=== PATIENT | male | born 1955 | race Caucasian/White ===

== ENCOUNTER → 2021-06-21 10:18 | Outpatient (CLI) | payer MEDICARE, OTHER, SELFPAY | PROVIDERS: Visit Provider Nurse Practitioner | DX: U07.1 COVID-19 (principal) | CPT/HCPCS: C9803; U0003; U0005 ==

== ENCOUNTER 2021-07-05 05:51 | Emergency (ER) | payer MEDICARE, OTHER, SELFPAY ==
[2021-07-05] VITALS (17 sets, daily range): BP systolic 99–158; BP diastolic 60–121; PULSE 60–83; RESP 15–24; TEMP 36.9; O2SAT 95–99; BMI 24.4
--- NOTE | 2021-07-05 05:53 | ECG_ITS ---
APPROVED REPORT Exam: Resting ECG HR:69 bpm ECG Measurements Heart Rate 69 AXES SD 186 P -27 QRSd 94 QRS -15 QT 388 T -50 QTc 415 Conclusion Normal sinus rhythm Incomplete right bundle branch block Nonspecific ST abnormality Abnormal ECG Electronically signed by : Jacob Magana MD 07/05/2021 20:35:35
--- NOTE | 2021-07-05 06:08 | CT_ITS ---
PROCEDURE INFORMATION: Exam: CT Head Without Contrast Exam date and time: 07/05/2021 6:08 AM Age: 65 years old Clinical indication: Injury or trauma; Fall; Blunt trauma (contusions or hematomas); Additional info: Syncope/fall TECHNIQUE: Imaging protocol: Computed tomography of the head without contrast. Radiation optimization: All CT scans at this facility use at least one of these dose optimization techniques: automated exposure control; mA and/or kV adjustment per patient size (includes targeted exams where dose is matched to clinical indication); or iterative reconstruction. COMPARISON: No relevant prior studies available. FINDINGS: Brain: Prominent sulci. Patchy hypodensity of the cerebral white matter which are nonspecific but likely secondary to microangiopathic changes. Cerebral ventricles: The ventricles are prominent secondary to diffuse volume loss/atrophy. The ventricular system may be mildly dilated out of proportion to the sulcal prominence. Clinical correlation is advised for possible normal pressure hydrocephalus. Paranasal sinuses: Visualized sinuses are unremarkable. No fluid levels. Mastoid air cells: Visualized mastoid air cells are well aerated. Bones/joints: Unremarkable. No acute fracture. Soft tissues: Unremarkable. IMPRESSION: Chronic age related changes but no evidence of acute intracranial pathology. The ventricular system may be mildly dilated out of proportion to the sulcal prominence. Clinical correlation is advised for possible normal pressure hydrocephalus.
--- NOTE | 2021-07-05 06:08 | XR_ITS ---
PROCEDURE INFORMATION: Exam: XR Chest Exam date and time: 07/05/2021 6:08 AM Age: 65 years old Clinical indication: Pain; Chest pressure; Additional info: Fall TECHNIQUE: Imaging protocol: XR of the chest. Views: 2 views. COMPARISON: No relevant prior studies available. FINDINGS: Lungs: Patchy airspace disease in the lateral left lung concerning for pneumonia, possibly viral. Pleural spaces: Blunting of the left costophrenic angle which may represent tiny pleural effusion or pleural fibrosis. Heart/Mediastinum: Unremarkable. No cardiomegaly. Bones/joints: Mild degenerative changes of the shoulder joints. IMPRESSION: Patchy airspace disease in the lateral left lung concerning for pneumonia, possibly viral.
--- NOTE | 2021-07-05 06:08 | XR_ITS ---
PROCEDURE INFORMATION: Exam: XR Pelvis Exam date and time: 07/05/2021 6:08 AM Age: 65 years old Clinical indication: Pain; Other: Fall TECHNIQUE: Imaging protocol: XR pelvis. Views: 1 or 2 view. COMPARISON: No relevant prior studies available. FINDINGS: Bones/joints: Bilateral total hip replacements. Soft tissues: Unremarkable. IMPRESSION: Bilateral total hip replacements. No fractures identified.
[2021-07-05 06:25] LABS: Basophils % 0.5 % (0.1-2.0); Eosinophils % 0.6 % (0.1-12.0); Hematocrit 50.1 % (42.0-52.0); Hemoglobin 17.5 g/dL (14.1-18.0); Lymphocytes % 19.4 % (10-50); Mean Corpuscular Hemoglobin 31.4 pg (27.0-31.2); Mean Corpuscular Volume 89.8 fl (80-94); Mean Platelet Volume 7.3 fl (7.4-10.4); Monocytes # 0.2 K/mm3 (0.1-1.0); Monocytes % 4.2 % (1.7-9.3); Neutrophils # 3.9 K/mm3 (1.8-7.8); Neutrophils % 75.3 % (37.0-80.0); Platelet Count 203 K/mm3 (142-424); Red Blood Count 5.57 M/mm3 (4.60-6.20); Red Cell Distribution Width 13.7 % (11.5-17.5); White Blood Count 5.2 K/mm3 (4.8-10.8)
[2021-07-05 06:28] LABS: Chloride 93 mmol/L (98-107); Sodium 134 mmol/L (136-145)
[2021-07-05 06:29] LABS: Potassium 3.5 mmoL/L (3.5-5.1)
[2021-07-05 06:31] LABS: Alanine Aminotransferase 43 U/L (12-78); Alkaline Phosphatase 144 U/L (38-126); Anion Gap 10.5 mEq/L (5-15); Aspartate Amino Transferase 49 U/L (17-59); Bilirubin,Total 0.8 mg/dl (0.2-1.3); Blood Urea Nitrogen 26 mg/dl (9-20); Carbon Dioxide 34 mmol/L (22.0-30.0); Creatinine Clearance Estimated 59 mL/min (50-200); Estimated Glomerular Filt Rate 51 ml/min (>60); GFR (African American) 61 ML/MIN (>60)
[2021-07-05 06:32] LABS: Albumin/Globulin Ratio 1.4 (1.1-1.8); Calcium 8.2 mg/dl (8.4-10.2); Globulin 2.8 g/dL (1.3-3.2); Glucose 122 mg/dl (74-100); Total Protein,Serum 6.8 g/dl (6.3-8.2)
--- NOTE | 2021-07-05 06:37 | HMH.EDSYNC ---
ED Disposition Clinical Impression: Syncope Qualifiers: Syncope type: unspecified Qualified Code(s): R55 - Syncope and collapse Disposition: Home, Self-Care Condition on Discharge: Good Instructions: DI for Syncope in Adults (Fainting) Additional Instructions: monitor bp and call pcp for follow up Referrals: Provider,Referral, [Primary Care Provider] - - Critical Care Critical Care Time: No Attestation: On 07/05/21, the high probability of a clinically significant, sudden or life threatening deterioration of the following system(s) required my full and direct attention, intervention and personal management. The time I documented below is in addition to time spent performing reported procedures but includes the following listed in this critical care notation. Medical Decision Making - Medical Records Medical records reviewed: Yes: I reviewed the patient's medical records. - Gigi Inquiry Pt receiving controlled substance: No Vital Signs: 07/05/21 05:48 07/05/21 06:41 07/05/21 06:43 Temperature 98.4 F Temperature Source Oral Pulse Rate 74 81 Pulse Rate [Apical] 70 Respiratory Rate 20 15 17 Blood Pressure 158/86 H 153/121 H Blood Pressure [Orthostatic Lying Left Arm] Blood Pressure [Orthostatic Sitting Left Arm] Blood Pressure [Orthostatic Standing Left Arm] Blood Pressure [Right Arm] 155/92 H Blood Pressure Mean 104 131 Blood Pressure Mean [Right Arm] 113 Blood Pressure Source [Right Arm] Automatic Cuff Blood Pressure Position [Right Arm] Supine 02 Sat by Pulse Oximetry 96 95 97 Oxygen Delivery Method Room Air 07/05/21 06:45 07/05/21 06:46 07/05/21 07:00 Temperature Temperature Source Pulse Rate 74 83 Pulse Rate [Apical] Respiratory Rate 17 17 Blood Pressure 130/79 136/85 Blood Pressure [Orthostatic Lying Left Arm] 158/86 H Blood Pressure [Orthostatic Sitting Left Arm] 153/121 H Blood Pressure [Orthostatic Standing Left Arm] 99/60 L Blood Pressure [Right Arm] Blood Pressure Mean 96 102 Blood Pressure Mean [Right Arm] Blood Pressure Source [Right Arm] Blood Pressure Position [Right Arm] 02 Sat by Pulse Oximetry 96 95 Oxygen Delivery Method 07/05/21 07:30 07/05/21 08:00 07/05/21 08:30 Temperature Temperature Source Pulse Rate 63 74 73 Pulse Rate [Apical] Respiratory Rate 18 22 15 Blood Pressure 141/75 H 141/76 H 154/85 H Blood Pressure [Orthostatic Lying Left Arm] Blood Pressure [Orthostatic Sitting Left Arm] Blood Pressure [Orthostatic Standing Left Arm] Blood Pressure [Right Arm] Blood Pressure Mean 97 102 104 Blood Pressure Mean [Right Arm] Blood Pressure Source [Right Arm] Blood Pressure Position [Right Arm] 02 Sat by Pulse Oximetry 97 97 98 Oxygen Delivery Method 07/05/21 09:00 07/05/21 09:31 07/05/21 10:00 Temperature Temperature Source Pulse Rate 66 72 72 Pulse Rate [Apical] Respiratory Rate 22 20 20 Blood Pressure 138/79 129/67 128/71 Blood Pressure [Orthostatic Lying Left Arm] Blood Pressure [Orthostatic Sitting Left Arm] Blood Pressure [Orthostatic Standing Left Arm] Blood Pressure [Right Arm] Blood Pressure Mean 111 87 90 Blood Pressure Mean [Right Arm] Blood Pressure Source [Right Arm] Blood Pressure Position [Right Arm] 02 Sat by Pulse Oximetry 99 96 96 Oxygen Delivery Method 07/05/21 10:30 07/05/21 11:00 07/05/21 11:30 Temperature Temperature Source Pulse Rate 66 60 69 Pulse Rate [Apical] Respiratory Rate 18 24 21 Blood Pressure 123/73 134/72 126/72 Blood Pressure [Orthostatic Lying Left Arm] Blood Pressure [Orthostatic Sitting Left Arm] Blood Pressure [Orthostatic Standing Left Arm] Blood Pressure [Right Arm] Blood Pressure Mean 91 92 88 Blood Pressure Mean [Right Arm] Blood Pressure Source [Right Arm] Blood Pressure Position [Right Arm] 02 Sat by Pulse Oximetry 97 97 97 Oxygen Delivery Me
[2021-07-05 06:45] LABS: Troponin I < 0.01 ng/ml (0.00-0.034)
[2021-07-05 07:11] LABS: Coronavirus 19, PCR Not Detected (NotDetected); Influenza A, PCR Not Detected (NotDetected); Influenza B, PCR Not Detected (NotDetected)
[2021-07-05 08:25] LABS: Microscopic, Urine URINE MICROSCOPIC (MICROSCOPIC)
[2021-07-05 08:27] LABS: Appearance,Urine CLEAR (Clear); Bilirubin,Urine Negative (Negative); Blood, Urine Negative (Negative); Color,Urine YELLOW (Yellow); Glucose,Urine (UA) Negative (Negative); Ketones,Urine Negative (Negative); Leukocyte Esterase,Urine Negative (Negative); Nitrate,Urine Negative (Negative); Protein,Urine TRACE (Negative)
[2021-07-05 08:53] LABS: Squamous Epithelial Cell,Urine Occasional #/hpf (0-5)
[2021-07-05 09:54] LABS: Troponin I < 0.01 ng/ml (0.00-0.034)
--- NOTE | 2021-07-05 10:21 | PC.NURSE ---
Patient ambulated 50 feet in room. Patient was stable and no complaints while walking.
--- NOTE | 2021-07-05 11:20 | PC.NURSE ---
waiting division order technician back from Dr. Schreiber
--- NOTE | 2021-07-05 12:20 | PC.NURSE ---
on the phone with
== END 2021-07-05 12:54 | disposition home or self-care (01) ==
PROVIDERS: Emergency Provider Emergency Medicine
DX: R55 Syncope and collapse (principal)
CPT/HCPCS: 36415; 70450; 71046; 72170; 80053; 81001; 84484; 85025; 93005; 96365; 99284; C9803; U0003; U0005

== ENCOUNTER 2021-07-06 21:07 | Inpatient (IN) | payer MEDICARE, OTHER, SELFPAY ==
[2021-07-06 21:19] VITALS: BP 136/80; PULSE 77; RESP 22; TEMP 38.1; O2SAT 93; BMI 25.7
[2021-07-06 21:30] VITALS: BP 138/81; PULSE 80; O2SAT 94
--- NOTE | 2021-07-06 21:37 | CT_ITS ---
PROCEDURE INFORMATION: Exam: CT Head Without Contrast Exam date and time: 07/06/2021 9:37 PM Age: 65 years old Clinical indication: Altered mental status/memory loss; Confusion or disorientation TECHNIQUE: Imaging protocol: Computed tomography of the head without contrast. Radiation optimization: All CT scans at this facility use at least one of these dose optimization techniques: automated exposure control; mA and/or kV adjustment per patient size (includes targeted exams where dose is matched to clinical indication); or iterative reconstruction. COMPARISON: CT HEAD/BRAIN WO CON 07/05/2021 6:31 AM FINDINGS: Brain: Periventricular and subcortical small vessel ischemic changes. Advanced atrophy associated, more than expected for age. No acute hemorrhage, mass effect, midline shift, or extra-axial fluid collection. Cerebral ventricles: Prominent ventriculomegaly, consider normal pressure hydrocephalus. Paranasal sinuses: Visualized sinuses are unremarkable. No fluid levels. Mastoid air cells: Visualized mastoid air cells are well aerated. Bones/joints: Unremarkable. No acute fracture. Soft tissues: Unremarkable. IMPRESSION: 1. No acute intracranial abnormality. 2. Atrophy with ventricles more prominent than sulci, consider normal pressure hydrocephalus. 3. No significant change since yesterday. 4. Limited study due to patient inability or unwillingness to fully cooperate.
--- NOTE | 2021-07-06 21:38 | XR_ITS ---
PROCEDURE INFORMATION: Exam: XR Chest Exam date and time: 07/06/2021 9:38 PM Age: 65 years old Clinical indication: Fever TECHNIQUE: Imaging protocol: XR of the chest. Views: 1 view. COMPARISON: CR XR CHEST 2V 07/05/2021 6:07 AM FINDINGS: Lungs: Progressive left lung infiltrate since yesterday. Pleural spaces: Unremarkable. No pleural effusion. No pneumothorax. Heart/Mediastinum: Unremarkable. No cardiomegaly. Bones/joints: Unremarkable. IMPRESSION: Progressive left lung infiltrate since yesterday.
[2021-07-06 21:51] VITALS: BP 136/76; PULSE 78; O2SAT 94
--- NOTE | 2021-07-06 21:55 | ECG_ITS ---
APPROVED REPORT Exam: Resting ECG HR:77 bpm ECG Measurements Heart Rate 77 AXES W[place] 182 P -23 QRSd 90 QRS -17 QT 368 T -27 QTc 416 Conclusion Normal sinus rhythm Nonspecific ST abnormality Abnormal ECG Electronically signed by : Jacob Magana MD 07/07/2021 12:34:32
[2021-07-06 21:56] LABS: Microscopic, Urine URINE MICROSCOPIC (MICROSCOPIC)
[2021-07-06 21:56] LABS: Basophils % 0.7 % (0.1-2.0); Eosinophils % 0.8 % (0.1-12.0); Hematocrit 48.9 % (42.0-52.0); Lymphocytes # 0.6 K/mm3 (0.7-4.5); Mean Corpuscular HGB Conc 32.6 g/dL (31.8-35.4); Mean Corpuscular Volume 95.1 fl (80-94); Mean Platelet Volume 7.6 fl (7.4-10.4); Monocytes # 0.2 K/mm3 (0.1-1.0); Neutrophils # 4.5 K/mm3 (1.8-7.8); Neutrophils % 83.5 % (37.0-80.0); Platelet Count 183 K/mm3 (142-424); Red Blood Count 5.14 M/mm3 (4.60-6.20); Red Cell Distribution Width 14.2 % (11.5-17.5); White Blood Count 5.4 K/mm3 (4.8-10.8)
--- NOTE | 2021-07-06 22:01 | HMH.EDAMS ---
ED Disposition Clinical Impression: Acute delirium, SIRS (systemic inflammatory response syndrome), COVID-19 CAP (community acquired pneumonia) Qualifiers: Laterality: left Lung location: unspecified part of lung Qualified Code(s): J18.9 - Pneumonia, unspecified organism Disposition: Admitted As Inpatient Condition on Discharge: Good - Critical Care Critical Care Time: No Attestation: On 07/06/21, the high probability of a clinically significant, sudden or life threatening deterioration of the following system(s) required my full and direct attention, intervention and personal management. The time I documented below is in addition to time spent performing reported procedures but includes the following listed in this critical care notation. Medical Decision Making - Medical Records Medical records reviewed: Yes: I reviewed the patient's medical records. - Gigi Inquiry Pt receiving controlled substance: No Vital Signs: 07/06/21 21:19 07/06/21 21:30 07/06/21 21:51 Temperature 100.6 F H Temperature Source Oral Pulse Rate 80 78 Pulse Rate [Right Brachial] 77 Respiratory Rate 22 Blood Pressure 138/81 136/76 Blood Pressure [Right Arm] 136/80 Blood Pressure Mean [Right Arm] 98 Blood Pressure Source [Right Arm] Automatic Cuff Blood Pressure Position [Right Arm] Sitting 02 Sat by Pulse Oximetry 93 L 94 L 94 L Oxygen Delivery Method Room Air Room Air Room Air 07/06/21 22:15 07/06/21 22:30 07/06/21 22:45 Temperature Temperature Source Pulse Rate 76 72 70 Pulse Rate [Right Brachial] Respiratory Rate Blood Pressure 136/80 130/70 127/68 Blood Pressure [Right Arm] Blood Pressure Mean [Right Arm] Blood Pressure Source [Right Arm] Blood Pressure Position [Right Arm] 02 Sat by Pulse Oximetry 95 94 L 94 L Oxygen Delivery Method Room Air Room Air Room Air - Lab Data Lab results reviewed: Yes: I reviewed the patient's lab results. Lab Results 07/06/21 21:17: SARS-CoV-2 (PCR) Detected A, Influenza A Untype (PCR) Not detected, Influenza Type B (PCR) Not detected 07/06/21 21:39: WBC 5.4, RBC 5.14, Hgb 16.0, Hct 48.9, MCV 95.1 H, MCH 31.0, MCHC 32.6, RDW 14.2, Plt Count 183, MPV 7.6, Neut % (Auto) 83.5 H, Lymph % (Auto) 11.0, [place] % (Auto) 4.0, Eos % (Auto) 0.8, Baso % (Auto) 0.7, Neut # (Auto) 4.5, Lymph # (Auto) 0.6 L, [place] # (Auto) 0.2, Eos # (Auto) 0.0, Baso # (Auto) 0.0, ESR 27 H 07/06/21 21:39: Sodium 129 L, Potassium 3.5, Chloride 90 L, Carbon Dioxide 34 H, Anion Gap 8.5, BUN 21 H, Creatinine 1.20, Estimated Creat Clear 73, Estimated GFR 60, Est GFR ( Amer) 73, Glucose 107 H, Calcium 8.2 L, Total Bilirubin 0.8, AST 43, ALT 31 D, Alkaline Phosphatase 117, Troponin I < 0.01, C-Reactive Protein 61.4 H, Total Protein 6.4, Albumin 3.7, Globulin 2.7, Albumin/Globulin Ratio 1.4, Procalcitonin 0.136, Salicylates < 1.0 L, Acetaminophen < 10 L 07/06/21 21:39: Lactate 1.0 07/06/21 21:39: Lactate Dehydrogenase 304 L 07/06/21 21:40: ABG pH 7.49 H, ABG pCO2 31.5 L, ABG pO2 69.3 L, ABG HCO3 23.7, ABG Total CO2 24.7, ABG O2 Saturation 95, ABG Base Excess 0.4 07/06/21 21:51: Urine Color Yellow, Urine Appearance Clear, Urine pH 6.0, Ur Specific [place] 1.020, Urine Protein Trace, Urine Glucose (UA) Negative, Urine Ketones Negative, Urine Blood Trace-i, Urine Nitrate Negative, Urine Bilirubin Negative, Urine Urobilinogen 1.0, Ur Leukocyte Esterase Negative, Ur Squamous Epith Cells Occasional 07/06/21 21:51: Urine Opiates Screen Negative, Urine Methadone Screen Negative, Ur Barbituates Screen Negative, Ur Phencyclidine Scrn Negative, Ur Amphetamines Screen Negative, U Benzodiazepines Scrn Negative, Urine Cocaine Screen Negative, U Marijuana (THC) Screen Negative Result diagrams: 07/06/21 21:39 07/06/21 21:39 Orders (Tests/Meds): ED MEDICATIONS Generic Name Dose Route Start Last Admin Trade Name Freq PRN Reason Stop Dose Admin Sodium Chloride 1,000 mls @ 999 mls/hr 07/06/21 22:00
[2021-07-06 22:02] LABS: Alanine Aminotransferase 31 U/L (12-78); Albumin Level 3.7 g/dl (3.5-5.0); Albumin/Globulin Ratio 1.4 (1.1-1.8); Alkaline Phosphatase 117 U/L (38-126); Anion Gap 8.5 mEq/L (5-15); Aspartate Amino Transferase 43 U/L (17-59); Bilirubin,Total 0.8 mg/dl (0.2-1.3); Blood Urea Nitrogen 21 mg/dl (9-20); Calcium 8.2 mg/dl (8.4-10.2); Carbon Dioxide 34 mmol/L (22.0-30.0); Chloride 90 mmol/L (98-107); Creatinine Clearance Estimated 73 mL/min (50-200); Estimated Glomerular Filt Rate 60 ml/min (>60); GFR (African American) 73 ML/MIN (>60); Globulin 2.7 g/dL (1.3-3.2); Glucose 107 mg/dl (74-100); Potassium 3.5 mmoL/L (3.5-5.1); Sodium 129 mmol/L (136-145); Total Protein,Serum 6.4 g/dl (6.3-8.2)
[2021-07-06 22:04] LABS: Acetaminophen < 10 ug/ml (10-30); Salicylate < 1.0 mg/dL (2.0-20.0)
[2021-07-06 22:08] LABS: C-Reactive Protein 61.4 mg/L (0-4)
[2021-07-06 22:15] VITALS: BP 136/80; PULSE 76; O2SAT 95
[2021-07-06 22:18] LABS: Procalcitonin 0.136 ng/mL (0.0-2.0)
[2021-07-06 22:23] LABS: Amphetamine/Metha Screen,Urine Negative ng/ml (<1000); Benzodiazepines Screen,Urine Negative ng/ml (<200)
[2021-07-06 22:24] LABS: Barbiturates Screen,Urine Negative ng/ml (<200)
[2021-07-06 22:25] LABS: Cannabinoid Screen,Urine Negative ng/ml (<50); Methadone Screen,Urine Negative ng/ml (<300)
[2021-07-06 22:26] LABS: Cocaine Screen,Urine Negative ng/ml (<300)
[2021-07-06 22:27] LABS: Appearance,Urine CLEAR (Clear); Bilirubin,Urine Negative (Negative); Blood, Urine TRACE-I (Negative); Color,Urine YELLOW (Yellow); Glucose,Urine (UA) Negative (Negative); Ketones,Urine Negative (Negative); Leukocyte Esterase,Urine Negative (Negative); Nitrate,Urine Negative (Negative); Opiate Screen,Urine Negative ng/ml (<300); Phencyclidine Screen,Urine Negative ng/ml (<25); Protein,Urine TRACE (Negative)
[2021-07-06 22:27] LABS: Erythrocyte Sedimentation Rate 27 mm/hr (0-20)
[2021-07-06 22:30] VITALS: BP 130/70; PULSE 72; O2SAT 94
[2021-07-06 22:30] LABS: Squamous Epithelial Cell,Urine Occasional #/hpf (0-5)
[2021-07-06 22:31] LABS: Troponin I < 0.01 ng/ml (0.00-0.034)
--- NOTE | 2021-07-06 22:44 | CT_ITS ---
PROCEDURE INFORMATION: Exam: CTA Chest With Contrast Exam date and time: 07/06/2021 10:44 PM Age: 65 years old Clinical indication: Shortness of breath; Additional info: SOA TECHNIQUE: Imaging protocol: Computed tomographic angiography of the chest with contrast. 3D rendering (Not supervised by radiologist): MIP and/or 3D reconstructed images were created by the technologist. Radiation optimization: All CT scans at this facility use at least one of these dose optimization techniques: automated exposure control; mA and/or kV adjustment per patient size (includes targeted exams where dose is matched to clinical indication); or iterative reconstruction. Contrast material: ISOVUE; Contrast volume: 70 ml; Contrast route: INTRAVENOUS (IV); COMPARISON: CR XR CHEST PORTABLE 07/06/2021 10:03 PM FINDINGS: Pulmonary arteries: No CT evidence of pulmonary embolus. Aorta: Unremarkable. No aortic aneurysm. No aortic dissection. Lungs: Peripheral ground-glass infiltrates characteristic of COVID-19. Pleural spaces: Unremarkable. No pneumothorax. No pleural effusion. Heart: Unremarkable. No cardiomegaly. No pericardial effusion. Lymph nodes: Unremarkable. No enlarged lymph nodes. Bones/joints: Unremarkable. No acute fracture. Soft tissues: Unremarkable. IMPRESSION: 1. Peripheral ground-glass infiltrates characteristic of COVID-19. 2. No CT evidence of pulmonary embolus.
[2021-07-06 22:45] VITALS: BP 127/68; PULSE 70; O2SAT 94
[2021-07-06 22:50] VITALS: BMI 25.1
[2021-07-06 22:51] LABS: Lactate Dehydrogenase 304 U/L (313-618)
[2021-07-06 22:53] LABS: ABG Base Excess 0.4 mmol/L (-2.4-2.3); ABG HCO3 23.7 mmhg (22.0-26.0); ABG Oxygen Saturation 95 % (90-100); ABG PCO2 31.5 mmhg (35.0-45.0); ABG PH 7.49 mmol/L (7.35-7.45); ABG PO2 69.3 mmhg (80-100); ABG TCO2 24.7 mmhg (23-27)
[2021-07-06 23:10] LABS: Influenza A, PCR Not Detected (NotDetected); Influenza B, PCR Not Detected (NotDetected)
[2021-07-06 23:30] LABS: Coronavirus 19, PCR Detected (NotDetected)
[2021-07-07] VITALS (10 sets, daily range): BP systolic 125–150; BP diastolic 59–71; PULSE 40–102; RESP 16–20; TEMP 36.3–37.4; O2SAT 94–99; BMI 25.4; BMI 25.3
--- NOTE | 2021-07-07 00:33 | PC.NURSE ---
Patient arrived to the floor via stretcher at this time with staff.
[2021-07-07 01:30] LABS: Troponin I < 0.01 ng/ml (0.00-0.034)
[2021-07-07 03:55] LABS: POC Glucose,Bedside 120 (70-110)
[2021-07-07 04:14] LABS: Basophils % 0.3 % (0.1-2.0); Eosinophils % 0.1 % (0.1-12.0); Hematocrit 45.6 % (42.0-52.0); Lymphocytes # 0.7 K/mm3 (0.7-4.5); Lymphocytes % 13.6 % (10-50); Mean Corpuscular HGB Conc 32.8 g/dL (31.8-35.4); Mean Corpuscular Hemoglobin 30.9 pg (27.0-31.2); Mean Corpuscular Volume 94.2 fl (80-94); Mean Platelet Volume 7.9 fl (7.4-10.4); Monocytes # 0.2 K/mm3 (0.1-1.0); Monocytes % 2.9 % (1.7-9.3); Neutrophils # 4.3 K/mm3 (1.8-7.8); Neutrophils % 83.1 % (37.0-80.0); Platelet Count 164 K/mm3 (142-424); Red Blood Count 4.84 M/mm3 (4.60-6.20); White Blood Count 5.1 K/mm3 (4.8-10.8)
[2021-07-07 04:15] LABS: Chloride 97 mmol/L (98-107)
[2021-07-07 04:16] LABS: Potassium 4.1 mmoL/L (3.5-5.1); Sodium 132 mmol/L (136-145)
[2021-07-07 04:19] LABS: Anion Gap 9.1 mEq/L (5-15); Blood Urea Nitrogen 20 mg/dl (9-20); Calcium 7.5 mg/dl (8.4-10.2); Carbon Dioxide 30 mmol/L (22.0-30.0); Creatinine Clearance Estimated 66 mL/min (50-200); Estimated Glomerular Filt Rate 55 ml/min (>60); GFR (African American) 67 ML/MIN (>60); Glucose 128 mg/dl (74-100)
[2021-07-07 04:33] LABS: Troponin I < 0.01 ng/ml (0.00-0.034)
--- NOTE | 2021-07-07 07:29 | PC.NURSE ---
pt has been sleeping all night and arouses when name called only, pt seems as if he has been sedated,confused at times, VSS, pt has been afebrile cool and sweaty, tele reveals bradycardia hr in 40's and 50's, f/c to bsd, pt able to follow commands when asked, fsbs checked related to sweating as was 120.
--- NOTE | 2021-07-07 08:23 | HMH.PHAVTE ---
[facility] VTE Monitoring - Patient Demographics Admission date: 07/07/21 Report Date: 07/07/21 Time: 08:23 Allergies/Adverse Reactions: Patient Allergies codeine Adverse Reaction (Unknown, Verified 07/07/21 07:35) NAUSEA/VOMITING Height: 1.83 m Weight: 85.275 kg Patient Problems: Current Active Problems Acute delirium (Acute) CAP (community acquired pneumonia) (Acute) SIRS (systemic inflammatory response syndrome) (Acute) COVID-19 (Acute) - VTE Risk Labs: VTE Related Lab Results Hgb 15.0 g/dL (14.1-18.0) 07/07/21 03:55 Hct 45.6 % (42.0-52.0) 07/07/21 03:55 Plt Count 164 K/mm3 (142-424) 07/07/21 03:55 BUN 20 mg/dl (9-20) 07/07/21 03:55 Creatinine 1.30 mg/dl (0.66-1.25) H 07/07/21 03:55 Estimated Creat Clear 66 mL/min (50-200) 07/07/21 03:55 Was VTE Risk Assessment Performed: Yes VTE Score: 4 VTE Risk Level: Low Risk Clinical Trial Participant: No - Prophylaxis VTE Prophylaxis Ordered?: Yes Types of VTE Prophylaxis: TEDS Knee High
--- NOTE | 2021-07-07 10:30 | HMH.HP ---
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 His recent history is somewhat complex, he was diagnosed with COVID-19 pneumonia on June 17, had fairly mild disease-has had Moderna vaccinations, and he and his both had fairly mild cases and he improved but approximately 4 days ago began to become very confused, have the recurrent onset of fever. They went to his family practice group in [place], and were given instructions to take vitamin D and zinc. He did not feel much better and presented to the emergency department here a couple of days ago, and apparently was diagnosed with syncope although there is no ER documentation that I can find in the computer, there is a discharge packet that indicated he was diagnosed with syncope and instructed to drink more fluids. Did not feel much better after this and came back to the emergency department late yesterday. Found to be febrile, chest x-ray showed infiltrate and possible bacterial pneumonia, admitted to hospital for further diagnostic testing. CT of head was done which was nondiagnostic. Labs showed minimal acute kidney injury and inflammatory markers positive but otherwise nondiagnostic. His notes that he has been very confused at night, has been falling at home, and has simply not been himself and has been very lethargic and dazed at home. [facility] History I have reviewed the patient's past medical history: Yes Medical History: Reports:: Hyperlipidemia, Hypertension *Have you ever received a pneumonia vaccine?: No *Have you received a flu vaccine this season?: No Other Medical History: Reports: Arthritis Comment:: On chronic immunosuppressive medications Laterality Cases: Left: Arthroscopy Knee, Bilateral: Total Hip Replacement Other Surgeries: Yes: Cholecystectomy - *Social History Smoking Status: Former smoker Alcohol Intake: never *Occupational Status:: employed *Travel in the last 8 weeks: None Family Hx:: Unable to obtain Review of Systems - Review of Systems Review of systems:: unable to obtain - *Neurologic Reports confusion, Denies abnormal speech, Denies localized weakness, Denies headache(s), Denies seizure-like activity Meds Home Medications Medication Instructions Recorded Confirmed Type Tramadol HCl [Tramadol 50mg 50 mg PO DAILYP PRN 07/05/21 07/07/21 History Tab] Triamterene/Hydrochlorothiazid 1 each PO DAILY 07/05/21 07/06/21 History [Triamterene-Hctz 37.5-25 mg Tb] Zinc 50 mg PO DAILY 07/05/21 07/06/21 History predniSONE [Prednisone 5mg 5 mg PO DAILY 07/05/21 07/06/21 History Tab] Cholecalciferol (Vitamin D3) 1,000 unit PO DAILY 07/06/21 07/06/21 History [Vitamin D3 1,000 Unit Cap] Allergies Allergy/AdvReac Type Severity Reaction Status Date / Time codeine AdvReac Unknown NAUSEA/VOMI Verified 07/07/21 07:35 TING Exam Vital signs and Labs for Last 24 Hours: Temp Pulse Resp BP Pulse Ox 97.4 F L 48 L 16 128/71 98 07/07/21 08:00 07/07/21 08:00 07/07/21 08:00 07/07/21 08:00 07/07/21 08:00 Laboratory Results - last 24 hr 07/06/21 21:17: SARS-CoV-2 (PCR) Detected A, Influenza A Untype (PCR) Not detected, Influenza Type B (PCR) Not detected 07/06/21 21:39: WBC 5.4, RBC 5.14, Hgb 16.0, Hct 48.9, MCV 95.1 H, MCH 31.0, MCHC 32.6, RDW 14.2, Plt Count 183, MPV 7.6, Neut % (Auto) 83.5 H, Lymph % (Auto) 11.0, [place] % (Auto) 4.0, Eos % (Auto) 0.8, Baso % (Auto) 0.7, Neut # (Auto) 4.5, Lymph # (Auto) 0.6 L, [place] # (Auto) 0.2, Eos # (Auto) 0.0, Baso # (Auto) 0.0, ESR 27 H 07/06/21 21:39: Sodium 129 L, Potassium 3.5, Chloride 90 L, Carb
--- NOTE | 2021-07-07 10:34 | FL_ITS ---
PROCEDURE: FL GUIDED LUMBAR PUNCTURE LP CLINICAL INDICATION: MS CHANGES COMPARISON: No exams were available for comparison TECHNIQUE: Informed consent was obtained prior to procedure. Under local anesthesia with 1% lidocaine and under fluoroscopic guidance a 20-gauge spinal needle was inserted into the L3-L4 interspace. Approximately 10 cc of clear CSF was obtained and sent to laboratory for analysis. Opening pressure was obtained with the patient in the prone position and was less than 3 cc. The patient tolerated the procedure well without evidence of immediate complication IMPRESSION: Successful fluoroscopy guided lumbar puncture without complications. Dictated by: Jeronimo Valladares MD 07/07/2021 11:50 Jeronimo Valladares MD in [place] 07/07/2021 11:50
[2021-07-07 10:49] LABS: Ammonia < 9 umol/L (9-30)
--- NOTE | 2021-07-07 10:49 | MR_ITS ---
PROCEDURE INFORMATION: Exam: MR Head Without Contrast Exam date and time: 07/07/2021 10:49 AM Age: 65 years old Clinical indication: Altered mental status/memory loss; Patient HX: Mental status changes TECHNIQUE: Imaging protocol: MR of the head without contrast. COMPARISON: CT HEAD/BRAIN WO CON 07/06/2021 9:57 PM FINDINGS: Brain: There is a small focus of restricted diffusion within the left parietal cortex. Corresponding decreased signal on the ADC map is present. The findings are consistent with an acute to subacute infarct. There is subtle thickening of the dura or a tiny subdural hematoma around the posterior left parietal lobe, measuring 2 mm in thickness. There is no mass effect or midline shift. Age-related cerebral and cerebellar substance loss is present. Scattered increased T2 and FLAIR signal within the periventricular and subcortical white matter is present. This is nonspecific but likely related to chronic microangiopathic ischemic change. Cerebral ventricles: Moderate dilation of the lateral and third ventricles is noted. This appears out of proportion to the amount of surrounding atrophy and sulcal prominence. Therefore, the ventriculomegaly may be secondary to normal pressure hydrocephalus and/or ex vacuo dilation. Bones/joints: Unremarkable. Paranasal sinuses: Normal as visualized. No acute sinusitis. Mastoid air cells: Normal as visualized. No mastoid effusion. Orbital cavity: Unremarkable. Soft tissues: Unremarkable. IMPRESSION: 1. Tiny acute/subacute cortical infarct involving the posterior left parietal lobe 2. 2 mm subdural hematoma around the posterior left parietal lobe 3. Moderately enlarged lateral and third ventricles, possibly related to normal pressure hydrocephalus superimposed on ex vacuo dilation.
[2021-07-07 10:53] LABS: Thyroid Stimulating Hormone 0.43 uIU/mL (0.465-4.68)
[2021-07-07 11:28] LABS: Vitamin B12 450 pg/mL (239-931)
[2021-07-07 11:30] LABS: Folate 8.07 ng/mL
[2021-07-07 12:13] LABS: Glucose,CSF 59 mg/dl (40-70)
[2021-07-07 12:36] LABS: Appearance,CSF Clear (Clear)
[2021-07-07 12:37] LABS: Volume,CSF 9 mL
[2021-07-07 12:38] LABS: Red Blood Cell,CSF 2 cells/uL (0); White Blood Cell,CSF 1 cells/uL (0-5)
[2021-07-07 13:32] LABS: Mononuclear WBCs,CSF 100 %; Polynuclear WBCs,CSF 0 %
--- NOTE | 2021-07-07 20:19 | PC.NURSE ---
No acute changes. Pt seems to be doing better this evening. Dr. Magana ordered lovenox for pt and is testing for a legionnaires disease. Awaiting results. Dr. Magana also stated pt was ok to be out of isolation for covid 19.
[2021-07-08] VITALS (7 sets, daily range): BP systolic 112–154; BP diastolic 62–73; PULSE 53–77; RESP 15–19; TEMP 36.3–38.4; O2SAT 92–98; BMI 25.4
--- NOTE | 2021-07-08 06:06 | PC.NURSE ---
P/t alert and oriented t/o shift, reports feeling somewhat better. Pt ran fever of 101.2 treated with medication per sep. Celestin cath draining to gravity at bedside. Call storey in reach, will continue to monitor.
[2021-07-08 08:13] LABS: Basophils % 0.2 % (0.1-2.0); Eosinophils % 0.1 % (0.1-12.0); Hematocrit 41.5 % (42.0-52.0); Hemoglobin 13.6 g/dL (14.1-18.0); Lymphocytes # 0.6 K/mm3 (0.7-4.5); Lymphocytes % 10.8 % (10-50); Mean Corpuscular HGB Conc 32.9 g/dL (31.8-35.4); Mean Corpuscular Hemoglobin 30.7 pg (27.0-31.2); Mean Corpuscular Volume 93.5 fl (80-94); Mean Platelet Volume 8.5 fl (7.4-10.4); Monocytes # 0.2 K/mm3 (0.1-1.0); Monocytes % 4.1 % (1.7-9.3); Neutrophils # 4.8 K/mm3 (1.8-7.8); Neutrophils % 84.8 % (37.0-80.0); Platelet Count 166 K/mm3 (142-424); Red Blood Count 4.43 M/mm3 (4.60-6.20); White Blood Count 5.6 K/mm3 (4.8-10.8)
[2021-07-08 08:19] LABS: Chloride 105 mmol/L (98-107); Potassium 3.2 mmoL/L (3.5-5.1); Sodium 136 mmol/L (136-145)
[2021-07-08 08:22] LABS: Anion Gap 7.2 mEq/L (5-15); Blood Urea Nitrogen 19 mg/dl (9-20); Calcium 7.2 mg/dl (8.4-10.2); Carbon Dioxide 27 mmol/L (22.0-30.0); Creatinine Clearance Estimated 78 mL/min (50-200); Estimated Glomerular Filt Rate 67 ml/min (>60); GFR (African American) 81 ML/MIN (>60); Glucose 94 mg/dl (74-100)
--- NOTE | 2021-07-08 08:57 | HMH.ACPN2 ---
Internal Medicine - PN: Subj *Date: 07/08/21 *Time: 08:57 Interval history: Patient went through his extensive work-up yesterday including lumbar puncture which was unrevealing for causes of infectious etiology of his confusion. MRI scan did reveal small, acute parietal stroke with very small evidence of possible subdural injury. This correlates with his history of confusion and then his fall at home. From a time course it sounds like the confusion, probably related to the stroke started first before his falls which may have caused the subdural contusion. Exam Vital signs and Labs for Last 24 Hours: Temp Pulse Resp BP Pulse Ox 98.9 F 77 18 140/66 92 L 07/08/21 06:35 07/08/21 04:00 07/08/21 04:00 07/08/21 04:00 07/08/21 04:00 Laboratory Results - last 24 hr 07/07/21 03:55: Vitamin B12 450, Folate 8.07, TSH 0.43 L 07/07/21 10:15: Ammonia < 9 L 07/07/21 11:10: CSF Volume 9, CSF Appearance Clear, CSF WBC 1, CSF RBC 2, CSF Mononuclear WBCs % 100, CSF Polynuclear WBCs % 0 07/07/21 11:10: CSF Glucose 59, CSF Total Protein 72.0 H 07/08/21 07:10: WBC 5.6, RBC 4.43 L, Hgb 13.6 L, Hct 41.5 L, MCV 93.5, MCH 30.7, MCHC 32.9, RDW 14.0, Plt Count 166, MPV 8.5, Neut % (Auto) 84.8 H, Lymph % (Auto) 10.8, [place]orne % (Auto) 4.1, Eos % (Auto) 0.1, Baso % (Auto) 0.2, Neut # (Auto) 4.8, Lymph # (Auto) 0.6 L, [place]orne # (Auto) 0.2, Eos # (Auto) 0.0, Baso # (Auto) 0.0 07/08/21 07:10: Sodium 136, Potassium 3.2 L D, Chloride 105, Carbon Dioxide 27, Anion Gap 7.2, BUN 19, Creatinine 1.10, Estimated Creat Clear 78, Estimated GFR 67, Est GFR ( Amer) 81 D, Glucose 94, Calcium 7.2 L I & O for Last 24 hours: Intake & Output 07/05/21 07/06/21 07/07/21 07/08/21 11:59 11:59 11:59 11:59 Intake Total 360 / 360 Output Total 1000 / 1000 500 / 500 Balance -1000 / -1000 -140 / -140 Weight 188 lb 187 lb 9 oz Microbiology Reports for the Last 24 Hours: Microbiology 07/07/21 11:10 Cerebral Spinal Fluid Gram Stain - Final Narrative: Patient states he feels better today. Is much more talkative. Interactive. Does not fall asleep during the exam as previously. Heart rate regular. Abdomen soft, lungs have good expansion. Able to move arms and legs well. Globally weak still. Assessment and Plan (1) Acute delirium Status: Acute Category: Medical Code(s): R41.0 - Disorientation, unspecified (2) CAP (community acquired pneumonia) Status: Acute Qualifiers: Laterality: left Lung location: unspecified part of lung Qualified Code(s): J18.9 - Pneumonia, unspecified organism Category: Medical Code(s): J18.9 - Pneumonia, unspecified organism (3) COVID-19 Status: Acute Category: Medical Code(s): U07.1 - COVID-19 (4) CVA (cerebral vascular accident) Status: Acute Category: Medical Code(s): I63.9 - Cerebral infarction, unspecified - Assessment and plan all Dx Assessment and Plan for all problems:: Continue antibiotics until blood cultures clear, covering for pneumonia. Acute stroke seems to explain most of his symptoms given his recent hypercoagulable state. I gave him Lovenox yesterday after the initial diagnosis. We will discontinue that and transition to aspirin therapy. PT evaluation for home safety. Echo and carotid Dopplers when available.
--- NOTE | 2021-07-08 11:39 | HMH.PTEV ---
Physical Therapy Evaluation Rehab PT IP Evaluation Start: 07/08/21 08:56 Freq: ONCE Status: Active Protocol: Document 07/08/21 11:35 LEOBARDO (Rec: 07/08/21 11:39 LEOBARDO [id number]) Subjective/History History History Pt admitted as 65 yo male w/ CAP, generalized weakness Subjective Subjective Pt reports no pain this am, ' just feel weak and tired'. Rehab PT IP Eval Objective Appearance Patient Behavior Appropriate,Cooperative Patient Orientation Person,Place,Time,Name, Birthday Difficulty following instructions none Speech Pattern Clear,Appropriate Ambulation Patient Able to Ambulate Yes Ambulation Observation IP General Gait Pattern Observation No Deviations/Normal Ambulation Distance (feet) 8 Ambulation Assistive Device None Ambulation Ability Contact Guard/Hand Hold Balance Ability to Arise Able, uses arms to help Sitting Balance Steady, safe Standing Balance Steady, wide stance Dynamic Sitting Balance Ability Normal Dynamic Standing Balance Ability Fair Transfers Bed Transfer Ability Supervision/Stand by Sit to Stand Bed Transfer Ability Contact Guard/Hand Hold ROM All Extremities PT ROM Status WFL MMT All Extremities PT MMT WFL Rehab PT IP prob,goals,plan Problems Date of Evaluation: 07/08/21 PT IP Problems Bed Mobility,Transfers,Gait, Balance Rehab Potential Rehab Potential Good Equipment Needs Assistive Devices Rolling / Wheeled Walker Plan PT Intervention Plan Bed Mobility,Transfers,Gait, Balance PT Plan Frequency BID Duration LOS Discharge Goals Bed Transfer Ability Supervision/Stand by Sit to Stand Chair Transfer Ability Supervision/Stand by Ambulation Assistive Device Rolling Walker Ambulation Distance (feet) 20 Discharge Plan PT Discharge Plan Pt to return to home w/spouse w/execution of aforementioned rehab goals G -code Required No Eval Complexity Eval Charge Codes 21911 - Low Complexity PHYSICIAN CERTIFICATION: I certify the specified therapy services for Bharath Baker are required, authorized, and reviewed every 30 days.
--- NOTE | 2021-07-08 18:51 | PC.NURSE ---
pt has been cooperative and oriented through out the entire shift. F/c at bedside draining. no c/o soa
--- NOTE | 2021-07-08 21:57 | PC.NURSE ---
No care needed
[2021-07-09] VITALS: BP 138/71; PULSE 61; PULSE 70; RESP 21; TEMP 36.7; O2SAT 97
--- NOTE | 2021-07-09 03:00 | PC.NURSE ---
A&OX4. TOLERATING RA WELL. PT HAS HAD INTERMITTENT NON-PRODUCTIVE COUGH. HAS HAD NO C/O THUS FAR. F/C PRESENT DRAINING BRIGHT YELLOW URINE. VSS WILL CONTINUE TO MONITOR.
[2021-07-09 04:00] VITALS: BP 143/66; PULSE 60; PULSE 64; RESP 17; TEMP 38; O2SAT 95
[2021-07-09 04:43] VITALS: BMI 26.4
[2021-07-09 05:45] LABS: Basophils % 0.4 % (0.1-2.0); Eosinophils % 0.8 % (0.1-12.0); Hematocrit 38.6 % (42.0-52.0); Hemoglobin 12.6 g/dL (14.1-18.0); Lymphocytes # 0.6 K/mm3 (0.7-4.5); Mean Corpuscular HGB Conc 32.7 g/dL (31.8-35.4); Mean Corpuscular Hemoglobin 30.8 pg (27.0-31.2); Mean Platelet Volume 8.6 fl (7.4-10.4); Monocytes # 0.2 K/mm3 (0.1-1.0); Monocytes % 3.4 % (1.7-9.3); Neutrophils # 3.6 K/mm3 (1.8-7.8); Neutrophils % 82.5 % (37.0-80.0); Platelet Count 178 K/mm3 (142-424); Red Blood Count 4.11 M/mm3 (4.60-6.20); Red Cell Distribution Width 13.9 % (11.5-17.5); White Blood Count 4.3 K/mm3 (4.8-10.8)
[2021-07-09 05:51] LABS: Blood Urea Nitrogen 15 mg/dl (9-20); Calcium 7.1 mg/dl (8.4-10.2); Creatinine Clearance Estimated 90 mL/min (50-200); Estimated Glomerular Filt Rate 84 ml/min (>60); GFR (African American) 102 ML/MIN (>60); Potassium 3.1 mmoL/L (3.5-5.1)
[2021-07-09 06:08] LABS: Anion Gap 6.1 mEq/L (5-15); Carbon Dioxide 27 mmol/L (22.0-30.0); Chloride 101 mmol/L (98-107); Glucose 91 mg/dl (74-100); Sodium 131 mmol/L (136-145)
--- NOTE | 2021-07-09 07:27 | XR_ITS ---
PROCEDURE INFORMATION: Exam: XR Chest Exam date and time: 07/09/2021 7:27 AM Age: 65 years old Clinical indication: Shortness of breath; Additional info: F/u pneumonia TECHNIQUE: Imaging protocol: XR of the chest. Views: 2 views. COMPARISON: CR XR CHEST PORTABLE 07/06/2021 10:03 PM FINDINGS: Lungs: Again noted is hazy airspace consolidation in the mid and lower left lung. Small amount of consolidation in the infrahilar right lung. The remainder of the right lung is clear. Pleural spaces: Unremarkable. No pleural effusion. No pneumothorax. Heart/Mediastinum: Unremarkable. No cardiomegaly. Bones/joints: Unremarkable. IMPRESSION: Hazy bilateral airspace consolidation, unchanged in the interval.
--- NOTE | 2021-07-09 07:48 | HMH.ACPN2 ---
Internal Medicine - PN: Subj *Date: 07/09/21 *Time: 07:48 Interval history: Overall patient feels much better, much more talkative, oriented. States that he feels much more energetic and much less cloudy. Patient did spike a temperature through the night over 100, did not note that he felt bad. Blood pressures been in the 140s. Review of labs from his CSF, microbiology testing, etc. noted. Exam Vital signs and Labs for Last 24 Hours: Temp Pulse Resp BP Pulse Ox 100.4 F H 64 17 143/66 H 95 07/09/21 04:00 07/09/21 04:00 07/09/21 04:00 07/09/21 04:00 07/09/21 04:00 Laboratory Results - last 24 hr 07/08/21 07:10: WBC 5.6, RBC 4.43 L, Hgb 13.6 L, Hct 41.5 L, MCV 93.5, MCH 30.7, MCHC 32.9, RDW 14.0, Plt Count 166, MPV 8.5, Neut % (Auto) 84.8 H, Lymph % (Auto) 10.8, Sibley % (Auto) 4.1, Eos % (Auto) 0.1, Baso % (Auto) 0.2, Neut # (Auto) 4.8, Lymph # (Auto) 0.6 L, Sibley # (Auto) 0.2, Eos # (Auto) 0.0, Baso # (Auto) 0.0 07/08/21 07:10: Sodium 136, Potassium 3.2 L D, Chloride 105, Carbon Dioxide 27, Anion Gap 7.2, BUN 19, Creatinine 1.10, Estimated Creat Clear 78, Estimated GFR 67, Est GFR ( Amer) 81 D, Glucose 94, Calcium 7.2 L 07/09/21 05:19: WBC 4.3 L, RBC 4.11 L, Hgb 12.6 L, Hct 38.6 L, MCV 94.0, MCH 30.8, MCHC 32.7, RDW 13.9, Plt Count 178, MPV 8.6, Neut % (Auto) 82.5 H, Lymph % (Auto) 13.0, Sibley % (Auto) 3.4, Eos % (Auto) 0.8, Baso % (Auto) 0.4, Neut # (Auto) 3.6, Lymph # (Auto) 0.6 L, Sibley # (Auto) 0.2, Eos # (Auto) 0.0, Baso # (Auto) 0.0 07/09/21 05:19: Sodium 131 L, Potassium 3.1 L, Chloride 101, Carbon Dioxide 27, Anion Gap 6.1, BUN 15, Creatinine 0.90, Estimated Creat Clear 90, Estimated GFR 84, Est GFR ( Amer) 102 D, Glucose 91, Calcium 7.1 L I & O for Last 24 hours: Intake & Output 07/06/21 07/07/21 07/08/21 07/09/21 11:59 11:59 11:59 11:59 Intake Total 1080 / 1080 960 / 960 Output Total 1000 / 1000 800 / 800 1100 / 1100 Balance -1000 / -1000 280 / 280 -140 / -140 Weight 188 lb 187 lb 9 oz 195 lb 6 oz Microbiology Reports for the Last 24 Hours: Microbiology 07/06/21 21:39 Blood Blood Culture - Preliminary NO GROWTH AFTER 48 HOURS 07/06/21 21:39 Blood Blood Culture - Preliminary NO GROWTH AFTER 48 HOURS 07/07/21 11:10 Cerebral Spinal Fluid Gram Stain - Final 07/07/21 11:10 Cerebral Spinal Fluid CSF Culture - Preliminary NO GROWTH AFTER 24 HOURS Narrative: Patient is talkative, alert. Much more interactive. Lungs clear bilaterally. Heart rate regular. Abdomen soft. No extremity edema. Remains somewhat globally weak but vastly improved over admission exam. No fever currently Assessment and Plan (1) Acute delirium Status: Acute Category: Medical Code(s): R41.0 - Disorientation, unspecified (2) CAP (community acquired pneumonia) Status: Acute Qualifiers: Laterality: left Lung location: unspecified part of lung Qualified Code(s): J18.9 - Pneumonia, unspecified organism Category: Medical Code(s): J18.9 - Pneumonia, unspecified organism (3) COVID-19 Status: Acute Category: Medical Code(s): U07.1 - COVID-19 (4) CVA (cerebral vascular accident) Status: Acute Category: Medical Code(s): I63.9 - Cerebral infarction, unspecified - Assessment and plan all Dx Assessment and Plan for all problems:: 1. Acute stroke-seems to be improving. 1 day of Lovenox now followed on antiplatelet therapy. Continue this cautiously. 2. Febrile illness-on treatment for post Covid lobar pneumonia. Seems to be doing well. Culture still pending from CSF, blood and sputum. 3. Hypertension-patient has minimal hyponatremia so we will hold his diuretics that he been on before. Start amlodipine today. 4. Hypokalemia/hypocalcemia. Replace this today. Try to get patient up in a chair today. Formal physical therapy evaluation was yesterday. Appreci
[2021-07-09 08:00] VITALS: BP 126/56; PULSE 58; PULSE 67; RESP 16; TEMP 36.8; O2SAT 95
--- NOTE | 2021-07-09 10:13 | PC.NURSE ---
pt ambuloated independently to BR. generalized weakness noted but his gait was steady. Had large BM. he is now up in the chair
[2021-07-09 12:00] VITALS: BP 128/73; PULSE 59; RESP 16; TEMP 36.6; O2SAT 97
[2021-07-09 13:08] VITALS: BMI 265794.7
--- NOTE | 2021-07-09 13:36 | PC.NURSE ---
spoke to Dr. Magana regarding pts Vann. Orders received to dc vann
[2021-07-09 16:00] VITALS: BP 155/60; PULSE 52; RESP 16; TEMP 36.6; O2SAT 97
--- NOTE | 2021-07-09 19:08 | PC.NURSE ---
pt has done well this shift. Has voided using the urinal 250ml. Denies feeling full. No soa denies pain. Has ambulated in the room. weakness hollie but gait is steady.
[2021-07-09 20:00] VITALS: BP 141/72; PULSE 50; PULSE 57; RESP 26; TEMP 36.8; O2SAT 97
[2021-07-10] VITALS: BP 158/72; PULSE 52; PULSE 60; RESP 24; TEMP 36.3; O2SAT 95
[2021-07-10 04:00] VITALS: BP 141/71; PULSE 58; PULSE 60; RESP 16; TEMP 36.8; O2SAT 95
[2021-07-10 05:05] VITALS: BMI 26.8
[2021-07-10 06:18] LABS: Basophils % 0.9 % (0.1-2.0); Eosinophils # 0.1 K/mm3 (0.0-0.4); Eosinophils % 1.5 % (0.1-12.0); Hematocrit 39.7 % (42.0-52.0); Hemoglobin 12.9 g/dL (14.1-18.0); Lymphocytes # 0.8 K/mm3 (0.7-4.5); Lymphocytes % 15.8 % (10-50); Mean Corpuscular HGB Conc 32.7 g/dL (31.8-35.4); Mean Corpuscular Hemoglobin 30.9 pg (27.0-31.2); Mean Corpuscular Volume 94.8 fl (80-94); Mean Platelet Volume 8.3 fl (7.4-10.4); Monocytes # 0.2 K/mm3 (0.1-1.0); Monocytes % 3.6 % (1.7-9.3); Neutrophils # 3.9 K/mm3 (1.8-7.8); Neutrophils % 78.2 % (37.0-80.0); Platelet Count 176 K/mm3 (142-424); Red Blood Count 4.18 M/mm3 (4.60-6.20)
[2021-07-10 06:56] LABS: Chloride 108 mmol/L (98-107)
[2021-07-10 06:57] LABS: Sodium 136 mmol/L (136-145)
[2021-07-10 07:00] LABS: Blood Urea Nitrogen 13 mg/dl (9-20); Calcium 6.9 mg/dl (8.4-10.2); Carbon Dioxide 24 mmol/L (22.0-30.0); Creatinine Clearance Estimated 91 mL/min (50-200); Estimated Glomerular Filt Rate 96 ml/min (>60); GFR (African American) 117 ML/MIN (>60); Glucose 88 mg/dl (74-100)
--- NOTE | 2021-07-10 07:31 | PC.NURSE ---
Patient had no complaints during shift, but did not sleep. VSS. No c/o pain. sinus to sinus ranjan on monitor. No shortness of breath. Up with sba to bathroom and uses urinal.
[2021-07-10 08:00] VITALS: BP 151/64; PULSE 53; RESP 16; TEMP 37.1; O2SAT 97
--- NOTE | 2021-07-10 08:49 | HMH.DCSUM ---
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 His recent history is somewhat complex, he was diagnosed with COVID-19 pneumonia on June 17, had fairly mild disease-has had Moderna vaccinations, and he and his both had fairly mild cases and he improved but approximately 4 days ago began to become very confused, have the recurrent onset of fever. They went to his family practice group in [place], and were given instructions to take vitamin D and zinc. He did not feel much better and presented to the emergency department here a couple of days ago, and apparently was diagnosed with syncope although there is no ER documentation that I can find in the computer, there is a discharge packet that indicated he was diagnosed with syncope and instructed to drink more fluids. Did not feel much better after this and came back to the emergency department late yesterday. Found to be febrile, chest x-ray showed infiltrate and possible bacterial pneumonia, admitted to hospital for further diagnostic testing. CT of head was done which was nondiagnostic. Labs showed minimal acute kidney injury and inflammatory markers positive but otherwise nondiagnostic. His notes that he has been very confused at night, has been falling at home, and has simply not been himself and has been very lethargic and dazed at home. Hospital Course Hospital Course: Patient was admitted, extensive work-up was undertaken for cause of patient's confusion and mental status. Lumbar puncture revealed no evidence of infection, antigen testing for a variety of viral pathogens was negative and culture was negative. Was found to have a lobar post viral pneumonia, treated with antibiotics and patient improved vis-?-vis fevers. MRI revealed the presence of a subacute stroke and a mild subdural contusion which fits with his time course of confusion at home before admission to [facility] and a fall. Antiplatelet agents were started and patient did well with this. Blood pressure was also controlled throughout his hospital stay. This morning he was feeling much better, much more alert, eating well, has been able to transfer to chair appropriately. His is comfortable with him going home and he wishes to be discharged. Plan number to discharge home with home health services: On my [id number] evaluation with him today I determined that he has significant risk of leaving his home without assistance and qualifies for home health, for PT/OT/home safety/nursing care. He will be placed on clopidogrel for his recent stroke. Appropriate blood pressure monitoring, finishing up antibiotics and I will see him in my office next week to establish care as he is transferring from his group in [place]. Objective Vital signs: Temp Pulse Resp BP Pulse Ox 98.7 F 53 L 16 151/64 H 97 07/10/21 08:00 07/10/21 08:00 07/10/21 08:00 07/10/21 08:00 07/10/21 08:00 no acute distress - *Routine HEENT Exam Head: Present: normocephalic Eye: Present: EOMI, PERRL ENT: Present: mucous membranes moist - *Routine Neck Exam Present: supple - *Routine Respiratory Exam Present: rhonchi - *Routine Cardiovascular Exam Present: RRR - *Routine Abdominal Exam Present: soft, normoactive bowel sounds. Absent: tenderness - *Routine Extremities Exam Absent: cyanosis, clubbing, edema - *Routine Skin Exam Present: warm. Absent: rash - *Routine Neurological Exam Present: alert, oriented X3, CN II-XII intact - Detailed Eye Exam Eyelids: Bilateral normal inspection Results Labs on day of dischar
--- NOTE | 2021-07-10 08:56 | CA_ITS ---
APPROVED REPORT Oracle Database Manager: Dahiana Ryan RVT Laterality: Bilateral Study Quality: Excellent Indications: cva Risk Factors Hypertension: TIA/CVA History Hyperlipidemia Smoking Doppler Spectral Velocity Analysis ECA (R) 103.70/8.60 cm/s ECA (L) 97.30/7.50 cm/s dICA (R) 69.50/21.40 cm/s dICA (L) 97.30/27.80 cm/s Ricky (R) 102.70/24.60 cm/s Ricky (L) 101.60/25.70 cm/s pICA (R) 82.30/22.50 cm/s pICA (L) 85.50/16.00 cm/s dCCA (R) 81.30/10.70 cm/s dCCA (L) 79.10/16.00 cm/s pCCA (R) 93.00/11.80 cm/s pCCA (L) 90.90/19.20 cm/s Vert (R) 46.00/10.70 cm/s Vert (L) 34.20/11.80 cm/s ICA/CCA 1.26 ICA/CCA 1.28 Findings Study suggests 20-49% stenosis of the right internal cartoid artery. Study suggests 20-49% stenosis of the left internal cartoid artery. Antegrade flow seen bilateral vertebral arteries. Conclusion Study suggests 20-49% stenosis of the right internal cartoid artery. Study suggests 20-49% stenosis of the left internal cartoid artery. Antegrade flow seen bilateral vertebral arteries. Electronically signed by : Jeronimo Valladares MD 07/10/2021 15:48:57
--- NOTE | 2021-07-10 10:18 | SW/DCPLANNER ---
RECEIVED REFERRAL FOR HOME HEALTH SERVICES FOR THIS PATIENT THAT IS DISCHARGING HOME TODAY... PATIENT HAS CHOSEN [facility] AT HOME AND SOMEONE WILL BE CONTACTING PATIENT TODAY TO START SERVICES... AT BEDSIDE AT HOSPITAL...
[2021-07-12 13:25] LABS: CAP Mandated Reflex to Culture Not Indicated (.); Cryptococcus Antigen, CSF Negative (Negative)
[2021-07-14 17:05] LABS: Legionella pneumophila Urinary Negative (Negative)
== END 2021-07-10 10:13 | disposition home health service (06) | DRG 64 ==
LOC: ER 21:28 → 2ND 23:53
PROVIDERS: Internal Medicine Adolescent Medicine; Admitting Provider Internal Medicine Adolescent Medicine; Emergency Provider Emergency Medicine; Visit Provider Internal Medicine Adolescent Medicine
DX: I63.9 Cerebral infarction, unspecified; U07.1 COVID-19; J12.9 Viral pneumonia, unspecified; D84.9 Immunodeficiency, unspecified; N17.9 Acute kidney failure, unspecified; I10 Essential (primary) hypertension; Z87.891 Personal history of nicotine dependence; E78.5 Hyperlipidemia, unspecified; R00.1 Bradycardia, unspecified; M06.9 Rheumatoid arthritis, unspecified; Z79.52 Long term (current) use of systemic steroids; E87.6 Hypokalemia; E83.51 Hypocalcemia
CPT/HCPCS: 62270; 36415; 70450; 70551; 71045; 71046; 71275; 72170; 80048; 80053; 80305; 80329; 81001; 82140; 82607; 82746; 82803; 82945; 82962; 83605; 83615; 83735; 84145; 84155; 84443; 84484; 85025; 85651; 86140; 87040; 87070; 87205; 87278; 87899; 89051; 93005; 93306; 93880; 96365; 96375; 97161; 99284; 99285; C9803; J0456; Q9967; U0003; U0005

== ENCOUNTER 2021-08-29 11:00 | Outpatient (RCR) | payer MEDICARE, OTHER, SELFPAY ==
--- NOTE | 2021-07-28 11:50 | HMH.PTOPEV ---
PT Outpatient Evaluation Rehab PT Outpatient Evaluation Start: 07/28/21 11:41 Freq: Status: Active Protocol: Document 07/28/21 11:41 LEOBARDO (Rec: 07/28/21 11:50 LEOBARDO [id number]) Electronically Signed By Luciano Garcia, PT 07/28/21 11:41 Outpatient Therapy Subjective History Subjective History Pt reports generalized weakness and endurance deficits secondary to covid-19 illness and CVA in . Pt reports left side 'maybe' effected greater than right UE /LE with CVA, but 'I just get tired easier now, and when I'm tired I lose my balance'. PMH : OA Chief Complaint Weakness Symptoms Relieved By Rest/Positioning Symptoms Aggravated By Standing,Physical Activity, Walking Prior Functional Limitations Standing,Walking,Stairs, Balance Current Functional Limitations Standing,Walking,Stairs, Balance Lumbopelvic Eval Assistive device Assistive Devices Straight Cane Gait Observation General Gait Pattern Observation Shuffling Step Manual Muscle Test Bilateral Knee Extension Strength Grade 4 Good Knee Flexion Strength Grade 4 Good Hip Flexion Strength Grade 4- Good- Hip Abduction Strength Grade 4- Good- Hip Adduction Strength Grade 4- Good- Hip External Rotation Strength Grade 4- Good- Hip Internal Rotation Strength Grade 4- Good- Hip Extension Strength Grade 4 Good Gluteus Yuriy Strength Grade 4- Good- Extensor Hallucis Longus Strength Grade 5 Normal Ankle Dorsiflexion Strength Grade 5 Normal Gastronemius/Soleus Strength Grade 4 Good Balance Eval Hx of Falls Hx Falls Yes: 1 fall-day of potential CVA 06/18/21 Number in last 6 months 1 Tinetti Sitting Balance Sitting Balance Steady, safe Arising from Chair Ability to Arise Able, w/o using arms Attempts to Arise Arises on 1st attempt Standing Balance Immediate Standing Balance Steady w/o support Standing Balance Steady, wide stance Nudged Response Steady Standing with Eyes Closed Unsteady Turning Step Pattern Turning 360 Degrees Continuous steps Stability Turning 360 Degrees Steady Sitting Down Sitting Down Safe, steady Gait and Step Initiation of Gait No hesitancy Right Foot Step Length Does pass stance foot Right Foot Step Height Does not clear floor Left Foot Step Length
--- NOTE | 2021-08-25 11:04 | HMH.RHREAS ---
Rehab Reassessment Rehab OP Re-assessment Start: 08/25/21 10:49 Freq: Status: Active Protocol: Document 08/25/21 10:57 LEOBARDO (Rec: 08/25/21 11:03 LEOBARDO [id number]) Electronically Signed By Luciano Garcia, PT 08/25/21 10:57 Rehab Re-assessment Subjective Subjective Pt reports improved bilateral LE strength and balance since I eval Objective Objective Notes TINETTI:27 MMT: B HIP ABD 4-4+/5, B HIP FLX 5/5, B HIP EXT 5/5, B HIP IR 4+/5, B HIP ER 4+/5 GAIT: WFL ON LEVEL TERRAIN W/O AD Assessment Progress Assessment Progressing as Expected Assessment Notes PT EXHIBITS SIGNIFICANT IMPROVEMENT IN STRENGTH, GAIT, AND BALANCE Patient goals met STG'S 6/6 LTG'S 6/8 Goals Not Met LTG'S (ENDURANCE BASED GAOLS) Plan Plan Pt to continue w/skilled P.T. to make further improvements in bilateral strength and standing/walking endurance for optimal function Frequency of Therapy 2-3x/wk Duration of therapy 2-4wks Time and Billing Re-Eval Time 15 Re-Eval Billing Units 1 PHYSICIAN CERTIFICATION: I certify the specified therapy services for Bharath Baker are required, authorized, and reviewed every 30 days.
== END 2021-08-29 11:05 | disposition home or self-care (01) ==
LOC: PT 11:00
PROVIDERS: Visit Provider Internal Medicine Adolescent Medicine
DX: R26.89 Other abnormalities of gait and mobility (principal); U09.9 Post COVID-19 condition, unspecified
CPT/HCPCS: 97110; 97112; 97116; 97163; 97164; 97530

== ENCOUNTER → 2022-08-15 11:27 | Outpatient (CLI) | payer MEDICARE, OTHER, SELFPAY ==
[2022-08-15 12:42] LABS: Basophils % 0.5 % (0.1-2.0); Eosinophils # 0.1 K/mm3 (0.0-0.4); Eosinophils % 0.8 % (0.1-12.0); Hemoglobin 15.6 g/dL (14.1-18.0); Lymphocytes # 1.3 K/mm3 (0.7-4.5); Lymphocytes % 17.3 % (10-50); Mean Corpuscular HGB Conc 32.5 g/dL (31.8-35.4); Mean Corpuscular Hemoglobin 31.3 pg (27.0-31.2); Mean Corpuscular Volume 96.3 fl (80-94); Mean Platelet Volume 7.7 fl (7.4-10.4); Monocytes # 0.3 K/mm3 (0.1-1.0); Monocytes % 4.7 % (1.7-9.3); Neutrophils # 5.6 K/mm3 (1.8-7.8); Neutrophils % 76.7 % (37.0-80.0); Platelet Count 174 K/mm3 (142-424); Red Blood Count 4.99 M/mm3 (4.60-6.20); Red Cell Distribution Width 13.9 % (11.5-17.5); White Blood Count 7.3 K/mm3 (4.8-10.8)
[2022-08-15 13:13] LABS: Alanine Aminotransferase 46 U/L (12-78); Albumin/Globulin Ratio 1.9 (1.1-1.8); Alkaline Phosphatase 69 U/L (38-126); Anion Gap 12.6 mEq/L (5-15); Aspartate Amino Transferase 35 U/L (17-59); Bilirubin,Total 0.5 mg/dl (0.2-1.3); Blood Urea Nitrogen 17 mg/dl (9-20); Calcium 9.6 mg/dl (8.4-10.2); Carbon Dioxide 32 mmol/L (22.0-30.0); Chloride 102 mmol/L (98-107); Chol/HDL Ratio 4.4 (1-3.5); Cholesterol 280 mg/dl (140-200); Creatine Kinase 59 U/L (55-170); Estimated Glomerular Filt Rate 55 ml/min (>60); GFR (African American) 66 ML/MIN (>60); Globulin 2.6 g/dL (1.3-3.2); Glucose 86 mg/dl (74-100); HDL Cholesterol 64 mg/dl (40-60); Potassium 5.6 mmoL/L (3.5-5.1); Sodium 141 mmol/L (136-145); Total Protein,Serum 7.6 g/dl (6.3-8.2); Triglycerides 258 mg/dl (30-150); VLDL Cholesterol 52 mg/dL (0-40)
[2022-08-15 13:23] LABS: Direct LDL Cholesterol 171.45 mg/dL (100-129)
[2022-08-15 13:43] LABS: Thyroid Stimulating Hormone 1.03 uIU/mL (0.465-4.68)
[2022-08-15 14:26] LABS: 25-OH Vitamin D, Total 59.5 ng/mL (30-100)
== END ==
PROVIDERS: PCP Internal Medicine Adolescent Medicine; Visit Provider Internal Medicine Adolescent Medicine
DX: M05.79 Rheumatoid arthritis with rheumatoid factor of multiple sites without organ or systems involvement (principal); M79.10 Myalgia, unspecified site; E78.5 Hyperlipidemia, unspecified; Z78.9 Other specified health status
CPT/HCPCS: 36415; 80053; 80061; 82306; 82550; 84443; 85025

== ENCOUNTER → 2022-10-12 09:15 | Outpatient (CLI) | payer MEDICARE, OTHER, SELFPAY ==
--- NOTE | 2022-10-12 09:19 | XR_ITS ---
FINAL REPORT CLINICAL HISTORY: ASSISTED DRUG THERAPY,SPONDYLOSIS W/O MYELOPATHY FINDINGS: Seven views of the lumbar spine were obtained including oblique and flexion and extension views. No priors are available for comparison. There is no acute fracture. There is multilevel degenerative disc disease, most pronounced at L1-2 and L3-4. There is no change in alignment upon flexion and extension maneuvers. No acute paraspinal abnormality is identified. IMPRESSION: Multilevel degenerative disc disease. Reviewed, Interpreted and Dictated by Karli Pickens MD Transcribed by Shani Quezada Authenticated and [facility]
== END ==
PROVIDERS: PCP Internal Medicine Adolescent Medicine; Visit Provider Pain Medicine Interventional Pain Medicine
DX: M47.816 Spondylosis without myelopathy or radiculopathy, lumbar region (principal); M54.16 Radiculopathy, lumbar region; Z79.899 Other long term (current) drug therapy
CPT/HCPCS: 72114

== ENCOUNTER → 2022-12-25 09:02 | Outpatient (CLI) | payer MEDICARE, OTHER, SELFPAY ==
--- NOTE | 2022-12-25 09:05 | US_ITS ---
FINAL REPORT CLINICAL HISTORY: H/O TOBACCO DEPENDENCE FINDINGS: Limited images of the abdominal aorta was obtained. The abdominal aorta measures up to 1.8 cm. There is no evidence of abdominal aortic aneurysm. IMPRESSION: No evidence of abdominal aortic aneurysm. Reviewed, Interpreted and Dictated by Elvin Li III, MD Transcribed by Shani Quezada Authenticated and [facility]
--- NOTE | 2022-12-25 09:06 | XR_ITS ---
FINAL REPORT TECHNIQUE: Bone densitometry calculations of the lumbar spine and left hip were obtained. CLINICAL HISTORY: osteoporosis FINDINGS: Using L1-4, the bone mineral density of the spine is 1.102 g/cm2, corresponding to T-score of 0.1, this is likely falsely elevated secondary to hypertrophic changes. Using the 1/3 radius the bone mineral density is 0.651 g/cm2, corresponding to a T-score of -3.1. NOTE: T-score: Standard deviation compared with peak bone mass of young adult mean. *Following the recommendations of the International Society of Bone Densitometry, classification of hip BMD is based on the lower of two T-scores; total hip or femoral neck. IMPRESSION: Diminished bone mineral density of the 1/3 radius consistent with osteoporosis. Normal bone mineral density of the lumbar spine but this is likely falsely elevated secondary to hypertrophic changes. Reviewed, Interpreted and Dictated by Elvin Li III, MD Transcribed by Shani Quezada Authenticated and [facility]
== END ==
PROVIDERS: PCP Internal Medicine Adolescent Medicine; Visit Provider Internal Medicine Adolescent Medicine
DX: M81.8 Other osteoporosis without current pathological fracture (principal); Z87.891 Personal history of nicotine dependence
CPT/HCPCS: 76705; 77080

== ENCOUNTER 2025-04-15 09:37 | Outpatient (CLI) | payer MEDICARE, OTHER, SELFPAY ==
--- OUTSIDE RECORDS SUMMARY | 2025-04-13 08:30 | XMS_ITS | Encounter Summary ---
Author Organization [facility] Address [address] [place] [address] Care Team Providers Care Dairy Scientist Name Role Phone Jacob Magana MD Primary Care Provider [phone] Reason for Referral * Pain Management (Routine) - Pending Review Specialty Diagnoses / Procedures Referred By Kieran t Referred To Contact Pain Medicine Diagnoses Seropositive rheumatoid arthritis Current use of steroid medication Immunodeficiency due to drug therapy Encounter for therapeutic drug monitoring Primary osteoarthritis involving multiple joints High risk medication use Fatigue, unspecified type Chronic back pain, unspecified back location, unspecified back pain laterality Procedures [place] OFFICE/OUTPATIENT NEW MODERATE MDM 45 MINUTES Johann Schaeffer DO [address] [place] [address] Phone: tel: fax: Jeffrey Urena MD [address] [facility] [address] [place] [address] Phone: tel: fax: Referral ID Status Reason Start Date Expiration Date Visits Requested Visits Authorized [id number] Pending Review Specialty Services Required 04/13/2025 07/13/2026 1 1 Reason for Visit * Reason Comments Osteoarthritis Follow up Rheumatoid Arthritis Follow up Encounter Details Date Type Department Care Team (Latest Contact Info) Description 04/13/2025 8:30 AM EDT Office Visit [facility] RHEUMATOLOGY [address] [facility] [address] [place] [phone] Johann Schaeffer DO [address] [facility] [address] [place] [address] Seropositive rheumatoid arthritis (Primary Dx); Current use of steroid medication; Immunodeficiency due to drug therapy; Encounter for therapeutic drug monitoring; Primary osteoarthritis involving multiple joints; High risk medication use; Fatigue, unspecified type; Chronic back pain, unspecified back location, unspecified back pain laterality Social History Tobacco Use Types Packs/Day Years Used Date Smoking Tobacco: Former Cigarettes 1 15 1 09/03/1982 - 1994 Passive Smoke Exposure: Past Smokeless Tobacco: Never Alcohol Use Standard Drinks/Week Comments No 0 (1 standard drink = 0.6 oz pur e alcohol) PHQ-2 Answer Date Recorded Retired Total Score 0 07/26/2020 Sex and Gender Information Value Date Recorded Sex Assigned at Male 04/06/2025 8:37 AM EDT Legal Sex Male 11:44 AM EDT Gender Identity Not on file Sexual Orientation Not on file documented as of this encounter Last Filed Vital Signs Vital Sign Reading Time Taken Comments Blood Pressure 126/78 04/13/2025 8:40 AM EDT Pulse 70 04/13/2025 8:40 AM EDT Temperature - - Respiratory Rate - - Oxygen Saturation - - Inhaled Oxygen Concentration - - Weight 93.8 kg (206 lb 14.4 oz) 04/13/2025 8:40 AM EDT Height 182.9 cm (6' 0.01 ) 04/13/2025 8:40 AM ED T Body Mass Index 28.05 04/13/2025 8:40 AM EDT documented in this encounter Patient Instructions * Attachments The following attachments cannot be sent through Care Everywhere. * Osteoarthritis (Vincentian) documented in this encounter Progress Notes * Johann Schaeffer DO - 04/13/2025 8:30 AM EDTAssociated Problem(s): Seropositive rheumatoid arthritis * Former patient of Dr. Torres & Dr. Nunez * onset approximately 1989 * Trial MTX, hospitalized with leukemia * Prednisone dose 5 mg to 10 mg daily * Humira stopped due to lack of efficacy * Enbrel he could not afford. * Plaquenil stopped due to lack of efficacy. * NSAIDS stopped due to renal impairment. 1. Continue Rituximab. 2. Rituximab will be given approximately every 6 months. 3. Continue prednisone. 4. Continue Tramadol PRN 5. Follow up in 6 months 6. 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 7. Refill medications today 8. We gave him a handout on osteoarthritis take home and review 9. Check labs 10. Continue/refill Leflunomide * Johann Schaeffer, - 04/13/2025 8:30 AM EDTAssociated Problem(s): Current use of steroid medication Prednisone 5 mg/day for RA/joint pain Ideally he would taper off. Prior attempts to do so have failed. Refill today * Johann Schaeffer, - 04/13/2025 8:30 AM EDTAssociated Problem(s): Immunodeficiency due to drug therapy * IV Rituximab for RA every 6 months. * 1st round given 05/02/2017 and 05/16/2017. * He got his 2nd round in September of 2017 (09/19/2017 & 10/03/2017). * His third round was 04/21 & 05/06/18. * 4th round given 11/04/2018 & 11/18/2018. * 5th round given 07/16/19 and 07/20/19 * 6th doses given 12/29/19 and 01/12/20 * 7th doses given 08/18/20 & 09/08/20 * 8th doses given 03/08/21 and 03/22/21 * 9th doses given 09/21/21 & 10/05/21 (he had a rash after this set of infusions) * 10 th doses given 03/26/22 & 04/09/22 * 11 th round: 10/04/22 & 11/06/22 * 12 th round given 05/2023 1. Hold if the patient develops infection. 2. Avoid live vaccines while on this medication. 3. No recent serious infections 4. No infusion reactions. 5. Also hold this medication perioperatively if the patient is going to have a surgical procedure * Johann Schaeffer DO - 04/13/2025 8:30 AM EDTAssociated Problem(s): Primary osteoarthritis involving multiple joints Tylenol PRN Is ok as directed He avoids oral NSAIDS due to renal problems Continue/refill Tramadol PRN He has seen [facility] in the past He has had back injections in the past. * Johann Schaeffer DO - 04/13/2025 8:30 AM EDTAssociated Problem(s): High risk medication use Tramadol 50 mg PO every 6 hours PRN For pain relief Pain contract updated 04/13/25 Check MICHELLE and Drug screen as required. Drug screen ordered today * Johann Schaeffer DO - 04/13/2025 8:30 AM EDT Images from the original note were not included. Office Follow Up Date: 04/13/2025 Patient Name: Tyron Baker Date of : 1955 Chief Complaint Patient presents with ??? Osteoarthritis Follow up ??? Rheumatoid Arthritis Follow up History of Present Illness: Tyron Baker is a 69 y.o. male who is here today for follow up. He has chronic deformities of his hands and feet. He also has a history of lymphoma. He attributes his lymphoma to taking methotrexate. Historically Humira was ineffective for him. He could not afford Enbrel. 12/07/2016 we stopped NSAIDS (salsalate) because his creatinine was elevated at 1.3. Historically we stopped Arava due to cost.He is not on Plaquenil, this was stopped due to lack of efficacy. He got his 1st round of Rituximab (05/02/2017 and 05/16/2017). He has tolerated this well and thinksit has helped. No recent serious infections. No infusion reactions. He still takes Tramadol PRN for pain relief. He still takes prednisone. No recent injuries. No fever. No recent serious infections. He has chronic/constant pain. Today he rates his pain as 7.5/10 in severity. His back hurts. He has20 minutes/day of morning stiffness. No red or hot joints. No muscle pain or weakness. No swelling today. No neck problems. No rash. No hair loss. No headaches or paresthesias. No lymphadenopathy. He bruises easily. No issues. He has nausea. No chest pian or shortness of breath. He is fatigued. No sicca symptoms. Subjective Review of Systems Constitutional: Positive for fatigue. Eyes: Negative. Respiratory: Negative. Cardiovascular: Negative. Gastrointestinal: Positive for nausea. Endocrine: Positive for polydipsia. Genitourinary: Positive for difficulty urinating. Musculoskeletal: Positive for arthralgias and back pain. Skin: Negative. Positive for bruise. Allergic/Immunologic: Negative. Neurological: Positive for dizziness, memory problem and confusion. Hematological: Bruises/bleeds easily. Psychiatric/Behavioral: The patient is nervous/anxious. All other systems reviewed and are negative. Current Outpatient Medications: ??? alfuzosin (UROXATRAL) 10 MG 24 hr tablet, take 1 tablet by mouth every day, Disp: , Rfl: ??? cimetidine (Tagamet HB) 200 MG tablet, Every 12 (Twelve) Hours., Disp: , Rfl: ??? diphenhydrAMINE (BENADRYL) 25 mg capsule, Take 1 capsule by mouth Every 6 (Six) Hours As Neededfor Itching., Disp: , Rfl: ??? finasteride (PROSCAR) 5 MG tablet, take 1 tablet by mouth every day, Disp: , Rfl: ??? furosemide (LASIX) 20 MG tablet, Take 1 tablet by mouth Daily., Disp: , Rfl: ??? hydroxychloroquine (Plaquenil) 200 MG tablet, Take 1 tablet by mouth 2 (Two) Times a Day., Disp: 60 tablet, Rfl: 5 ??? leflunomide (Arava) 20 MG tablet, Take 1 tablet by mouth Daily., Disp: 30 tablet, Rfl: 5 ??? lisinopril (PRINIVIL,ZESTRIL) 20 MG tablet, Take 1 tablet by mouth Daily., Disp: , Rfl: ??? Multiple Vitamin (MULTI VITAMIN MENS PO), Take 1 tablet by mouth Daily. Cut back on vitamin, Disp: , Rfl: ??? pantoprazole (PROTONIX) 40 MG EC tablet, Take 1 tablet by mouth 2 (Two) Times a Day., Disp: 180tablet, Rfl: 3 ??? predniSONE (DELTASONE) 5 MG tablet, Take 1 tablet by mouth Daily., Disp: 90 tablet, Rfl: 1 ??? RiTUXimab (RITUXAN) 10 MG/ML solution injection, Infuse 1 mL into a venous catheter Every 6 (Six) Months., Disp: , Rfl: ??? Sod Picosulfate-Mag Ox-Cit Acd (Clenpiq) 10-3.5-12 MG-GM -GM/160ML solution, Take 350 mL by mouth Take As Directed., Disp: 350 mL, Rfl: 0 ??? traMADol (ULTRAM) 50 MG tablet, Take 1 tablet by mouth Every 6 (Six) Hours As Needed for Moderate Pain., Disp: 360 tablet, Rfl: 1 Allergies Allergen Reactions ??? Amlodipine Dizziness ??? Lisinopril Diarrhea ??? Codeine Nausea Only I have reviewed and updated the patient's chief complaint, history of present illness, review of systems, past medical history, surgical history, family history, social history, medications and allergy list as appropriate. Objective Vitals: 04/13/25 0840 BP: 126/78 BP Location: Right arm Patient Position: Sitting Cuff Size: Adult Pulse: 70 Weight: 93.8 kg (206 lb 14.4 oz) Height: 182.9 cm (72.01 ) PainSc: 8 Body mass index is 28.05 kg/m??. Physical Exam General: Well appearing 69 year old male, not in distress. Normal gait. Skin: No rash. No subcutaneous nodules. No alopecia Head/Neck: NCAT, neck is supple, no salivary gland enlargement Eyes: Conjunctiva clear, no photophobia. He wears glasses ENMT: Hearing intact, no oral or nasal ulcers Lung exam: Clear bilaterally, no wheezing/rales/rhonchi CV: Regular rate and rhythm. No murmur Peripheral vascular: No edema, no cyanosis Psych: Normal mood and affect. The patient is oriented to person, place, and time MSK: His hands/fingers are deformed. No acute swelling. He has ulnar deviation of the fingers of both hands. None of the joints are warm to touch. He has good range of motion in his elbows, knees, hips, and ankles. He has hallux valgus deformities in both feet. Lymph: No cervical lymphadenopathy Procedures Assessment / Plan Assessment & Plan Seropositive rheumatoid arthritis * Former patient of Dr. Torres & Dr. Nunez * onset approximately 1989 * Trial MTX, hospitalized with leukemia * Prednisone dose 5 mg to 10 mg daily * Humira stopped due to lack of efficacy * Enbrel he could not afford. * Plaquenil stopped due to lack of efficacy. * NSAIDS stopped due to renal impairment. 1. Continue Rituximab. 2. Rituximab will be given approximately every 6 months. 3. Continue prednisone. 4. Continue Tramadol PRN 5. Follow up in 6 months 6. 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 7. Refill medications today 8. We gave him a handout on osteoarthritis take home and review 9. Check labs 10. Continue/refill Leflunomide Current use of steroid medication Prednisone 5 mg/day for RA/joint pain Ideally he would taper off. Prior attempts to do so have failed. Refill today Immunodeficiency due to drug therapy * IV Rituximab for RA every 6 months. * 1st round given 05/02/2017 and 05/16/2017. * He got his 2nd round in September of 2017 (09/19/2017 & 10/03/2017). * His third round was 04/21 & 05/06/18. * 4th round given 11/04/2018 & 11/18/2018. * 5th round given 07/16/19 and 07/20/19 * 6th doses given 12/29/19 and 01/12/20 * 7th doses given 08/18/20 & 09/08/20 * 8th doses given 03/08/21 and 03/22/21 * 9th doses given 09/21/21 & 10/05/21 (he had a rash after this set of infusions) * 10 th doses given 03/26/22 & 04/09/22 * 11 th round: 10/04/22 & 11/06/22 * 12 th round given 05/2023 1. Hold if the patient develops infection. 2. Avoid live vaccines while on this medication. 3. No recent serious infections 4. No infusion reactions. 5. Also hold this medication perioperatively if the patient is going to have a surgical procedure Encounter for therapeutic drug monitoring Leflunomide 20 mg PO once/day for RA 1. CBC and CMP every 8-12 weeks to monitor for medication toxicity. 2. No recent serious infections. 3. Refill today Primary osteoarthritis involving multiple joints Tylenol PRN Is ok as directed He avoids oral NSAIDS due to renal problems Continue/refill Tramadol PRN He has seen [facility] in the past He has had back injections in the past. High risk medication use Tramadol 50 mg PO every 6 hours PRN For pain relief Pain contract updated 04/13/25 Check MICHELLE and Drug screen as required. Drug screen ordered today Fatigue, unspecified type Update TB and hepatitis tests. Chronic back pain, unspecified back location, unspecified back pain laterality In the past he has seen [facility] He has had back injections He would like to go back and see them again. We will refer as requested. Orders Placed This Encounter Procedures ??? Urine Drug Screen - Urine, Clean Catch ??? QuantiFERON-TB Gold Plus (Li-Hep) ??? Hepatitis Panel, Acute ??? CBC Auto Differential ??? Comprehensive Metabolic Panel ??? C-reactive Protein ??? Sedimentation Rate ??? Ambulatory Referral to [facility] New Medications Ordered This Visit Medications ??? leflunomide (Arava) 20 MG tablet Sig: Take 1 tablet by mouth Daily. Dispense: 30 tablet Refill: 5 ??? hydroxychloroquine (Plaquenil) 200 MG tablet Sig: Take 1 tablet by mouth 2 (Two) Times a Day. Dispense: 60 tablet Refill: 5 ??? predniSONE (DELTASONE) 5 MG tablet Sig: Take 1 tablet by mouth Daily. Dispense: 90 tablet Refill: 1 ??? traMADol (ULTRAM) 50 MG tablet Sig: Take 1 tablet by mouth Every 6 (Six) Hours As Needed for Moderate Pain. Dispense: 360 tablet Refill: 1 Follow Up: Return in about 4 months (around 08/13/2025). Johann Schaeffer DO [facility] [place] documented in this encounter Plan of Treatment Upcoming Encounters Date Type Department Care Team (Late st Contact Info) Description 07/20/2025 3:15 PM EST Office Visit [facility] RHEUMATOLOGY [address] [facility] [address] [place] [id number] Gabo Da Silva APRN [address] [facility] [address] [place] [address] 08/10/2025 8:30 AM EST Appointment [facility] OUTPATIENT ONCOLOGY [place] [address] [facility] [address] [place] [address] Scheduled Orders Name Type Priority Associated Diagnoses Orde r Schedule Urine Drug Screen - Urine, Clean Catch Lab Routine Seropositive rheumatoid arthritis Current use of steroid medication 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 High risk medication use Fatigue, unspecified type Ordered: 04/13/2025 QuantiFERON-TB Gold Plus (Li-Hep) Lab Routine Seropositive rheumatoid arthritis Current use of steroid medication 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 High risk medication use Fatigue, unspecified type Ordered: 04/13/2025 Hepatitis Panel, Acute Lab Routine Seropositive rheumatoid arthritis Current use of steroid medication 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 High risk medication use Fatigue, unspecified type Ordered: 04/13/2025 CBC Auto Differential Lab Routine Seropositive rheumatoid arthritis Current use of steroid medication 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 High risk medication use Fatigue, unspecified type Ordered: 04/13/2025 Comprehensive Metabolic Panel Lab Routine Seropositive rheumatoid arthritis Current use of steroid medication 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 High risk medication use Fatigue, unspecified type Ordered: 04/13/2025 C-reactive Protein Lab Routine Seropositive rheumatoid arthritis Current use of steroid medication 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 High risk medication use Fatigue, unspecified type Ordered: 04/13/2025 Sedimentation Rate Lab Routine Seropositive rheumatoid arthritis Current use of steroid medication 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 High risk medication use Fatigue, unspecified type Ordered: 04/13/2025 documented as of this encounter Visit Diagnoses Diagnosis Seropositive rheumatoid arthritis- Primary Current use of steroid medication Immunodeficiency due to drug therapy Encounter for therapeutic drug monitoring Primary osteoarthritis involving multiple joints High risk medication use Fatigue, unspecified type Chronic back pain, unspecified back location, unspecified back pain laterality documented in this encounter Care Teams Dairy Scientist Relationship Specialty Start Date End Date Jacob Magana MD [address] [facility] [address] [facility] [id number] PCP - General Adolescent Medicine 08/10/22 documented as of this encounter
--- OUTSIDE RECORDS SUMMARY | 2025-04-14 04:30 | XMS_ITS ---
Author Organization [facility] Address [address] [place] [address] Care Team Providers Care Scanning Tech Name Role Phone Jeffrey Urena II Unavailable Laury DO -Capacity Manager Johann SHANKAR Unavailable Unavailable Allergies Allergen (clinical drug ingredient) Drug/Non Drug Allergy documented on EMR Reaction Allergy Type Onset Date Status codeine codeine Unknown Drug Allergy Active Reason For Referral Reason Order Xray Lumbar an d Pelvic Diagnosis 1 Spondylosis without myelopathy or radiculopathy, lumbar region (M47.816) Diagnosis 2 Sacroiliitis, not el sewhere classified (M46.1) Referral Organization [facility] Referring Provider First Name Jeffrey Referring Provider Last Name Ayanna Referring Provider Speciality Pain Manag ement Referred Provider Specialty Radiology Referral Priority Routine REASON FOR VISIT Re-Est Pt/Johann Schaeffer DO/RA, OA, & Chronic LBP, Low back pain Medications Medication SIG (Take, Route, Fr equency, Duration) Notes Start Date End Date Status Rituxan 10 mg/mL as directed intraven ously once a week; Duration: 4 dose(s) Active Multiple Vitamins 1 qd Ac tive lisinopril 20 mg 1 tab(s) orally once a day; Duration: 30 day(s) Active predniSONE 5 mg 1 tab(s) orally once a day; Duration: 30 day(s) Active traMADol 50 mg 1 tab(s) orally every 6 hours Active Tagamet HB 200 mg 1 tab(s) orally 2 ti mes a day; Duration: 30 day(s) Active Vital Signs Blood pressure systolic 134 mm Hg 04/14/20 25 Blood pressure diastolic 81 mm Hg 025 Heart Rate 71 /min 04/14/2025 Height 72 in 04/14/2025 Weight 212 lbs 04/14/2025 BMI 28.75 kg/m2 04/14/2025 Encounters Encounter Location Date Provider Diagnosis [facility] [address] [place] [address] 04/14/2025 Jeffrey Urena 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 No medications given 2. S/P #2 LT SIJI 3. Order Xray Lumbar and Pelvic 4. PRN Follow up Mr. Baker returns today for a office visit. He was last seen in November 2022. At that time we did a SI joint injection and he states that he benefited from that for greater than 2 years. He reports that the SI joint pain has returned since about February and he is interested in having that repeated as his tolerance of daily activities has suffered somewhat since the return of the pain. We will go ahead and order x-ray of the lumbar spine as well as pelvis to evaluate for any changes. His examination is consistent with left-sided SI joint pain as he has a positive Domingo's test on the left as well as pain with distraction maneuvers of the pelvis and tenderness to palpation over the left-sided SI joint. We will go ahead and get him scheduled for the repeat left-sided SI joint injection. 04/14/2025 Spondylosis without myelopathy or radiculopathy, lumbar region (ICD-10 - M47.816) Mr. Baker returns today for a office visit. He was last seen in November 2022. At that time we did a SI joint injection and he states that he benefited from that for greater than 2 years. He reports that the SI joint pain has returned since about February and he is interested in having that repeated as his tolerance of daily activities has suffered somewhat since the return of the pain. We will go ahead and order x-ray of the lumbar spine as well as pelvis to evaluate for any changes. His examination is consistent with left-sided SI joint pain as he has a positive Domingo's test on the left as well as pain with distraction maneuvers of the pelvis and tenderness to palpation over the left-sided SI joint. We will go ahead and get him scheduled for the repeat left-sided SI joint injection. 04/14/2025 Radiculopathy, lumbar region (ICD-10 - M54.16) Mr. Baker returns today for a office visit. He was last seen in November 2022. At that time we did a SI joint injection and he states that he benefited from that for greater than 2 years. He reports that the SI joint pain has returned since about February and he is interested in having that repeated as his tolerance of daily activities has suffered somewhat since the return of the pain. We will go ahead and order x-ray of the lumbar spine as well as pelvis to evaluate for any changes. His examination is consistent with left-sided SI joint pain as he has a positive Domingo's test on the left as well as pain with distraction maneuvers of the pelvis and tenderness to palpation over the left-sided SI joint. We will go ahead and get him scheduled for the repeat left-sided SI joint injection. 04/14/2025 Sacroiliitis, not elsewhere classified (ICD-10 - M46.1) Mr. Baker returns today for a office visit. He was last seen in November 2022. At that time we did a SI joint injection and he states that he benefited from that for greater than 2 years. He reports that the SI joint pain has returned since about February and he is interested in having that repeated as his tolerance of daily activities has suffered somewhat since the return of the pain. We will go ahead and order x-ray of the lumbar spine as well as pelvis to evaluate for any changes. His examination is consistent with left-sided SI joint pain as he has a positive Domingo's test on the left as well as pain with distraction maneuvers of the pelvis and tenderness to palpation over the left-sided SI joint. We will go ahead and get him scheduled for the repeat left-sided SI joint injection. Plan Of Treatment Treatment Notes Assessment Notes Other shelter (current) drug therapy 04/14/2025 1. No medications given 2. S/P #2 LT SIJI 3. Order Xray Lumbar and Pelvic 4. PRN Follow up Pending Test Test Name Order Date Urine Test ANALYZER 04/14/2025 Referrals Referral Date Details 04/14/2025 04/14/2025, Order Xr ay Lumbar and Pelvic Next Appt Details Follow Up: prn, Reason: Provider Name:Jeffrey samuel, 04/29/2025 10:15:00 AM, [address], [address], [address], Progress Notes * Tyron BAKER LDOB: [birth year] (69 yo M)Acc No.[id number]:04/14/2025 FollowUP Patient: Tyron GALLEGOS Provider: Rubina Urena II, M.D. :1955 A ge:69 Y S ex:Male Date:04/14/2025 Address:[address] Subjective: * Chief Complaints: * 1 . Re-Est Pt/Johann [place], DO/RA, OA, & Chronic LBP. 2. Low back pain. * HPI: T ODAYS PAIN EVALUATION: MEDICATION FOLLOW UP: Mary montalvo is not currently prescribed anything for their pain symptoms . C URRENT PAIN SYMPTOMS: L ocation of Worst Pain: L ow Back, P ain Frequency: f luctuating, P ain Description: s tabbing, A verage Pain Score VAS: 3 , P ain Exacerbation: Standing, P ain Alleviation: s itting, A DL/Quality of Life Interference: Picking something up. P AIN MANAGEMENT TREATMENT HISTORY: IMAGING HISTORY: N o imaging available at this time . P REVIOUS INJECTION\PROCEDURE HISTORY:? 0 11/13/2022 - #1 SIJI RT - 90% relief ongoing as of 11/28/2022 0 12/25/2022 #1 LT SIJI 9 0% relief for 2 years . P HYSICAL/AQUA THERAPY/DME/OTHER HISTORY: 2 023, Patient continues a prescribed home exercise program 3-5 times per week . P ERTINENT SURGICAL EVALUATIONS/SPECIALIST CONSULTS N o prior surgical consult . P REVIOUS PAIN CLINIC CARE: D christy . S UMRASHAWNY OF INITIAL EVALUATION: 0 09/14/2022 - Pain began in Mar without incident. The pain is located in the lower back radiating into right upper hip. Patient currently prescribed Tramadol 50mg, by Dr. Johann Schaeffer. Patient Reports 75% relief for 12 hours. I OV: Mr. Baker is a 66-year-old who presents today on referral from Dr. Schaeffer for continuing management of polyarticular joint pain and low back pain. He has been diagnosed with rheumatoid arthritis first approximately 35 years ago and states he is put up with that on and off over the years. He recently in March 2022 had the onset of low back pain radiating into the right hip and thigh and was referred for further evaluation. Medically he reports that prolonged sitting, prolonged standing and standing bent slightly flexed exacerbate the pain. On physical examination he does have tenderness in the lumbar paraspinous muscles and over the right SI joint. Distraction maneuvers of the pelvis did provoke pain on the right. Negative straight leg raise test. Pulses and reflexes are intact. T he clinical picture is consistent with facet arthropathy or sacroiliac joint dysfunction. We will send him for x-rays of the lumbar spine and pelvis. Be that he could benefit from lumbar medial branch block versus right SI joint injection, we will await the diagnostics prior to making recommendations. M edication alves he states he does benefit from tramadol 50 mg 1 p.o. twice daily as needed. He takes this medication sporadically and relies mostly on it during flareups. He states a prescription of 45 tablets will oftentimes lasting for 2 months. Does not need any of this medication currently. Michelle and UDS were reviewed. Opioid risk assessment is low. C OMPLIANCE: RISK ASSESSMENT AND STRATIFICATION: R ISK GROUP: LOW RISK . U RINE DRUG TESTIN 09/14/2022 Screen Expected Definitive Expected 0 10/31/2022 Screen Expected 0 11/27/2022 No UDS collected 0 04/09/2025 No UDS collected . M ONITORING: M orphine Equivalent (MME): 0 K ASPER reviewed today and appropriate . T ESTING/RISK ASSESSMENTS O RT Score/Result: 0. * ROS: G ENERAL: Fever D enies. H EENT: Sore throat D enies. C ARDIOVASCULAR: Positive for d enies cardiovascular symptoms. ? R ESPIRATORY: Positive for d enies respiratory issues. G ASTROINTESTINAL: Positive for d enies abdominal issues. G ENITOURINARY: Positive for d enies genitourinary issues. M USCULOSKELETAL: Positive for j oint pain. swelling. stiffness. low back pain. N EUROLOGICAL: Positive for d enies neurological issues. P SYCHIATRIC: Positive for d enies psychological issues. E NDOCRINE: Positive for d enies endocrine issues. * Medical History: L arge granular lymphocytic, Leukemia, Pancytopenia, Renal Insuffciency, Rheumatoid Arthritis. * Surgical History: L eft lung surgery for cryptococcal pneumonia , Cholecystectomy . * Hospitalization/Major Diagno stic Procedure: D enies Past Hospitalization. * Family History: N on-Contributory. Denies Family History of Substance Abuse. * Social History: S moking: No C igarettes Former smoker. A lcohol: No. * Medications: T aking Rituxan 10 mg/mL solution as directed intravenously once a week , Taking predniSONE 5 mg tablet 1 tab(s) orally once a day , Taking lisinopril 20 mg tablet 1 tab(s) orally once a day , Taking traMADol 50 mg tablet 1 tab(s) orally every 6 hours , Taking Tagamet HB 200 mg tablet 1 tab(s) orally 2 times a day , Taking Multiple Vitamins 1 qd , Medication List reviewed and reconciled with the patient * Allergies: C odeine. Objective: * Vitals: B P: 134/81, HR: 71, Pain VAS (0-10): 5, Ht: 72, Wt: 212, BMI:28.75Index. * Examination: G eneral Examination: Nurse/Spray Maker: Kelly Freeman-Chely Carmen 04/14/2025 08:39:56 AM EDT >. General Appearance: w ell-nourished individual in no acute distress. The patient is alert and oriented and cooperative for evaluation. HEENT: unremarkable. Neck, Thyroid : supple. Heart: regular rate. Neurologic Exam: P atient ambulates with an antalgic gait, pitched forward. Skin normal, no rash. Extremities: no clubbing, no edema. ? L umbar Spine/Lower Back: Palpation: S i joint tenderness bilaterally Left greater than right. Inspection: Spinal alignment no abnormal curvature noted.? Gait: antalgic gait. Reflexes: bilaterally symmetrical, babinski negative.? Straight leg raising test: negative bilaterally. Sensory exam: s ensation intact to light touch throughout bilateral lower extremities, no edema or discoloration noted. Motor system: m otor strength 5/5 in all muscle groups bilaterally. Range of motion: R OM moderately limited, moderate pain induced. Hyperextension - Pain with Facet loading. able to stand on heels and toes with assistance Flexion: 45 degrees, with pain Extension: 20 degrees, with pain. Patricks test Positive bilaterally. Sacroiliac Joint tender to palpation across SI joint with a positive Regi, positive thigh thrust, and positive SI Compression noted bilaterally. ? Assessment: * Assessment: 1. 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 S pondylosis without myelopathy or radiculopathy, lumbar region - M47.816 3 . R adiculopathy, lumbar region - M54.16 4 . S acroiliitis, not elsewhere classified - M46.1? Mr. Baker returns today for a office visit. He was last seen in November 2022. At that time we did a SI joint injection and he states that he benefited from that for greater than 2 years. He reports that the SI joint pain has returned since about February and he is interested in having that repeated as his tolerance of daily activities has suffered somewhat since the return of the pain. We will go ahead and order x-ray of the lumbar spine as well as pelvis to evaluate for any changes. His examination is consistent with left-sided SI joint pain as he has a positive Domingo's test on the left as well as pain with distraction maneuvers of the pelvis and tenderness to palpation over the left-sided SI joint. We will go ahead and get him scheduled for the repeat left-sided SI joint injection. Plan: * Treatment: 2. S pondylosis without myelopathy or radiculopathy, lumbar region Referral To:Radiology Reason:Order Xray Lumbar and Pelvic 3. S acroiliitis, not elsewhere classified Referral To:Radiology Reason:Order Xray Lumbar and Pelvic * Follow Up: p rn * * Electronic signature of Cirilo Urena II, M.D. on 04/15/2025 at 08:42 AM CDT Sign off status: Pending * Provider: Rubina Urena II, M.D. Date: Generated for Veronika ansari/Kaden/Waylon on: 08:42 AM CDT History and Physical Notes * HPI (History of Present Illness) Category Sub-Category Detail Notes Category Not es PAIN MANAGEMENT TREATMENT HISTORY SUMMARY OF INITIAL EVALUATION: 09/14/2022 - Pain began in Mar without incident. The pain is located in the lower back radiating into right upper hip. Patient currently prescribed Tramadol 50mg, by Dr. Johann Schaeffer. Patient Reports 75% relief for 12 hours. IOV: Mr. Baker is a 66-year-old who presents today on referral from Dr. Schaeffer for continuing management of polyarticular joint pain and low back pain. He has been diagnosed with rheumatoid arthritis first approximately 35 years ago and states he is put up with that on and off over the years. He recently in March 2022 had the onset of low back pain radiating into the right hip and thigh and was referred for further evaluation. Medically he reports that prolonged sitting, prolonged standing and standing bent slightly flexed exacerbate the pain. On physical examination he does have tenderness in the lumbar paraspinous muscles and over the right SI joint. Distraction maneuvers of the pelvis did provoke pain on the right. Negative straight leg raise test. Pulses and reflexes are intact. The clinical picture is consistent with facet arthropathy or sacroiliac joint dysfunction. We will send him for x-rays of the lumbar spine and pelvis. Be that he could benefit from lumbar medial branch block versus right SI joint injection, we will await the diagnostics prior to making recommendations. Medication alves he states he does benefit from tramadol 50 mg 1 p.o. twice daily as needed. He takes this medication sporadically and relies mostly on it during flareups. He states a prescription of 45 tablets will oftentimes lasting for 2 months. Does not need any of this medication currently. Michelle and UDS were reviewed. Opioid risk assessment is low IMAGING HISTORY: No imaging available at this time PHYSICAL/AQUA THERAPY/DME/OTHER HISTORY: 2022, Patient continues a prescribed home exercise program 3-5 times per week PERTINENT SURGICAL EVALUATIO NS/SPECIALIST CONSULTS No prior surgical consult PREVIOUS INJECTION\PROCEDURE HISTORY: - #1 SIJI RT - 90% relief ongoing as of 11/28/2022 12/25/2022 #1 LT SIJI 90% relief for 2 years PREVIOUS PAIN CLINIC CARE: Denies COMPLIANCE RISK ASSESSMENT AND STRATIFICATI ON: RISK GROUP: LOW RISK URINE DRUG TESTIN09/14/2022 Screen Ex pected Definitive Expected 10/31/2022 Screen Expected 11/27/2022 No UDS collected 04/09/2025 No UDS collected MONITORING: Morphine Equivalent (MME): 0 MICHELLE reviewed today and appropriate TESTING/RISK ASSESSMENTS ORT Score/Result: 0 TODAYS PAIN EVALUATION MEDICATION FOLLOW UP: Pat ient is not currently prescribed anything for their pain symptoms CURRENT PAIN SYMPTOMS: Location of Worst Pain:: Low Back Pain Frequency:: fluctuating Pain Description:: stabbing Average Pain Score VAS:: 3 Pain Exacerbation:: Standing Pain Alleviation:: sitting ADL/Quality of Life Interference:: Picki ng something up Examination Category Sub-Category Detail Notes Category Not es General Examination HEENT: unremarkable Neck, Thyroid : supple Heart: regular rate Extremities: no clubbing, no jamey a General Appearance: well-nourished indiv idual in no acute distress. The patient is alert and oriented and cooperative for evaluation Skin normal, no rash Neurologic Exam: Patient ambulates wi th an antalgic gait, pitched forward Nurse/Spray Maker: Maria R Martinez (MA-Lex) 04/14/2025 08:39:56 AM EDT > Lumbar Spine/Lower Back Straight leg raising test: neg ative bilaterally Motor system: motor strength 5/5 i n all muscle groups bilaterally Sensory exam: sensation intact to light touch throughout bilateral lower extremities, no edema or discoloration noted Reflexes: bilaterally symmetri valencia, babinski negative Gait: antalgic gait Range of motion: ROM moderately limited, moderate pain induced. Hyperextension - Pain with Facet loading. able to stand on heels and toes with assistance Flexion: 45 degrees, with pain Extension: 20 degrees, with pain Inspection: Spinal alignment no abnormal curvature noted Palpation: Si joint tenderness bilaterally Left greater than right Patricks test Positive bilaterally Sacroiliac Joint tender to palpation across SI joint with a positive Regi, positive thigh thrust, and positive SI Compression noted bilaterally Consultation Request Notes Referral Date Referring Provider Referred Provider Not es 04/14/2025 Jeffrey Urena , Order Xray Lumbar and Pelvic
--- OUTSIDE RECORDS SUMMARY | 2025-04-15 09:42 | XMS_ITS | Encounter Summary ---
[facility] Address [address] [place] [address] Care Team Providers Care Childcare Attendant Name Role Phone Jacob Magana MD Primary Care Provider [phone] Encounter Details Date Type Department Care Team (Late st Contact Info) Description 10/12/2011 Conversion Encounter [facility] HISTORICAL CONV [address] [place] [address] Interface, See Report Social History Tobacco Use Types Packs/Day Years Used Date Smoking Tobacco: Never Assessed Sex and Gender Information Value Date Recorded Sex Assigned at Male 04/06/2025 8:37 AM EDT Legal Sex Male 11:44 AM EDT Gender Identity Not on file Sexual Orientation Not on file documented as of this encounter H&P Notes * Interface, See Report - 10/12/2011 9:32 AM EDT Shan Gagnon M.D. ' Anthony Barkley M.D. ' Carter Monzon M.D. ' JOVAN Koo M.D. ' Tess Bragg M.D. ' Yris Wilkins APRN [facility], [address] [place] [address] [facility] OFFICE NOTE TYRON BAKER : 1955 DATE OF VISIT: 10/12/2011 PROBLEM LIST: 1. T-cell large cell lymphoma. 2. Neutropenic fever. 3. Hoarseness. 4. Elevated liver enzymes. HISTORY OF PRESENT ILLNESS: Mr. Baker returns today for follow-up after a recent hospitalization where he was admitted on 09/23/2011 for neutropenic fever. He was discharged on 10/05/2011. During Mr. Hernandez's hospitalization upon he was diagnosed with T-cell, large cell lymphoma and had begun therapy with Cytoxan and prednisone. He is also currently being followed by Dr. Colón of Infectious Disease. He had been receiving IV antibiotics up until a few days ago and these were discontinued due to elevated liver enzymes. Mr. Baker states that he is feeling better every day. He states that he is increasing increasingly getting stronger. He reports his appetite is good. He is gaining weight slowly. He denies any fever or chills. He has been staying home and avoiding large crowds due to his neutropenia. He is tolerating his low dose Cytoxan without any adverse effects. Mr. Baker and his expressed some concerns over noticing that his voice has become extremely soft and worse. He denies any pain or difficulty with swallowing. REVIEW OF SYSTEMS: Other than mentioned above, ten-point review of systems is negative. SOCIAL HISTORY: Unchanged from 09/23/2011. TYRON BAKER : 1955 DATE OF VISIT: 10/12/2011 PHYSICAL EXAMINATION: GENERAL: Middle-age gentleman who is in no obvious distress. He does appear frail. He is pleasant and has a normal affect. VITAL SIGNS: His weight today is 169 pounds, which is 19 pounds less than on previous visit of 09/10. Vitals within normal limits and he is afebrile. HEENT: Normocephalic. Oral mucosa is moist. There are two, white papular patches noted on his posterior oropharynx with no erythema and no exudate. NECK: Supple with no lymphadenopathy. LUNGS: Clear to auscultation bilaterally. HEART: Regular rate and rhythm. ABDOMEN: Soft and nontender with no masses noted. EXTREMITIES: Without edema. NEUROLOGIC: Grossly nonfocal. DATA: 10/08/2011 CMP with the alkaline phosphatase of 578, ALT 135, AST 172. CBC: WBC of 0.7, hemoglobin 9.9, platelets 207,000. 10/11/2011 CMP with alkaline phosphatase 386, ALT 68, AST 32. CBC: WBC of 0.8, hemoglobin 11.1, platelets 285,000. ASSESSMENT AND PLAN: 1. T-cell large cell lymphoma. We will have Mr. Baker continue on with his Cytoxan 50 mg p.o. daily along with prednisone as instructed. We will have him return to see us again in two weeks for close follow-up. We will obtain a CBC with diff weekly. He does understand to call if he notices any fevers or any other concerns. 2. Hoarseness. We will monitor this for any change when we see him back in the office. We will consider possible ENT evaluation but it appears benign at this time. TYRON BAKER : 1955 DATE OF VISIT: 10/12/2011 ASSESSMENT AND PLAN: (Continued) 3. Elevated liver enzymes were felt to be due to Rocephin he was receiving. This has been discontinued by Dr. Colón as noted in CMP from the , has essentially resolved. We will check a CMP again in one week. Yris Wilkins APRN* SE/rxdrs/rxdrs/rxmdr DAD: 10/18/2011 16:22:08 ABILIO: 10/19/2011 01:38:04 Amended: Doc. ID [id number] Agusto Colón M.D.* Jesus Nunez Jr., M.D.* Mitul Weinberg M.D.* Wesley Smith M.D.* Page 2 of 3 Page 1 of 3 Authenticated and Edited by YRIS WILKINS APRN On 10/25/11 4:10:12 PM documented in this encounter Plan of Treatment Upcoming Encounters Date Type Department Care Team (Late st Contact Info) Description 07/20/2025 3:15 PM EST Office Visit [facility] RHEUM[facility]OLOGY [address] [facility] [address] [place] [phone] Gabo Da Silva APRN [address] [facility] [address] [place] [address] 08/10/2025 8:30 AM EST Appointment [facility] OUTPATIENT ONCOLOGY [place] [address] [facility] [address] [place] [phone] documented as of this encounter Visit Diagnoses Not on filedocumented in this encounter Additional Health Concerns Infection Onset Date Last Indicated Resolved Time COVID Screen (preop/placement) 01/31/2022 01/31/2022 09/05/2023 12:11 PM EST documented as of this encounter Care Teams Childcare Attendant Relationship Specialty Start Date End Date Jacob Magana MD [address] [facility] [address] [place] [address] PCP - General Adolescent Medicine 08/10/22 documented as of this encounter
--- OUTSIDE RECORDS SUMMARY | 2025-04-15 09:42 | XMS_ITS | Encounter Summary ---
[facility] Address [address] [place] [address] Care Team Providers Care Marketing Technology Specialist Name Role Phone Jacob Magana MD Primary Care Provider [phone] Encounter Details Date Type Department Care Team (Late st Contact Info) Description 09/10/2011 Conversion Encounter [facility] HISTORICAL CONV [address] [place] [address] Interface, See Report Social History Tobacco Use Types Packs/Day Years Used Date Smoking Tobacco: Never Assessed Sex and Gender Information Value Date Recorded Sex Assigned at Male 04/06/2025 8:37 AM EDT Legal Sex Male 11:44 AM EDT Gender Identity Not on file Sexual Orientation Not on file documented as of this encounter H&P Notes * Interface, See Report - 09/10/2011 3:13 PM EST Shan Gagnon M.D. ' Anthony Barkley M.D. ' Robert Meeks M.D. ' JOVAN Koo M.D. ' Tess Bragg M.D. ' Whitley Wilkins APRN [facility] [facility], [address] [place] [address] [employer] [facility] OFFICE NOTE PEYMAN BAKER : 1955 DATE OF VISIT: 09/10/2011 PROBLEM LIST: 1. Pancytopenia. a. Iron deficiency anemia (ferritin in the 90s with iron of 20 and a normal total iron binding capacity and absent iron stores on bone marrow biopsy with negative colonoscopy within the last two years he says). b. 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 i. His bone marrow showed absent iron stores and dysplastic changes, but normal cytogenetics. This could be refractory anemia or could be mimicked by prior methotrexate toxicity or it could be B12 or folate deficiency. c. Anemia of renal disease (creatinine of 1.5, which was 1.0 in June). d. 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 SUBJECTIVELY: Peyman's joints are really getting the best of him off of his immunosuppressive therapy and that is his main complaint. He has also had some oral sores that he has treated with Peridex. He also thinks there might be a blister in the back of his throat. REVIEW OF SYSTEMS: Ten-point review of systems positive for the severe joint pains, but otherwise is negative on a ten-point review of systems. SOCIAL HISTORY: Unchanged from 08/28/2011. PEYMAN BAKER : 1955 DATE OF VISIT: 09/10/2011 PHYSICAL EXAMINATION: VITAL SIGNS: Reveals his vital signs to be normal. GENERAL: Extremities reveal the very marked MCP and PIP joints abnormalities of his rheumatoid arthritis. LUNGS: Clear. HEART: Regular rate and rhythm. ABDOMEN: No organomegaly, mass or tenderness. EXTREMITIES: No cyanosis, clubbing, edema, or cords. NEUROLOGIC: No focal motor or sensory deficits. ASSESSMENT AND PLAN: 1. Pancytopenia: As per my problem list above this is multifactorial. I will treat him for iron deficiency anemia but that does not account for his leukopenia or thrombocytopenia. He could have myelodysplasia or this could be early myelodysplasia with refractory anemia or this could be mimicked by his methotrexate. In addition, the megaloblastic changes can be mimicked by B12 or folate deficiency and I will check his serum methylmalonic acid and call him the results of that next week to start him on B12 or folate if those are abnormal. He also has abnormal renal function now at this point and I am getting him to see the Pocket Operator and he may yet come to Procrit therapy. 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 On his bone marrow biopsy his platelets were normal at 210, his hemoglobin was 10.1 with a white count 1700, and the main issue therefore is his leukopenia but he has not had any major infections other than for the recurrent mouth sores, which the Peridex seems to work for. PEYMAN BAKER : 1955 DATE OF VISIT: 09/10/2011 ASSESSMENT AND PLAN - continued: I will see him back in two months and will see how he does on the ferrous sulfate plus or minus B12 or folate and have him see a Pocket Operator in follow-up with Dr. Nunez to get started back on non-myelosuppressive therapy for his severe rheumatoid arthritis. He is already on ibuprofen 800 mg 4 times a day along with prednisone, 1 mg of folic acid a day, and tramadol. Robert Meeks M.D.* LH/rxalw Doc. ID [id number] Rev. #0 cc: Page 2 of 3 Page 1 of 3 Authenticated by ROBERT MEEKS M.D. On 09/12/2011 09:30:18 AM Shan Gagnon M.D. ' Anthony Barkley M.D. ' Robert Meeks M.D. ' JOVAN Koo M.D. ' Tess Bragg M.D. ' JOVAN Vaughan: [address] [facility], [address] [place] [address] [employer] OFFICE NOTE PEYMAN BAKER : 1955 DATE OF VISIT: 09/10/2011 PROBLEM LIST: 1. Pancytopenia. a. Iron deficiency anemia (ferritin in the 90s with iron of 20 and a normal total iron binding capacity and absent iron stores on bone marrow biopsy with negative colonoscopy within the last two years he says). b. 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 i. His bone marrow showed absent iron stores and dysplastic changes, but normal cytogenetics. This could be refractory anemia or could be mimicked by prior methotrexate toxicity or it could be B12 or folate deficiency. c. Anemia of renal disease (creatinine of 1.5, which was 1.0 in June). d. 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 SUBJECTIVELY: Peyman's joints are really getting the best of him off of his immunosuppressive therapy and that is his main complaint. He has also had some oral sores that he has treated with Peridex. He also thinks there might be a blister in the back of his throat. REVIEW OF SYSTEMS: Ten-point review of systems positive for the severe joint pains, but otherwise is negative on a ten-point review of systems. SOCIAL HISTORY: Unchanged from 08/28/2011. PEYMAN BAKER : 1955 DATE OF VISIT: 09/10/2011 PHYSICAL EXAMINATION: VITAL SIGNS: Reveals his vital signs to be normal. GENERAL: Extremities reveal the very marked MCP and PIP joints abnormalities of his rheumatoid arthritis. LUNGS: Clear. HEART: Regular rate and rhythm. ABDOMEN: No organomegaly, mass or tenderness. EXTREMITIES: No cyanosis, clubbing, edema, or cords. NEUROLOGIC: No focal motor or sensory deficits. ASSESSMENT AND PLAN: 1. Pancytopenia: As per my problem list above this is multifactorial. I will treat him for iron deficiency anemia but that does not account for his leukopenia or thrombocytopenia. He could have myelodysplasia or this could be early myelodysplasia with refractory anemia or this could be mimicked by his methotrexate. In addition, the megaloblastic changes can be mimicked by B12 or folate deficiency and I will check his serum methylmalonic acid and call him the results of that next week to start him on B12 or folate if those are abnormal. He also has abnormal renal function now at this point and I am getting him to see the Pocket Operator and he may yet come to Procrit therapy. 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 On his bone marrow biopsy his platelets were normal at 210, his hemoglobin was 10.1 with a white count 1700, and the main issue therefore is his leukopenia but he has not had any major infections other than for the recurrent mouth sores, which the Peridex seems to work for. PEYMAN BAKER : 1955 DATE OF VISIT: 09/10/2011 ASSESSMENT AND PLAN - continued: I will see him back in two months and will see how he does on the ferrous sulfate plus or minus B12 or folate and have him see a Pocket Operator in follow-up with Dr. Nunez to get started back on non-myelosuppressive therapy for his severe rheumatoid arthritis. He is already on ibuprofen 800 mg 4 times a day along with prednisone, 1 mg of folic acid a day, and tramadol. Robert Meeks M.D.* LH/rxalw Doc. ID [id number] Rev. #1 cc: Jesus Nunez Jr., M.D.* [facility] Wesley Smith M.D.* Mitul Weinberg M.D.* Page 3 of 3 Page 1 of 3 Authenticated by ROBERT MEEKS M.D. On 09/12/2011 12:08:37 PM documented in this encounter Plan of Treatment Upcoming Encounters Date Type Department Care Team (Late st Contact Info) Description 07/20/2025 3:15 PM EST Office Visit [facility] RHEUMATOLOGY [address] [place] [phone] Gabo Da Silva APRN [address] [place] [address] 08/10/2025 8:30 AM EST Appointment [facility] OUTPATIENT ONCOLOGY [place] [address] [facility] [address] [place] [phone] documented as of this encounter Visit Diagnoses Not on filedocumented in this encounter Additional Health Concerns Infection Onset Date Last Indicated Resolved Time COVID Screen (preop/placement) 01/31/2022 01/31/2022 09/05/2023 12:11 PM EST documented as of this encounter Care Teams Marketing Technology Specialist Relationship Specialty Start Date End Date Jacob Magana MD [address] [facility] [address] [place] [address] PCP - General Adolescent Medicine 08/10/22 documented as of this encounter
--- OUTSIDE RECORDS SUMMARY | 2025-04-15 09:42 | XMS_ITS | Encounter Summary ---
[facility] Address [address] [place] [address] Care Team Providers Care Hop Farm Worker Name Role Phone Jacob Magana MD Primary Care Provider [phone] Encounter Details Date Type Department Care Team (Late st Contact Info) Description 11/13/2011 Conversion Encounter [facility] HISTORICAL CONV [address] [place] [address] Interface, See Report Social History Tobacco Use Types Packs/Day Years Used Date Smoking Tobacco: Never Assessed Sex and Gender Information Value Date Recorded Sex Assigned at Male 04/06/2025 8:37 AM EDT Legal Sex Male 11:44 AM EDT Gender Identity Not on file Sexual Orientation Not on file documented as of this encounter H&P Notes * Interface, See Report - 11/13/2011 2:39 PM EDT Shan Gagnon M.D. ' Anthony Barkley M.D. ' Carter Monzon M.D. ' JOVAN Koo M.D. ' Tess Bragg M.D. ' Yris Wilkins APRN [facility] [facility], [address] [place] [address] [facility] OFFICE NOTE TYRON BAKER : 1955 DATE OF VISIT: 11/13/2011 PROBLEM LIST: 1. 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 DATA: 11/05/2011 CBC - WBC of 1200, hemoglobin 13.2, hematocrit 42.3, platelets 115,000. Granulocytes 26%, lymphocytes 56%. SUBJECTIVE: Mr. Baker states that he is feeling much better, although beginning Saturday he feels that he is significantly more fatigued than he had previously been. He does note that on Saturday he began dose reduction of his prednisone as outlined by Dr. Monzon and started taking 20 mg daily instead of 60 mg daily. He denies any other change. His appetite has improved greatly and he is gaining weight. He denies any fevers or chills. He does continue to have some hoarseness and is scheduled to see someone with [facility] next week. He has an appointment this afternoon with Dr. Nunez. REVIEW OF SYSTEMS: Other than the fatigue ten-point review of systems is negative. SOCIAL HISTORY: Unchanged from 10/26/2011. PHYSICAL EXAMINATION: GENERAL: Reveals Mr. Baker to look significantly stronger than he has on his previous two visits. VITAL SIGNS: His weight is up to 203 pounds from previous of 188 pounds. Vitals within normal limits and he is afebrile. HEENT: Oral mucosa is moist. NECK: Supple with no lymphadenopathy. TYRON BAKER : 1955 DATE OF VISIT: 11/13/2011 PHYSICAL EXAMINATION - continued: LUNGS: Clear to auscultation bilaterally. HEART: Regular rate and rhythm. ABDOMEN: Soft and nontender with no masses noted. EXTREMITIES: No cyanosis, clubbing, or edema NEUROLOGIC: Grossly nonfocal. ASSESSMENT AND PLAN: 1. 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 Baker' Cytoxan due to him doing so well and his counts remaining stable. We will have him take 50 mg alternating with 100 mg daily. We will continue checking a CBC every other week. We will continue on also with his prednisone taper over the next 6 to 8 weeks. I will give Mr. Baker written instructions to follow for this taper. We will have him return for follow-up to see us in one month. Yris Wilkins APRN* SE/rxalw Doc. ID [id number] Rev. #1 cc: Jesus Nunez Jr., M.D.* Mitul Weinberg M.D.* Manuel Azar D.O.* Agusto Colón M.D.* [facility] Page 2 of 2 Page 1 of 2 Authenticated and Edited by YRIS WILKINS APRN On 11/14/11 6:26:26 PM documented in this encounter Plan of Treatment Upcoming Encounters Date Type Department Care Team (Late st Contact Info) Description 07/20/2025 3:15 PM EST Office Visit [facility] [address] [facility] [address] [place] [address] Gabo Da Silva APRN [address] [facility] [address] [place] [address] 08/10/2025 8:30 AM EST Appointment [facility] OUTPATIENT ONCOLOGY [place] [address] [facility] [address] [place] [address] documented as of this encounter Visit Diagnoses Not on filedocumented in this encounter Additional Health Concerns Infection Onset Date Last Indicated Resolved Time COVID Screen (preop/placement) 01/31/2022 01/31/2022 09/05/2023 12:11 PM EST documented as of this encounter Care Teams Hop Farm Worker Relationship Specialty Start Date End Date Jacob Magana MD [address] [facility] [address] [place] [address] PCP - General Adolescent Medicine 08/10/22 documented as of this encounter
--- OUTSIDE RECORDS SUMMARY | 2025-04-15 09:42 | XMS_ITS | Encounter Summary ---
Author Organization [facility] Address [address] [place] [address] Care Team Providers Care Wireless Sales Associate Name Role Phone Jacob Magana MD Primary Care Provider [phone] Encounter Details Date Type Department Care Team (Late st Contact Info) Description 08/28/2011 Conversion Encounter [facility] HISTORICAL CONV [address] [place] [address] Interface, See Report Social History Tobacco Use Types Packs/Day Years Used Date Smoking Tobacco: Never Assessed Sex and Gender Information Value Date Recorded Sex Assigned at Male 04/06/2025 8:37 AM EDT Legal Sex Male 11:44 AM EDT Gender Identity Not on file Sexual Orientation Not on file documented as of this encounter H&P Notes * Interface, See Report - 08/28/2011 11:15 AM EST OFFICE NOTE PEYMAN BAKER : 1955 DATE OF VISIT: 08/28/2011 PROBLEMS: 1. Pancytopenia. 2. Rheumatoid arthritis. SUBJECTIVE: Even though he has been off of the methotrexate, he continues to have pancytopenia and has had oral sores with this treated with Peridex. Obviously, off of his immunosuppressives his joints have been giving him fits and that is certainly a concern. He is still on some low-dose prednisone at 5 mg a day as well as folic acid 1 mg a day, tramadol 50 mg 2 to 4 times a day, ibuprofen 800 mg 4 times a day, and Cozaar. SOCIAL HISTORY: Unchanged from 07/31/2011. REVIEW OF SYSTEMS: Ten-point review of systems is negative. PHYSICAL EXAMINATION: GENERAL: Reveals the typical and quite marked rheumatoid arthritic changes in the MCP and PIP joints. VITAL SIGNS: His weight is down about another 3 pounds. His vital signs are normal. LUNGS: Clear. HEART: Regular rate and rhythm. ABDOMEN: No organomegaly, mass or tenderness. EXTREMITIES: No cyanosis, clubbing, edema, or cords. NEUROLOGIC: No focal deficits. PEYMAN BAKER : 1955 DATE OF VISIT: 08/28/2011 DATA: CAT scan of chest, abdomen and pelvis showed no adenopathy, but did have splenomegaly. Ultrasound today was done and he had splenomegaly and he does have significant gallstones, but no obvious portal hypertension to cause the splenomegaly. His white count is still 2000 with hemoglobin 10.9, MCV of 78, and platelet count 204,000 with 1.7% lymphocytes on his peripheral blood and absolute neutrophil count of 100. ASSESSMENT AND PLAN: 1. Pancytopenia with neutropenia: I suspect he has an autoimmune antibody against his granulocytes causing this, but I will get a bone marrow to make sure there is no evidence of leukemia or lymphoma causing this. He has been off the methotrexate long enough that it should have left his bone marrow alone at this point to have recovered a bit. I do not see obvious lymphoma and I think the splenomegaly is probably related to his rheumatoid arthritis and not lymphoma at this junction. I will see him back in a couple of weeks to go over his bone marrow biopsy and I will check his iron indices. He has had a colonoscopy within the last two years he says. Carter Meeks M.D.* LH/rxalw Doc. ID: [id number] Rev. #0 cc: Wesley Smith M.D.* Jesus Nunez Jr., M.D.* Mitul Weinberg M.D.* Page 2 of 2 [facility] Page 1 of 2 Authenticated by CARTER MEEKS M.D. On 08/30/2011 01:11:55 PM documented in this encounter Plan of Treatment Upcoming Encounters Date Type Department Care Team (Late st Contact Info) Description 07/20/2025 3:15 PM EST Office Visit [facility] RHE[facility]Y [address] [facility] 100 [place] [phone] Gabo D aSilva APRN [address] [facility] [address] [place] [address] 08/10/2025 8:30 AM EST Appointment [facility] OUTPATIENT ONCOLOGY [place] [address] [facility] [address] [place] [phone] documented as of this encounter Visit Diagnoses Not on filedocumented in this encounter Additional Health Concerns Infection Onset Date Last Indicated Resolved Time COVID Screen (preop/placement) 01/31/2022 01/31/2022 09/05/2023 12:11 PM EST documented as of this encounter Care Teams Wireless Sales Associate Relationship Specialty Start Date End Date Jacob Magana MD 12[address] [facility] [address] [facility] [address] [place] [address] PCP - General Adolescent Medicine 08/10/22 documented as of this encounter
--- OUTSIDE RECORDS SUMMARY | 2025-04-15 09:42 | XMS_ITS | Encounter Summary ---
Author Organization [facility] Address [address] [place] [address] Care Team Providers Care Whittling Room Operator Name Role Phone Jacob Magana MD Primary Care Provider [phone] Encounter Details Date Type Department Care Team (Late st Contact Info) Description 07/03/2011 Conversion Encounter [facility] HISTORICAL CONV [address] [place] [address] Interface, See Report Social History Tobacco Use Types Packs/Day Years Used Date Smoking Tobacco: Never Assessed Sex and Gender Information Value Date Recorded Sex Assigned at Male 04/06/2025 8:37 AM EDT Legal Sex Male 11:44 AM EDT Gender Identity Not on file Sexual Orientation Not on file documented as of this encounter H&P Notes * Interface, See Report - 07/03/2011 10:50 AM EST OFFICE NOTE PEYMAN BAKER : 1955 DATE OF VISIT: 07/03/2011 PROBLEMS: 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 SUBJECTIVE: Since last I saw Peyman in November 2010 he has had a total hip replacement without any infection complications. His white count was up to normal back in March and started back on methotrexate by the first of June his white count was down to 1700 and he has been off the methotrexate and more recently his white count was back up to 2900 according to the patient. I am asked to see him regarding this. When last I saw him he had an ultrasound done in November that showed some gallstones, but no abnormality of the gallbladder itself, and he had a slightly prominent diffuse enlargement of the spleen of 13.8 cm maximum sagittal dimension. He denies any bed drenching night sweats. He has had some diminution in his blood pressure such that he has been able to come off of some of his blood pressure medications and that has helped him feel stronger. He has been eating reasonably well and maintaining his weight. His joints are still an issue obviously with being on low dose prednisone but off of all other disease remitting therapies. SOCIAL HISTORY: Unchanged from 11/13/2010. REVIEW OF SYSTEMS: Negative for any other ENT, ocular, pulmonologic, gastrointestinal, genitourinary, musculoskeletal, or neurologic complaints. PHYSICAL EXAMINATION: VITAL SIGNS: Reveals blood pressure 153/84, otherwise normal vital signs. MUSCULOSKELETAL: He had diffuse arthritis particularly in the MCP and PIP joints, knees, and elbows. PEYMAN BAKER : 1955 DATE OF VISIT: 07/03/2011 PHYSICAL EXAMINATION - continued: GENERAL: He has no discernible adenopathy or splenomegaly today. LUNGS: Clear. HEART: Regular rate and rhythm. ABDOMEN: No organomegaly, mass or tenderness. EXTREMITIES: No cyanosis, clubbing, edema, or cords. NEUROLOGIC: No focal motor or sensory deficits. ASSESSMENT AND PLAN: 1. Rheumatoid arthritis. 2. 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 In the interim, in light of the splenomegaly, I will check a CT just to make sure there are no other adenopathy to suggest a lymphomatous process, but I think most likely the splenic enlargement is related to his autoimmune disease and not particularly causing the white count as the white count does improve when he stops his immunosuppressive therapy with methotrexate cessation. Were this primarily sequestration in the spleen then stopping the methotrexate would not have much impact on his counts. Carter Meeks M.D.* LH/rxalw Doc. ID: [id number] Rev. #0 cc: Jesus Nunez Jr., M.D.* Mitul Weinberg M.D.* Wesley Smith M.D.* Page 2 of 2 [facility] Page 1 of 2 Authenticated by CARTER MEEKS M.D. On 07/05/2011 08:26:10 AM documented in this encounter Plan of Treatment Upcoming Encounters Date Type Department Care Team (Late st Contact Info) Description 07/20/2025 3:15 PM EST Office Visit [facility] RHEUMATOLOGY 330 [facility] [address] [place] [address] Gabo Da Silva APRN 330 [facility] 100 [place] [address] 08/10/2025 8:30 AM EST Appointment [facility] OUTPATIENT ONCOLOGY [place] [address] [facility] [address] [place] [id number] documented as of this encounter Visit Diagnoses Not on filedocumented in this encounter Additional Health Concerns Infection Onset Date Last Indicated Resolved Time COVID Screen (preop/placement) 01/31/2022 01/31/2022 09/05/2023 12:11 PM EST documented as of this encounter Care Teams Whittling Room Operator Relationship Specialty Start Date End Date aJcob Magana MD [address] [facility] [address] [place] [address] PCP - General Adolescent Medicine 08/10/22 documented as of this encounter
--- OUTSIDE RECORDS SUMMARY | 2025-04-15 09:42 | XMS_ITS | Encounter Summary ---
Author Organization [facility] Address [address] [place] [address] Care Team Providers Care Concrete Engineering Technician Name Role Phone Jacob Magana MD Primary Care Provider [phone] Encounter Details Date Type Department Care Team (Late st Contact Info) Description 10/27/2024 Results Follow-Up [facility] RHEUMATOLOGY [address] [address] Johann Schaeffer DO [address] [id number] Social History Tobacco Use Types Packs/Day Years [...] on file documented as of this encounter Plan of Treatment Upcoming Encounters Date Type Department Care Team (Late st Contact Info) Description 07/20/2025 3:15 PM EST Office Visit [facility] RHEUMATOLOGY [address] [address] Gabo Da Silva APRN [address] [address] 08/10/2025 8:30 AM EST Appointment [facility] OUTPATIENT ONCOLOGY [address] [place] [address] documented as of this encounter Visit Diagnoses Not on filedocumented in this encounter Care Teams Concrete Engineering Technician Relationship Specialty Start Date End Date Jacob Magana MD [address] [facility] [address] [facility] [address] [place] [address] PCP - General Adolescent Medicine 08/10/22 documented as of this encounter
--- OUTSIDE RECORDS SUMMARY | 2025-04-15 09:42 | XMS_ITS | Encounter Summary ---
Author Organization [facility] Address [address] [place] [address] Care Team Providers Care Customs Broker Name Role Phone Jacob Magana MD Primary Care Provider [phone] Encounter Details Date Type Department Care Team (Late st Contact Info) Description 07/31/2011 Conversion Encounter [facility] HISTORICAL CONV [address] [place] [address] Interface, See Report Social History Tobacco Use Types Packs/Day Years Used Date Smoking Tobacco: Never Assessed Sex and Gender Information Value Date Recorded Sex Assigned at Male 04/06/2025 8:37 AM EDT Legal Sex Male 11:44 AM EDT Gender Identity Not on file Sexual Orientation Not on file documented as of this encounter H&P Notes * Interface, See Report - 07/31/2011 1:49 PM EST OFFICE NOTE PEYMAN BAKER : 1955 DATE OF VISIT: 07/31/2011 PROBLEM LIST: 1. Rheumatoid arthritis. 2. 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 REVIEW OF SYSTEMS: 13-point review of systems is otherwise negative. SOCIAL HISTORY: Unchanged from 07/03/2011. PHYSICAL EXAMINATION: VITAL SIGNS: Reveals weight down about 14 pounds since last I saw him. Vital signs otherwise normal. LUNGS: Clear. HEART: Regular rate and rhythm. ABDOMEN: No organomegaly, mass or tenderness. EXTREMITIES: Revealed diffuse arthritis with severe degenerative changes in the MCP and PIP joints as well as in the knees and elbows. DATA: CAT scan showed a 15 cm sagittal spleen with no other lymphadenopathy and this is not too far off from the size of the spleen on ultrasound in November of last year. CBC on July 03 revealed a white count 1300, hemoglobin 10.1, platelets 138,000, with an MCV of 80.8. Today, his MCV is down to 77.6 with a hemoglobin 11.1, white count 2100, platelets 227,000 with absolute neutrophil count of 300. PEYMAN BAKER : 1955 DATE OF VISIT: 07/31/2011 ASSESSMENT AND PLAN: 1. Pancytopenia: This is almost assuredly drug-induced, but I will get a liver spleen ultrasound to rule out portal hypertension. I suspect the splenomegaly is due to his rheumatoid arthritis. If when I see him back his counts have nearly recovered to normal, then I will talk to his Hat Trimmer about resuming whatever therapy is necessary to cool his joints down and just to monitor his counts. If, on the other hand, his counts are not better then we may need to do a bone marrow biopsy to rule out a lymphoproliferative disorder, though I think that is unlikely. Carter Meeks M.D.* LH/rxalw Doc. ID: [id number] Rev. #0 cc: Wesley Smith M.D.* Jesus Nunez Jr., M.D.* Mitul Weinberg M.D.* Page 2 of 2 [facility] Page 1 of 2 Authenticated by CARTER MEEKS M.D. On 08/02/2011 09:07:39 AM OFFICE NOTE - AMENDED PEYMAN BAKER : 1955 DATE OF VISIT: 07/31/2011 PROBLEM LIST: 1. Rheumatoid arthritis. 2. 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 There is a sore in the middle of his tongue that has been there for the last couple of weeks. He thinks it is getting better at the moment, but had been sore with some drainage. REVIEW OF SYSTEMS: 13-point review of systems is otherwise negative. SOCIAL HISTORY: Unchanged from 07/03/2011. PHYSICAL EXAMINATION: VITAL SIGNS: Reveals weight down about 14 pounds since last I saw him. Vital signs otherwise normal. HEENT: There is a punctate erythematous, approximately the size of a quarter, area with a little bit of an exudate in the center of his tongue. There is some mild erythema surrounding the exudate. This does not look like thrush and there is a tiny cavity beneath the exudate. LUNGS: Clear. HEART: Regular rate and rhythm. ABDOMEN: No organomegaly, mass or tenderness. EXTREMITIES: Revealed diffuse arthritis with severe degenerative changes in the MCP and PIP joints as well as in the knees and elbows. PEYMAN BAKER : 1955 DATE OF VISIT: 07/31/2011 DATA: CAT scan showed a 15 cm sagittal spleen with no other lymphadenopathy and this is not too far off from the size of the spleen on ultrasound in November of last year. CBC on July 03 revealed a white count 1300, hemoglobin 10.1, platelets 138,000, with an MCV of 80.8. Today, his MCV is down to 77.6 with a hemoglobin 11.1, white count 2100, platelets 227,000 with absolute neutrophil count of 300. ASSESSMENT AND PLAN: 1. Pancytopenia: This is almost assuredly drug-induced, but I will get a liver spleen ultrasound to rule out portal hypertension. I suspect the splenomegaly is due to his rheumatoid arthritis. If when I see him back his counts have nearly recovered to normal, then I will talk to his Hat Trimmer about resuming whatever therapy is necessary to cool his joints down and just to monitor his counts. If, on the other hand, his counts are not better then we may need to do a bone marrow biopsy to rule out a lymphoproliferative disorder, though I think that is unlikely. 2. Tongue ulceration: I am going to have him use Peridex to try to sterilize this tongue abnormality and if it does not improve within the next week then we will need him to see the Infectious Disease doctors and he will call me to let me know. Carter Meeks M.D.* LATOYA/rxnydia Doc. ID: [id number] Rev. #1 cc: Wesley Smith M.D.* Jesus Nunez Jr., M.D.* Mitul Weinberg M.D.* Page 2 of 2 [facility] Page 1 of 2 Authenticated by CARTER MEEKS M.D. On 08/02/2011 09:10:03 AM documented in this encounter Plan of Treatment Upcoming Encounters Date Type Department Care Team (Late st Contact Info) Description 07/20/2025 3:15 PM EST Office Visit [facility] RHEUMATOLOGY [address] [facility] [address] [place] [address] Gabo Da Silva APRN 330 [facility] 100 [place] [address] 08/10/2025 8:30 AM EST Appointment [facility] OUTPATIENT ONCOLOGY [place] 3000 [facility] [address] [place] [id number] documented as of this encounter Visit Diagnoses Not on filedocumented in this encounter Additional Health Concerns Infection Onset Date Last Indicated Resolved Time COVID Screen (preop/placement) 01/31/2022 01/31/2022 09/05/2023 12:11 PM EST documented as of this encounter Care Teams Customs Broker Relationship Specialty Start Date End Date Jacob Magana MD 12[address] [facility] [address] [place] [address] PCP - General Adolescent Medicine 08/10/22 documented as of this encounter
--- OUTSIDE RECORDS SUMMARY | 2025-04-15 09:42 | XMS_ITS | Encounter Summary ---
Author Organization [facility] Address [address] [place] [address] Care Team Providers Care Marketing Communications Associate Name Role Phone Jacob Magana MD Primary Care Provider [phone] Encounter Details Date Type Department Care Team (Late st Contact Info) Description 01/26/2025 Results Follow-Up [facility] RHEUMATOLOGY [address] [address] Janice Phelps APRN [address] [id number] Social History Tobacco Use Types Packs/Day Years [...] Description 07/20/2025 3:15 PM EST Office Visit [facility] RHEUMATOLOGY [address] [address] Gabo Da Silva APRN [address] [address] 08/10/2025 8:30 AM EST Appointment [facility] OUTPATIENT ONCOLOGY [place] 3000 [facility] [address] [place] [address] documented as of this encounter Visit Diagnoses Not on filedocumented in this encounter Care Teams Marketing Communications Associate Relationship Specialty Start Date End Date Jacob Magana MD 1210 [facility] [address] [facility] [address] [place] [address] PCP - General Adolescent Medicine 08/10/22 documented as of this encounter
--- OUTSIDE RECORDS SUMMARY | 2025-04-15 09:42 | XMS_ITS | Encounter Summary ---
Author Organization [facility] Address [address] [place] [address] Care Team Providers Care Hospital Personnel Director Name Role Phone Jacob Magana MD Primary Care Provider [phone] Encounter Details Date Type Department Care Team (Late st Contact Info) Description 10/26/2011 Conversion Encounter [facility] HISTORICAL CONV [address] [place] [address] Interface, See Report Social History Tobacco Use Types Packs/Day Years Used Date Smoking Tobacco: Never Assessed Sex and Gender Information Value Date Recorded Sex Assigned at Male 04/06/2025 8:37 AM EDT Legal Sex Male 11:44 AM EDT Gender Identity Not on file Sexual Orientation Not on file documented as of this encounter H&P Notes * Interface, See Report - 10/26/2011 3:02 PM EDT Shan Gagnon M.D. ' Anthony Barkley M.D. ' Robert Meeks M.D. ' JOVAN Koo M.D. ' Tess Bragg M.D. ' Whitley Wilkins APRN [facility], [address] [place] [address] [facility] OFF[facility] NOTE TYRON BAKER : 1955 DATE OF VISIT: 10/26/2011 PROBLEMS: 1. 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 SUBJECTIVE: He is feeling much better and gaining strength. His white count is up to 1600 with 50% neutrophils, which is much better than it has been, and his joints are getting much less inflamed compared to when last we saw him on the . REVIEW OF SYSTEMS: Negative for any other problems on ten-point review of systems other than for history of present illness and other than for his usual arthritis, particularly in the MCP and PIP joints of the hands. SOCIAL HISTORY: Unchanged from 10/12/2011. PHYSICAL EXAMINATION: VITAL SIGNS: Reveals him to be afebrile. Normal vital signs. HEENT: No oropharyngeal lesions. LUNGS: Clear. HEART: Regular rate and rhythm. ABDOMEN: No organomegaly, mass or tenderness. EXTREMITIES: No cyanosis, clubbing, edema, or cords. MUSCULOSKELETAL: Reveals diminishing synovitis of the MCP and PIP joints and elbows. NEUROLOGIC: He has some hoarseness but no other focal motor or sensory deficits. The hoarseness is not new but not getting better despite the improvement in his counts. TYRON BAKER : 1955 DATE OF VISIT: 10/26/2011 DATA: CAT scans in September did not show any adenopathy but did show splenomegaly. ASSESSMENT AND PLAN: 1. 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 He will continue to follow up with Dr. Jesus Nunez. Robert Meeks M.D.* /rxalw Doc. ID [id number] Rev. #0 cc: Jesus Nunez Jr., M.D.* Mitul Weinberg M.D.* Manuel Azar D.O.* Agusto Colón M.D.* Page 2 of 2 Page 1 of 2 Authenticated by ROBERT MEEKS M.D. On 10/30/2011 01:35:28 PM documented in this encounter Plan of Treatment Upcoming Encounters Date Type Department Care Team (Late st Contact Info) Description 07/20/2025 3:15 PM EST Office Visit [facility] RHEUMATOLOGY 330 [facility] [address] [place] [address] Gaob Da Silva APRN [address] [facility] [address] [place] [address] 08/10/2025 8:30 AM EST Appointment [facility] OUTPATIENT ONCOLOGY [place] [address] [facility] [address] [place] [address] documented as of this encounter Visit Diagnoses Not on filedocumented in this encounter Additional Health Concerns Infection Onset Date Last Indicated Resolved Time COVID Screen (preop/placement) 01/31/2022 01/31/2022 09/05/2023 12:11 PM EST documented as of this encounter Care Teams Hospital Personnel Director Relationship Specialty Start Date End Date Jacob Magana MD 1210 [facility] [address] [place] [address] PCP - General Adolescent Medicine 08/10/22 documented as of this encounter
--- OUTSIDE RECORDS SUMMARY | 2025-04-15 09:43 | XMS_ITS | Encounter Summary ---
[facility] Address [address] [place] [address] Care Team Providers Care Dental Aide Name Role Phone Jacob Magana MD Primary Care Provider [phone] Encounter Details Date Type Department Care Team (Late st Contact Info) Description 12/07/2011 Conversion Encounter [facility] HISTORICAL CONV [address] [place] [address] Interface, See Report Social History Tobacco Use Types Packs/Day Years Used Date Smoking Tobacco: Never Assessed Sex and Gender Information Value Date Recorded Sex Assigned at Male 04/06/2025 8:37 AM EDT Legal Sex Male 11:44 AM EDT Gender Identity Not on file Sexual Orientation Not on file documented as of this encounter H&P Notes * Interface, See Report - 12/07/2011 2:42 PM EDT Shan Gagnon M.D. ' Anthony Barkley M.D. ' Robert Meeks M.D. ' JOVAN Koo M.D. ' Tess Bragg M.D. ' Yris Wilkins APRN [facility] [facility], [address] [place] [address] [employer] OFFICE NOTE TYRON BAKER : 1955 DATE OF VISIT: 12/07/2011 PROBLEM LIST: 1. 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 DATA: His white count today is up to 2200 with absolute neutrophil count of 1500 on 50 mg alternating with 100 mg of Cytoxan and prednisone dose down to 12.5 mg a day, soon to go to 10 mg a day. SUBJECTIVELY: He is having a little bit of frontal headache but that is just mild and no fevers or chills or other constitutional complaints. His joints are little bit more tender as we continue to taper the prednisone. REVIEW OF SYSTEMS: Otherwise negative on ten-point review of system. SOCIAL HISTORY: Unchanged from 11/13/2011. PHYSICAL EXAMINATION: VITAL SIGNS: Reveals his weight up to 206 which is up from 169 on October 11 and this is all real weight and not just fluid weight. 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 VITAL SIGNS: Reveals him to be afebrile. Normal vital signs. HEENT: No oropharyngeal lesions. LUNGS: Clear. HEART: Regular rate and rhythm. ABDOMEN: No organomegaly, mass or tenderness. EXTREMITIES: No cyanosis, clubbing, or cords. TYRON BAKER : 1955 DATE OF VISIT: 12/07/2011 PHYSICAL EXAMINATION: continued NEUROLOGIC: No focal deficits. Rheumatological examination shows MCP joint inflammation as well as PIP joints inflammation. ASSESSMENT AND PLAN: 1. 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 We will increase to 100 mg daily. His hemoglobin and platelets are normal. We will watch his CBC weekly and as long as the rest of his counts tolerate this, hopefully the increased dose of Cytoxan will allow us to put him on a steroid sparing dose. I will see him back in a month to make sure he continues to tolerate this. Robert Meeks M.D.* LH/rxdrs Doc. ID [id number] Rev. #0 cc: Jesus Nunez Jr., M.D.* Mitul Weinberg M.D.* Manuel Azar D.O.* Agusto Colón M.D.* [facility] Page 2 of 2 Page 1 of 2 Authenticated by ROBERT MEEKS M.D. On 12/11/2011 01:17:58 PM * Interface, See Report - 12/07/2011 2:42 PM EDT Shan Gagnon M.D. ' Anthony Barkley M.D. ' Robert Meeks M.D. ' JOVAN Koo M.D. ' Tess Bragg M.D. ' Yris Wilkins APRN [address] [place] [address], [facility] [address] [place] [address] [employer] OFFICE NOTE TYRON BAKER : 1955 DATE OF VISIT: 01/04/2012 PROBLEMS: 1. 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 DATA: His white count for the better part of the last month has been staying in the 2000s to mid 1000s but today is down to 1800. This is on 100 mg a day of Cytoxan and his steroid dose was down to 5 mg a day of prednisone at this junction. SUBJECTIVELY: He is having increasing pain in his joints as we taper the steroids. He is having no other major complaints and having no infectious. REVIEW OF SYSTEMS: Otherwise negative on ten-point review of systems. SOCIAL HISTORY: Unchanged from 12/06/2010. PHYSICAL EXAMINATION: VITAL SIGNS: Reveals stable weight. Normal vital signs. HEENT: No oropharyngeal lesions. LUNGS: Clear. HEART: Regular rate and rhythm. ABDOMEN: No organomegaly, mass or tenderness. EXTREMITIES: Reveal synovitis in the proximal joints including the MCP, elbows, knees, ankles. He also has some IP joint inflammation. TYRON BAKER : 1955 DATE OF VISIT: 01/04/2012 ASSESSMENT AND PLAN: 1. T-cell large granular lymphocytic lymphoma with rheumatoid arthritis: We will continue him on 100 mg a day of Cytoxan. His hemoglobin and platelets are normal. Nonetheless, given his worsening somatic complaints in the joints and the diminishing white count I am going to go ahead and put him back up to 60 mg of prednisone for the next three days and then he will be on 20 day of prednisone until I see him back in a month and we will see what his weekly blood counts show on these measures. If that improves his systemic as well as hematological measurements then we will go to a glacial taper prednisone probably over a six month period of time. Robert Meeks M.D.* LH/rxalw Doc. ID [id number] Rev. #0 cc: Jesus Nunez Jr., M.D.* Mitul Weinberg M.D.* Manuel Azar D.O.* Agusto Colón M.D.* [facility] Page 2 of 2 Page 1 of 2 Authenticated by ROBERT MEEKS M.D. On 01/08/2012 09:03:54 AM * Interface, See Report - 12/07/2011 2:42 PM EDT Shan Gagnon M.D. ' Anthony Barkley M.D. ' Robert Meeks M.D. ' JOVAN Koo M.D. ' Tess Bragg M.D. ' Yris Wilkins APRN [address] [place] [address], [facility] [address] [place] [address] [employer] OFFICE NOTE TYRON BAKER : 1955 DATE OF VISIT: 02/01/2012 PROBLEMS: 1. Large granular lymphocytosis in the setting of rheumatoid arthritis. DATA: His white count is up to 2900, hemoglobin 15, platelets 146,000, on 100 a day of Cytoxan and 20 day of prednisone for the last month. SUBJECTIVELY: He is having much less joint pain and feeling well this month. He has had no infectious disease complications. REVIEW OF SYSTEMS: Otherwise negative on ten-point review of system. SOCIAL HISTORY: Unchanged from 01/04/2012. PHYSICAL EXAMINATION: VITAL SIGNS: Reveals his weight stable. Normal vital signs. HEENT: No oropharyngeal lesions. LUNGS: Clear. HEART: Regular rate and rhythm. ABDOMEN: No organomegaly, mass or tenderness. EXTREMITIES: Reveal less synovitis in the MCP, elbows, knees, and ankles than when I saw him a month ago. NEUROLOGIC: No focal deficits. TYRON BAKER : 1955 DATE OF VISIT: 02/01/2012 ASSESSMENT AND PLAN: 1. 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 We will glacially taper him over the next several months. Robert Meeks M.D.* LH/rxalw Doc. ID [id number] Rev. #0 cc: Jesus Nunez Jr., M.D.* Mitul Weinberg M.D.* Manuel Azar D.O.* Agusto Colón M.D.* [facility] Page 2 of 2 Page 1 of 2 Authenticated by ROBERT MEEKS M.D. On 02/07/2012 09:18:26 AM * Interface, See Report - 12/07/2011 2:42 PM EDT Shan Gagnon M.D. ' Anthony Barkley M.D. ' Robert Meeks M.D. ' Drew Limon, JOVAN Gordon M.D. ' Tess Bragg M.D. ' Yris Wilkins APRN [facility] [place] [address] [place] [address] [employer] OFFICE NOTE TYRON BAKER : 1955 DATE OF VISIT: 03/07/2012 PROBLEM LIST: 1. Large granular lymphocytosis in the setting of rheumatoid arthritis. DATA: 03/07/[id number]-[id number]-NNA of 4.2, hemoglobin 14.1, hematocrit 42.5, platelets 153,000, neutrophils 83.2, lymphocytes 11%, absolute lymphocytes 0.5, absolute neutrophil count 3.50. SUBJECTIVE: Other than fatigue that Mr. Baker experiences as the day goes on, he denies any complaints. He is working approximately 38 hours a week. He denies any fevers, chills, night sweats or weight loss. He has had no obvious infections or complications. He denies any unusual aches or pains. REVIEW OF SYSTEMS: Other than mentioned above negative for any other ENT, ocular, pulmonologic cardiovascular, gastrointestinal, genitourinary, musculoskeletal or neurologic complaints. SOCIAL HISTORY: Unchanged from 02/01/2012. PHYSICAL EXAMINATION: GENERAL: Reveals Mr. Baker looks great today. His weight is up slightly at 212 pounds. Vitals within normal limits. He is afebrile. HEENT: Oral mucosa is moist without lesions. NECK: Supple. No lymphadenopathy. LUNGS: Clear to auscultation bilaterally. HEART: Regular rate and rhythm. ABDOMEN: Soft and nontender. EXTREMITIES: No cyanosis, clubbing, or edema. NEUROLOGIC: Grossly nonfocal. TYRON BAKER : 1955 DATE OF VISIT: 03/07/2012 ASSESSMENT AND PLAN: 1. T-cell large granular lymphocytic lymphoma with rheumatoid arthritis: We will continue on with the Cytoxan at 100 mg daily. We will continue to slowly taper on the prednisone which he is currently taking 15 mg daily. We will have him go down 2.5 mg every two weeks. We will have him return to see us in six weeks for routine follow-up. Will repeat CBC in three weeks and on return. Yris Wilkins APRN* /rxadriana Doc. ID [id number] Rev. #0 cc: Jesus Nunez Jr., M.D.* Mitul Weinberg M.D.* Manuel Azar D.O.* Agusto Colón M.D.* [facility] Page 2 of 2 Page 1 of 2 Authenticated by YRIS WILKINS APRN On 03/12/2012 05:37:06 PM * Interface, See Report - 12/07/2011 2:42 PM EDT Shan Gagnon M.D. ' Anthony Barkley M.D. ' Robert Meeks M.D. ' JOVAN Koo M.D. ' Tess Bragg M.D. ' Yris Wilkins APRN [facility] [facility], [address] [place] [address] [employer] OFFICE NOTE TYRON BAKER : 1955 DATE OF VISIT: 04/08/2012 CHIEF COMPLAINT: 1. Large granular lymphocytosis in the setting of rheumatoid arthritis. 2. Right temporal skin lesion. DATA: CBC 04/08/2012 with a WBC of 4.5, hemoglobin 12.6, hematocrit 39, platelets 134,000, ANC 4.0. SUBJECTIVE: Overall Mr. Baker has been doing well. He still continues to report fatigue, but has no other complaints. He has now tapered down on his prednisone to 7.5 mg daily that he began this week and is tolerating the taper without any adverse effects. He states that the aches and pains in his joints have been stable. He did follow up earlier in the month with Dr. Nunez who is adjusting his pain medication. He denies any fevers or chills, night sweats, or weight loss. Appetite has been good. He does report that he has a new lesion on his right temporal area that occurred approximately one week ago and just appeared overnight. He denies any trauma to the area. The lesion is not painful. It has not had any drainage and is beginning to crust over. REVIEW OF SYSTEMS: Other than mentioned above negative for any specific ENT, ocular, pulmonologic, cardiovascular, gastrointestinal, genitourinary, musculoskeletal, or neurologic complaints. SOCIAL HISTORY: Unchanged from 03/07/2012. TYRON BAKER : 1955 DATE OF VISIT: 04/08/2012 PHYSICAL EXAMINATION: GENERAL: Reveals Mr. Baker looks great today. He is pleasant and in no obvious distress. VITAL SIGNS: His weight is stable at 218 pounds. Blood pressure is 173/91. Heart rate is 70. Respirations are 18 and unlabored. Temperature is 97.7. HEENT: Normocephalic. Sclerae anicteric. Oral mucosa is moist without lesions. NECK: Supple. LUNGS: Clear to auscultation bilaterally. HEART: Regular rate and rhythm. ABDOMEN: Soft and nontender with no masses noted. EXTREMITIES: No cyanosis, clubbing, or edema. INTEGUMENTARY: There is an approximately 4 cm necrotic-appearing lesion on the right temporal area that has an erythematous base and a dried hemorrhagic/scab appearance on top. There is no drainage. The area is firm and just mildly tender. ASSESSMENT AND PLAN: 1. T-cell large granular lymphocytic lymphoma with rheumatoid arthritis: Mr. Baker will continue on with Cytoxan at 100 mg daily. He will also continue to taper the prednisone that is currently down to 7.5 mg daily with goal of tapering to 2.5 to 5 mg for maintenance. We will have him return to see us in six weeks for follow-up with a CBC prior to return along with a CMP. 2. Right temporal skin lesion: We will refer Mr. Baker to [facility] for further evaluation. Yris Wilkins APRN* SE/rxalw Doc. ID [id number] Rev. #0 cc: Jesus Nunez Jr., M.D.* Mitul Weinberg M.D.* Manuel Azar D.O.* Agusto Colón M.D.* [facility] Page 2 of 2 Page 1 of 2 Authenticated by YRIS WILKINS APRN On 04/14/2012 12:51:09 PM * Interface, See Report - 12/07/2011 2:42 PM EDT Shan Gagnon M.D. ' Anthony Barkley M.D. ' Robert Meeks M.D. ' JOVAN Koo M.D. ' Tess Bragg M.D. ' Yris Wilkins APRN [address] [place] [address], [address] [place] [address] [employer] OFFICE NOTE TYRON BAKER : 1955 DATE OF VISIT: 05/23/2012 CHIEF COMPLAINT: 1. Large granular lymphocytosis in the setting of rheumatoid arthritis. 2. Right temporal skin lesion, now resolved. DATA: 04/22/2012-CBC with a WBC of 3.4, hemoglobin 12.2, hematocrit 36.1, platelets 132,000. ANC 3000. CMP pending at time of dictation. SUBJECTIVE: Mr. Baker continues to do well without any major complaints. He does report that he had attempted to taper down further on his prednisone but is basically only able to go down to approximately 7.5 mg daily, he takes 10 mg one day alternating with 5 mg the next. He states that his pain medication has been adjusted and he is taking less Ultram but therefore unfortunately needs the slightly higher dose of prednisone to offset this. He denies any fevers or chills. His energy level has been about the same. Appetite has been good. The previously noted right temporal skin lesion subsequently resolved spontaneously and therefore Mr. Baker states that he did not go as scheduled to the deputy chief executive. REVIEW OF SYSTEMS: Other than mentioned above, is negative for any other specific ENT, ocular, pulmonologic, cardiovascular, gastrointestinal, genitourinary, musculoskeletal, neurologic, or integumentary complaints. SOCIAL HISTORY: Unchanged from 04/08/2012. TYRON BAKER : 1955 DATE OF VISIT: 05/23/2012 PHYSICAL EXAMINATION: GENERAL: Reveals Mr. Baker looks very well today. He is pleasant and in no obvious distress. His accompanies him at today's visit. VITAL SIGNS: His weight is stable at 218 pounds. Blood pressure is 158/89. Heart rate is 68, temperature is 97.9. Respirations 20 and unlabored. HEENT: Normocephalic. Sclerae anicteric. Oral mucosa is moist without lesions. There are no lesions noted on the face and the prior noted lesion at the right temporal area has now disappeared with no residua. The skin is intact. NECK: Supple. LUNGS: Clear to auscultation bilaterally. HEART: Regular rate and rhythm. ABDOMEN: Soft and nontender with no masses noted. EXTREMITIES: No cyanosis, clubbing, or edema. He has stable diffuse rheumatoid changes in the MCP and PIP joints of the hands bilaterally. NEUROLOGIC: Grossly nonfocal. ASSESSMENT AND PLAN: 1. T-cell large granular lymphocytic lymphoma with rheumatoid arthritis: Mr. Baker continues to tolerate and do well with Cytoxan at 100 mg daily. He will continue this and states he does not need a refill at this time. His counts have remained stable. He will continue on with the prednisone and states he does follow up with Dr. Nunez in June and he will discuss this with him at that time along with his pain medication. In reference to the right temporal skin lesion, Mr. Baker will notify us if this recurs or call Dr. Daiana Moore's office directly for an appointment for evaluation of this if it recurs. TYRON BAKER : 1955 DATE OF VISIT: 05/23/2012 ASSESSMENT AND PLAN - continued: We will have Mr. Baker follow up with us in the office in two months. We will check a CBC in one month, and then again just prior to return in two months, along with CMP. Yris Wilkins APRN* /rxalw Doc. ID [id number] Rev. #1 cc: Daiana Moore M.D.* Jesus Nunez Jr., M.D.* Mitul Weinberg M.D.* Manuel Azar D.O.* Agusto Colón M.D.* [facility] Page 2 of 3 Page 1 of 3 Authenticated by YRIS WILKINS APRN On 06/02/2012 09:47:04 PM * Interface, See Report - 12/07/2011 2:42 PM EDT Shan Gagnon M.D. ' Anthony Barkley M.D. ' Robert Meeks M.D. ' JOVAN Koo M.D. ' Enrique Gordon M.D. ' Tess Bragg M.D. ' Yris Wilkins APRN [address] [place] [address], [place] [address] [place] [address] [employer] OFFICE NOTE TYRON BAKER : 1955 DATE OF VISIT: 07/25/2012 CHIEF COMPLAINT: Fatigue. PROBLEM LIST: 1. Large granular lymphocytosis in the setting of rheumatoid arthritis. DATA: CBC from today with a WBC 3.8, hemoglobin 13.1, hematocrit 39.4%, platelet count 97,000 (previously 130,000 06/20/2012). SUBJECTIVE: Mr. Baker continues to report fatigue, but other than this he denies any complaints. He does continue to work and states that he is considering long-term due to the fatigue and the toll that working is taking on his quality of life. He states his pain is now under better control and his Ultram has been adjusted. He denies any fevers, chills, night sweats, or weight loss. He has had no infections since we saw him last. REVIEW OF SYSTEMS: Otherwise negative for any specific ENT, ocular, pulmonologic, cardiovascular, gastrointestinal, genitourinary, musculoskeletal, neurologic, integumentary, or psychiatric complaints. SOCIAL HISTORY: Unchanged from 05/23/2012. PHYSICAL EXAMINATION: GENERAL: Reveals Mr. Baker continues to look well. He is pleasant and in no obvious distress. VITAL SIGNS: His weight is stable at 218 pounds. Blood pressure is 151/85. Heart rate is 66. Temperature is 98.1. Respirations 18 and unlabored. TYRON BAKER : 1955 DATE OF VISIT: 07/25/2012 PHYSICAL EXAMINATION - continued: HEENT: Normocephalic. Sclerae anicteric. Oral mucosa is moist. NECK: Supple. HEART: Regular rate and rhythm. ABDOMEN: Soft and nontender. EXTREMITIES: No cyanosis, clubbing, or edema. Stable rheumatoid changes in the MCV and PIP joints of bilateral hands. NEUROLOGIC: No focal motor or sensory deficits. COMPLETION: Per Dr. Robert Meeks: PHYSICAL EXAMINATION: NODES: All nonpalpable. LUNGS: Clear to auscultation. The rest of the physical examination was done by my Nurse Practitioner, Yris Wilkins, and I have seen and agree. ASSESSMENT AND PLAN: 1. Large granular lymphocytosis in setting of rheumatoid arthritis: We will continue 5 mg a day of prednisone and 100 mg daily of Cytoxan which he is tolerating well and the hemoglobin is 13.1 with a white count 3800, platelet count 97,000, and absolute neutrophil count of 3200. Yris Wilkins, JOVAN* Robert Meeks M.D. /demi; LATOYA/rxnydia Doc. ID [id number] Rev. #1 cc: Jesus Nunez Jr., M.D.* Mitul Weinberg M.D.* Manuel Azar D.O.* Agusto Colón M.D.* [facility] Daiana Moore M.D.* Page 2 of 2 Page 1 of 2 Authenticated by YRIS WILKINS APRN On 07/30/2012 07:57:55 PM * Interface, See Report - 12/07/2011 2:42 PM EDT Shan Gagnon M.D. ' Anthony Barkley M.D. ' Robert Meeks M.D. ' JOVAN Koo M.D. ' Enrique Gordon M.D. ' Tess Bragg M.D. ' Yris Wilkins APRN [address] [place] [address], [place] [address] [place] [address] [employer] OFFICE NOTE TYRON BAKER : 1955 DATE OF VISIT: 11/21/2012 CHIEF COMPLAINT: Arthritis. PROBLEM LIST: 1. Large granular lymphocytosis in setting of rheumatoid arthritis. SUBJECTIVE: He continues to have chronic fatigue with joint aches that rather constant, worse in the morning, better when he gets going, worse with major activities, better with disease remitting therapy, and currently is taking salsalate, prednisone, and Cytoxan as well as tramadol. He is on 100 mg a day dose of Cytoxan. REVIEW OF SYSTEMS: Negative for any other ENT, ocular, pulmonologic, gastrointestinal, genitourinary, musculoskeletal, neurologic, integumentary, immunologic or psychiatric complaints. SOCIAL HISTORY: Has a supportive family. MEDICATIONS: Medication Reconciliation for the patient has been reviewed and confirmed in the Electronic Medical Record. PHYSICAL EXAMINATION: VITAL SIGNS: Reveals temperature 97. Pulse 69 and regular. Respirations 18 and unlabored. Blood pressure 150/83. HEENT: No oropharyngeal lesions. LUNGS: Clear. HEART: Regular rate and rhythm. ABDOMEN: No organomegaly, mass or tenderness. EXTREMITIES: Reveal ulnar deviation of the hands with inflammation and synovitis of the MCP joints of his hands. NODES: No palpable adenopathy. ASSESSMENT AND PLAN: 1. Large granular lymphocytosis: His counts are stable with a white count of 3600, hemoglobin 12.3, platelets 99,000 and it has been in that range for quite some time. His overall picture is quite stable and we will continue current therapy and see him back with a blood count in three months as well as prior to return in six months. Robert Meeks M.D.* LH/rxalw Doc. ID [id number] Rev. #0 cc: Mitul Weinberg M.D.* Jesus Nunez Jr., M.D.* Manuel Azar D.O.* Agusto Colón M.D.* [facility] Daiana Moore M.D.* TYRON BAKER : 1955 DATE OF VISIT: 11/21/2012 Page 2 of 2 Page 1 of 2 Authenticated by ROBERT MEEKS M.D. On 11/27/2012 12:02:24 PM * Interface, See Report - 12/07/2011 2:42 PM EDT Shan Gagnon M.D. ' Anthony Barkley M.D. ' Robert Meeks M.D. ' Jeanne Coelho M.D. ' Winter Kline M.D. ' Yris Wilkins APRN ' Nona Hope APRN [address] [facility], [address] [place] [id number] [employer] OFFICE NOTE TYRON BAKER : 1955 DATE OF VISIT: 05/29/2013 CHIEF COMPLAINT: Mild fatigue but otherwise, I feel good. PROBLEM LIST: 1. Large granular lymphocytosis in the setting of rheumatoid arthritis. a. Currently on maintenance oral Cytoxan 100 mg daily. DATA: 03/04/2013: CBC: WBC 3.6, hemoglobin 11.8, hematocrit 35.1%, MCV 98.8, platelet count 99,000, ANC 3.2, lymphocytes 9.6%, absolute lymphocytes 0.3. 05/29/2013: CBC: WBC 3.3, hemoglobin 11.5, hematocrit 34.3%, platelet count 88,000, MCV 99.3, neutrophils, 81.8%, lymphocytes 14.9%, ANC 2.7. SUBJECTIVE: Tyron has been doing well since we saw him last. He denies any infections since we saw him last. He has not had any fevers, chills, night sweats, or weight loss. He continues to have some intermittent joint pain in regards to his arthritis and states he had had one flare up since we saw him last but that Dr. Nunez made some adjustments to his medications and he is doing better. He does continue to work part-time. He states that he does have fatigue and is able to do an activity or work for about four hours and then he needs to rest. His appetite is good. Bowels movements are regular with no blood in stool or dark tarry stools. REVIEW OF SYSTEMS: Negative for any other ENT, ocular, pulmonologic, gastrointestinal, genitourinary, musculoskeletal, neurologic, immunologic or psychiatric complaints. MEDICATIONS: Medication reconciliation for the patient has been reviewed and confirmed in the EMR. SOCIAL HISTORY: Tyron is and has a very supportive . He continues to part-time at [employer] in [place]. He is a nonsmoker, nondrinker. PHYSICAL EXAMINATION: GENERAL: Tyron looks very well today. He is pleasant and in no obvious distress. He is accompanied by his at today's visit. VITAL SIGNS: Weight is stable at 206 pounds. Blood pressure is 145/92. Heart rate 68. Respirations 16 and unlabored. Temperature is 98.5. HEENT: Normocephalic. Sclerae are anicteric. Oral mucosa is moist without lesions. NECK: Supple with no lymphadenopathy. HEART: Regular rate and rhythm. ABDOMEN: Soft and nontender. EXTREMITIES: No cyanosis, clubbing, edema, or cords. NEUROLOGIC: No focal motor or sensory deficits. COMPLETION: Per Dr. Robert Meeks: PHYSICAL EXAMINATION - continued: LUNGS: Clear to auscultation. NODES: All nonpalpable. The rest of the examination was done by Yris Wilkins and I have seen and concur. ASSESSMENT AND PLAN: 1. Large granular lymphocytosis: His Cytoxan and low-dose prednisone are well tolerated at 100 mg and 5 mg respectively. He had one flare of his arthritis since last I saw him for which he took salicylate and none since that time. Overall his quality of life has been excellent and he has not had any problems with recurrent infections, hematuria, bladder irritation, or any other complications from his treatments. ASSESSMENT AND PLAN - continued: He will see us back in six months with a blood count just prior to return and currently while he continues to have mild pancytopenia, it is all very stable over time on these very moderate doses of immunosuppressive therapy with Cytoxan and low dose prednisone. His white count was 3300 with a hemoglobin 11.5 and platelets of 88,000 today with absolute neutrophil count 2700. 2. Health maintenance: I did stress to him the importance of getting his cholesterol checked, prostate exam, colonoscopies performed, etc. Yris Wilkins, JOVAN* Robert Meeks M.D. /demi; LATOYA/demi Doc. ID [id number] Rev. #1 cc: Mitul Weinberg M.D.* Jesus Nunez Jr., M.D.* Manuel Azar D.O.* Agusto Colón M.D.* Daiana Moore M.D.* [facility] TYRON BAKER : 1955 DATE OF VISIT: 05/29/2013 Page 2 of 3 Page 1 of 3 DO NOT TEXT EDIT THIS LINE :[id number]: Authenticated by YRIS WILKINS APRN On 06/03/2013 01:41:28 PM Authenticated by ROBERT MEEKS M.D. On 06/05/2013 01:04:56 PM documented in this encounter Plan of Treatment Upcoming Encounters Date Type Department Care Team (Late st Contact Info) Description 07/20/2025 3:15 PM EST Office Visit [facility] R[facility]ATOLOGY [address] [facility] [address] [place] [address] Gabo Da Silva APRN [address] [facility] [address] [place] [address] 08/10/2025 8:30 AM EST Appointment [facility] OUTPATIENT ONCOLOGY [place] [address] [facility] [address] [place] [id number] documented as of this encounter Visit Diagnoses Not on filedocumented in this encounter Additional Health Concerns Infection Onset Date Last Indicated Resolved Time COVID Screen (preop/placement) 01/31/2022 01/31/2022 09/05/2023 12:11 PM EST documented as of this encounter Care Teams Dental Aide Relationship Specialty Start Date End Date Jacob Magana MD [address] [facility] [address] [place] [address] PCP - General Adolescent Medicine 08/10/22 documented as of this encounter
--- OUTSIDE RECORDS SUMMARY | 2025-04-15 09:43 | XMS_ITS | Clinical Summary ---
Author Organization [facility] Address [address] [place] [address] Care Team Providers Care Aircraft Assembler Name Role Phone Mitul Weinberg MD Primary Care Provider Social History Tobacco Use Types Packs/Day Years Used Date Smoking Tobacco: Never Assessed Sex and Gender Information Value Date Recorded Sex Assigned at Not on file Legal Sex Male 6:26 PM EDT Gender Identity Not on file Sexual Orientation Not on file Plan of Treatment Health Maintenance Due Date Last Done Comments [facility]-Depression Screening 1955 [facility]-Infant/Child/Adol SDOH Screenings 1955 [facility]- SDOH Screenings 09/26/1971 [facility]-Adult SDOH Screenings 09/26/1971 CT Colonography 1998 Colonoscopy 1998 FIT-DNA 1998 FIT 1998 FOBT 1998 Sigmoidoscopy 1998 [facility]-Colorectal Cancer Screening 1998 [facility]-Zoster Vaccines (2 of 3) 11/07/2015 09/12/2015 [facility]-DTaP,Tdap,and Td Vaccine s (2 - Td or Tdap) 03/10/2025 03/10/2015 [id number] Vaccine (3 - season) 2025 10/12/2020, 09/14/2020 [facility]-Influenza Vaccine (#1) 03/15/202507/26, 05/23/2018 [facility]-RSV Vaccine: 60+ Years o r (1 - 1-dose 75+ series) 2028 [facility]-Pneumococcal Vaccine: 50 + Years Completed 07/26/2020, 02/24/2019 HPV Vaccines Aged Out No longer eligi ble based on patient's age to complete this topic [facility]-HIB Vaccines Aged Out No longer e ligible based on patient's age to complete this topic [facility]-Hepatitis A Vaccines Aged Out No longer eligible based on patient's age to complete this topic [facility]-IPV Vaccines Aged Out No longer e ligible based on patient's age to complete this topic [facility]-Rotavirus Vaccines Aged Out No lo nger eligible based on patient's age to complete this topic Insurance MEDICARE Member Subscriber Plan / Payer (Ef fective 2015-Present) Name:Tyron Baker Member ID:[id number] Relation to Subscriber:Self Name:Tyron Baker Subscriber ID:[id number] Payer ID:MEDICARE Group ID:Not on file Type:Medicare Address: [address] [facility] [place] [address] Care Teams Aircraft Assembler Relationship Specialty Start Date End Date Mitul Weinberg MD [address] [place] [address] PCP - General 11/25/20
--- OUTSIDE RECORDS SUMMARY | 2025-04-15 09:43 | XMS_ITS | Clinical Summary ---
Author Organization [facility] Address [address] [place] [address] Care Team Providers Care Hall Porter Name Role Phone Jacob Magana MD Primary Care Provider [phone] Allergies Active Allergy Reactions Criticality Noted Date Comments Amlodipine Dizziness Medium 01/23/2021 Codeine Nausea Only Low 03/13/2016 Lisinopril Diarrhea Medium 09/22/2018 Medications Multiple Vitamin (MULTI VITAMIN MENS PO) Take 1 tablet by mouth Daily. Cut back on vitamin Active RiTUXimab (RITUXAN) 10 MG/ML solution injection Infuse 1 mL into a venous catheter Every 6 (Six) Months. Active lisinopril (PRINIVIL,ZESTRIL) 20 MG tablet Take 1 tablet by mouth Daily. 04/02/20 22 Active pantoprazole (PROTONIX) 40 MG EC tablet Take 1 tablet by mouth 2 (Two) Times a Day. 180 tablet 3 05/18/20 22 Active diphenhydrAMINE (BENADRYL) 25 mg capsule Take 1 capsule by mouth Every 6 (Six) Hours As Needed for Itching. Active furosemide (LASIX) 20 MG tablet Take 1 tablet by mouth Daily. 12/04/19 24 Active Sod Picosulfate-Mag Ox-Cit Acd (Clenpiq) 10-3.5-12 MG-GM -GM/160ML solution Take 350 mL by mouth Take As Directed. 350 mL 03/31/20 24 Active cimetidine (Tagamet HB) 200 MG tablet Every 12 (Twelve) Hours. Active alfuzosin (UROXATRAL) 10 MG 24 hr tablet take 1 tablet by mouth every day 01/08/20 25 Active finasteride (PROSCAR) 5 MG tablet take 1 tablet by mouth every day 01/09/20 25 Active leflunomide (Arava) 20 MG tablet Take 1 tablet by mouth Daily. 30 tablet 5 04/13/20 25 Active hydroxychloroquine (Plaquenil) 200 MG tablet Take 1 tablet by mouth 2 (Two) Times a Day. 60 tablet 5 04/13/20 25 Active predniSONE (DELTASONE) 5 MG tablet Take 1 tablet by mouth Daily. 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 360 tablet 1 04/13/20 25 Active triamterene-hydroc hlorothiazide (MAXZIDE-25) 37.5-25 MG per tablet Take 1 tablet by mouth once daily with food 90 tablet 06/24/20 025 Discontinue d(Patient Reported Not Taking) NIFEdipine CC (ADALAT CC) 30 MG 24 hr tablet Take 1 tablet by mouth Daily. 05/19/20 24 025 Discontinue d(Patient Reported Not Taking) predniSONE (DELTASONE) 5 MG tablet Take 1 tablet by mouth Daily. 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 360 tablet 1 10/27/19 25 025 Discontinue d(Reorder) hydroxychloroquine (Plaquenil) 200 MG tablet Take 1 tablet by mouth 2 (Two) Times a Day. 025 Discontinue d(Reorder) leflunomide (Arava) 20 MG tablet Take 1 tablet by mouth Daily. 025 Discontinue d(Reorder) Active Problems Problem Noted Date Diagnosed Date Primary osteoarthritis involving multiple joints 01/06/2024 Assessment & Plan (04/13/2025 9:07 AM EDT): Tylenol PRN Is ok as directed He avoids oral NSAIDS due to renal problems Continue/refill Tramadol PRN He has seen [facility] in the past He has had back injections in the past. Assessment & Plan (10/26/2024 11:35 AM EDT): Tylenol PRN Is ok as directed He avoids oral NSAIDS due to renal problems Continue/refill Tramadol PRN Assessment & Plan (06/08/2024 11:31 AM EST): Tylenol PRN Is ok as directed He avoids oral NSAIDS due to renal problems Continue/refill Tramadol PRN Assessment & Plan (01/06/2024 11:26 AM EDT): Tylenol PRN Is ok as directed He avoids oral NSAIDS due to renal problems Continue/refill Tramadol PRN Immunodeficiency due to drug therapy 01/06/2024 Assessment & Plan (04/13/2025 9:00 AM EDT): * IV Rituximab for RA every 6 [...] is going to have a surgical procedure Assessment & Plan (10/26/2024 11:33 AM EDT): * IV Rituximab for RA every 6 [...] 11/06/22 * 12 th round given 05/2023 *13th round given 07/13/24 & 07/28/24 1. Hold if the patient develops infection. 2. Avoid live vaccines while on this medication. 3. No recent serious infections 4. No infusion reactions. 5. Also hold this medication perioperatively if the patient is going to have a surgical procedure Assessment & Plan (06/08/2024 11:31 AM EST): * IV Rituximab for RA every 6 [...] is going to have a surgical procedure Assessment & Plan (01/06/2024 11:35 AM EDT): * IV Rituximab for RA every 6 [...] is going to have a surgical procedure High risk medication use 01/06/2024 Assessment & Plan (04/13/2025 9:00 AM EDT): Tramadol 50 mg PO every 6 hours PRN For pain relief Pain contract updated 04/13/25 Check MICHELLE and Drug screen as required. Drug screen ordered today Assessment & Plan (10/26/2024 11:35 AM EDT): Tramadol 50 mg PO every 6 hours PRN For pain relief Pain contract updated 01/06/24 Check MICHELLE and Drug screen as required. MICHELLE reviewed today. UDS - 06/07 Assessment & Plan (06/08/2024 11:31 AM EST): Tramadol 50 mg PO every 6 hours PRN For pain relief Pain contract updated 01/06/24 Check MICHELLE and Drug screen as required. Drug screen ordered today Assessment & Plan (01/06/2024 11:26 AM EDT): Tramadol 50 mg PO every 6 hours PRN For pain relief Pain contract updated 01/06/24 Check MICHELLE and Drug screen as required. Drug screen ordered today Current use of steroid medication 01/06/2024 Assessment & Plan (04/13/2025 9:00 AM EDT): Prednisone 5 mg/day for RA/joint pain Ideally he would taper off. Prior attempts to do so have failed. Refill today Assessment & Plan (10/26/2024 11:38 AM EDT): Prednisone 5 mg/day for RA/joint pain Ideally he would taper off. Prior attempts to do so have failed. Refill today Handout on prednisone given, discussed side effects of senior living use Assessment & Plan (06/08/2024 11:31 AM EST): Prednisone 5 mg/day for RA/joint pain Ideally he would taper off. Prior attempts to do so have failed. Refill today Assessment & Plan (01/06/2024 11:26 AM EDT): Prednisone 5 mg/day for RA/joint pain Ideally he would taper off. Prior attempts to do so have failed. Refill today Persistent fatigue after COVID-19 07/03/2021 Assessment & Plan (07/03/2021 1:35 PM EST): Instructed patient to drink plenty of fluids to stay well hydrated and eat well balanced diet. 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 Continue current treatment regimen. Blood pressure will be reassessed at the next regular appointment. Seropositive rheumatoid arthritis 03/13/2016 Assessment & Plan (04/13/2025 9:00 AM EDT): * Former patient of Dr. Torres & [...] review 9. Check labs 10. Continue/refill Leflunomide Assessment & Plan (10/26/2024 11:42 AM EDT): * Former patient of Dr. Torres & Dr. Nunez * onset approximately 1989 * Trial MTX, hospitalized with leukemia * Prednisone dose 5 mg to 10 mg daily * Humira stopped due to lack of efficacy * Enbrel he could not afford. * Arava he could not afford * Plaquenil stopped due to lack of efficacy. * NSAIDS stopped due to renal impairment. 1. Continue Rituximab 2. Rituximab will be given approximately every 6 months. 3. Continue prednisone. 4. Continue Tramadol PRN 5. Follow up in 4-6 months 6. 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 7. Refill medications today 8. We gave him a handout on Prednisone today. 9. Check labs Assessment & Plan (06/08/2024 11:39 AM EST): * Former patient of Dr. Torres & Dr. Nunez * onset approximately 1989 * Trial MTX, hospitalized with leukemia * Prednisone dose 5 mg to 10 mg daily * Humira stopped due to lack of efficacy * Enbrel he could not afford. * Arava he could not afford * Plaquenil stopped due to lack of efficacy. * NSAIDS stopped due to renal impairment. 1. Continue Rituximab. He thinks he may be over due for Rituximab, He is not sure when his last infusion was. 2. Rituximab will be given approximately every 6 months. 3. Continue prednisone. 4. Continue Tramadol PRN 5. Follow up in 4-6 months 6. 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 7. Refill medications today 8. We gave him a handout on hip pain to take home and review 9. Check labs Assessment & Plan (01/06/2024 11:35 AM EDT): * Former patient of Dr. Torres & Dr. Nunez * onset approximately 1989 * Trial MTX, hospitalized with leukemia * Prednisone dose 5 mg to 10 mg daily * Humira stopped due to lack of efficacy * Enbrel he could not afford. * Arava he could not afford * Plaquenil stopped due to lack of efficacy. * NSAIDS stopped due to renal impairment. 1. Continue Rituximab. He no showed for 11/25/23 infusion. He is not sure what happened. He says he was unaware that he had anything scheduled. We will try and get him rescheduled. Risks and benefits reviewed. 2. Rituximab will be given approximately every 6 months. 3. Continue prednisone. 4. Continue Tramadol PRN 5. Follow up in 4-6 months 6. 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 7. Refill medications today 8. We gave him a handout on hip pain to take home and review 9. 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 Pancytopenia 02/15/2017 02/06/2018 Overview (02/15/2017): Due to problem #1, now resolving Encounters Date Type Department Care Team Description 04/13/2025 8:30 AM EDT Office Visit [facility] RHE[facility] [address] [place] [phone] Johann Schaeffer DO Seropositive rheumatoid arthritis (Primary Dx); Current use of steroid medication; Immunodeficiency due to drug therapy; Encounter for therapeutic drug monitoring; Primary osteoarthritis involving multiple joints; High risk medication use; Fatigue, unspecified type; Chronic back pain, unspecified back location, unspecified back pain laterality 04/13/2025 Travel 02/09/2025 7:29 AM EDT - 02/09/2025 11:59 PM EDT Hospital Encounter [facility] OUTPATIENT ONCOL[facility]Y [address] [phone] Johann Schaeffer DO Seropositive rheumatoid arthritis (Primary Dx) Discharge Disposition: Home or Self Care 02/09/2025 Travel 01/26/2025 8:00 AM EDT - 01/26/2025 11:59 PM EDT Hospital Encounter [facility] [place] [address] [phone] Johann Schaeffer DO Seropositive rheumatoid arthritis (Primary Dx); Immunodeficiency due to drug therapy; Current use of steroid medication Discharge Disposition: Home or Self Care 01/26/2025 Results Follow-Up [facility] [address] [place] [phone] Janice Pehlps APRN 01/26/2025 Travel from Last 3 Months Immunizations Immunization Administration Dates Next Due COVID-19 (MODERNA) 1st,2nd,3 rd Dose Monovalent 11/27/2020,10/12/2020,09/14/2020 COVID-19 (UNSPECIFIED) 09/15/2020 Fluad Quad 65+ 07/26/2020 Fluzone (or Fluarix & Flulav al for VFC) >6mos 05/23/2018 Influenza, Unspecified 04/04/2020 Pneumococcal Conjugate 13-Valent (PCV13) 019 Pneumococcal Polysaccharide (PPSV23) 07/26/2020 Tdap 03/10/2015 Zostavax 09/12/2015 Family History Medical History Relation Name Comments Other Brother 1 Bacterial Menin gitis No Known Problems Brother 2 No Known Problems Brother 3 No Known Problems Brother 4 No Known Problems Brother 5 No Known Problems Daughter COPD Father Other Maternal Grandfather unknown Other Maternal Grandmother unknown Leukemia Mother Rheum arthritis Mother Lung cancer Paternal Grandfather Other Paternal Grandmother unknown No Known Problems Sister 1 Lupus Sister 2 Relation Name Status Comments Brother 1 Brother 2 Alive Brother 3 Alive Brother 4 Alive Brother 5 Alive Daughter Alive Father Maternal Grandfather Maternal Grandmother Mother Paternal Grandfather Paternal Grandmother Sister 1 Alive Sister 2 Alive Social History Tobacco Use Types Packs/Day Years Used Date Smoking Tobacco: Former Cigarettes 1 15 1 09/03/1982 - 1994 Passive Smoke Exposure: Past Smokeless Tobacco: Never Tobacco Cessation:Counseling Given: Not Answered Alcohol Use Standard Drinks/Week Comments No 0 (1 standard drink = 0.6 oz pur e alcohol) PHQ-2 Answer Date Recorded Retired Total Score 0 07/26/2020 Sex and Gender Information Value Date Recorded Sex Assigned at Male 04/06/2025 8:37 AM EDT Legal Sex Male 11:44 AM EDT Gender Identity Not on file Sexual Orientation Not on file Last Filed Vital Signs Vital Sign Reading Time Taken Comments Blood Pressure 126/78 04/13/2025 8:40 AM EDT Pulse 70 04/13/2025 8:40 AM EDT Temperature 36.6 C (97.8 F) 02/09/2025 10:53 AM EDT Respiratory Rate 18 02/09/2025 8:00 AM EDT Oxygen Saturation 97% 01/15/2024 2:04 PM EDT Inhaled Oxygen Concentration - - Weight 93.8 kg (206 lb 14.4 oz) 04/13/2025 8:40 AM EDT Height 182.9 cm (6' 0.01 ) 04/13/2025 8:40 AM ED T Body Mass Index 28.05 04/13/2025 8:40 AM EDT Plan of Treatment Upcoming Encounters Date Type Department Care Team (Late st Contact Info) Description 07/20/2025 3:15 PM EST Office Visit [facility] RHEUMATOLOGY [address] [place] [address] Gabo Da Silva APRN [address] [place] [address] 08/10/2025 8:30 AM EST Appointment [facility]PAT[facility] [place] [address] [facility] [address] [place] [address] Health Maintenance Due Date Last Done Comments COLOGUARD 1998 COLON CANCER SCREENING 5 YEA R SIGMOIDOSCOPY 1998 [address] COLONOGRAPHY 1998 FECAL OCCULT BLOOD TEST 1998 FIT Testing (1 year) 1998 ZOSTER VACCINE (1 of 2) 11/07/2015 09/12/2015 ANNUAL WELLNESS VISIT 12/13/2023 12/12/2022 , 11/29/2021, 07/26/2020, Additional history exists INFLUENZA VACCINE 02/12/2025 04/10/2023, , 04/02/2022, Additional history exists TDAP/TD VACCINES (2 - Td or Tdap) 03/10/2025 015 COVID-19 Vaccine (5 - 2024-2 6 season) 2025 11/27/2020, 10/12/2020, 09/15/2020, Additional history exists COLONOSCOPY 04/07/2027 04/07/2024, 02/14, 03/13/2021, Additional history exists COLORECTAL CANCER SCREENING 04/07/2027 HEPATITIS C SCREENING Completed 02/24/2019 Pneumococcal Vaccine 50+ Completed 07/26/2020, 02/12 AAA SCREEN ONCE Completed 12/25/2022, 12/13, 02/22/2017, Additional history exists Procedures Procedure Name Priority Date/Time Associated Diagnosis Comments CBC W/MANUAL DIFFERENTIAL Routine 01/26/2025 8:17 AM EDT Seropositive rheumatoid arthritis Immunodeficiency due to drug therapy Current use of steroid medication LASC SLIDE CREATION Routine 01/26/2025 8 :17 AM EDT Seropositive rheumatoid arthritis Immunodeficiency due to drug therapy Current use of steroid medication MANUAL DIFFERENTIAL Routine 01/26/2025 8 :17 AM EDT Seropositive rheumatoid arthritis Immunodeficiency due to drug therapy Current use of steroid medication CBC WITH AUTO DIFFERENTIAL Routine 01/26/2025 8:17 AM EDT Seropositive rheumatoid arthritis Immunodeficiency due to drug therapy Current use of steroid medication SEDIMENTATION RATE Routine 01/26/2025 8: 17 AM EDT Seropositive rheumatoid arthritis Immunodeficiency due to drug therapy Current use of steroid medication C-REACTIVE PROTEIN Routine 01/26/2025 8: 17 AM EDT Seropositive rheumatoid arthritis Immunodeficiency due to drug therapy Current use of steroid medication COMPREHENSIVE METABOLIC PANEL Routine 01/26/2025 8:17 AM EDT Seropositive rheumatoid arthritis Immunodeficiency due to drug therapy Current use of steroid medication SCANNED - COLONOSCOPY 04/07/2024 HEPATITIS C ANTIBODY Routine 02/24/2019 11:13 AM EDT Need for hepatitis C screening test SCANNED - INFLUENZA 05/23/2018 CT ABDOMEN PELVIS W CONTRAST Routine 02/22/2017 1:47 PM EDT Rheumatoid arthritis involving both hands with positive rheumatoid factor Large granular lymphocytosis from Last 3 Months or Most Recently Relevant to Health Maintenance Results * LSAC Slide Creation (01/26/2025 8:17 AM EDT) Blood Line / Unknown 01/26/2025 8: 17 AM EDT 01/26/2025 8:32 AM EDT us Janice Phelps GENERAL SURGERY PHYSICIAN ASSISTANT LAB BLOOD ORDER ONLY Final Result [facility]
[address] [facility] [address] [place] [id number], * CBC Auto Differential (01/26/2025 8:17 AM EDT) WBC 8.19 3.40 - 10.80 10*3/mm3 01/26/2025 9:08 AM EDT [facility] RBC 4.69 4.14 - 5.80 10*6/mm3 01/26/2025 9:08 AM EDT [facility] Hemoglobin 14.7 13.0 - 17.7 g/dL 01/26/2025 9:08 AM EDT [facility] Hematocrit 44.3 37.5 - 51.0 % 01/26/2025 9:08 AM EDT [facility] MCV 94.5 79.0 - 97.0 fL 01/26/2025 9:08 AM EDT [facility] MCH 31.3 26.6 - 33.0 pg [facility] MCHC 33.2 31.5 - 35.7 g/dL 01/26/2025 9:[facility] RDW 12.6 12.3 - 15.4 % 01/26/2025 9:08 AM [facility] RDW-SD 44.9 37.0 - 54.0 fl 01/26/2025 9:08 AM [facility] MPV 9.6 6.0 - 12.0 fL 01/26/2025 9:08 AM [facility] Platelets 143 140 - 450 10*3/mm3 01/26/2025 9:08 AM [facility] Blood Line / Unknown 01/26/2025 8: 17 AM EDT 01/26/2025 8:32 AM EDT us Janice Phelps APRN LAB BLOOD ORDERABLES Final Result [facility]
[address] [place] [address], * (ABNORMAL) Manual Differential (01/26/2025 8:17 AM EDT) Neutrophil % 77.0(H) 42.7 - 76.0 % 01/26/2025 9:08 AM EDT [facility] Lymphocyte % 15.0(L) 19.6 - 45.3 % 01/26/2025 9:08 AM EDT [facility] Monocyte % 7.0 5.0 - 12.0 % 01/26/2025 9:08 AM EDT [facility] Eosinophil % 1.0 0.3 - 6.2 % 01/26/2025 9:08 AM EDT [facility] Neutrophils Absolute 6.31 1.70 - 7.00 10*3/mm3 01/26/2025 9:08 AM EDT [facility] Lymphocytes Absolute 1.23 0.70 - 3.10 10*3/mm3 01/26/2025 9:08 AM EDT [facility] Monocytes Absolute 0.57 0.10 - 0.90 10*3/mm3 01/26/2025 9:[facility] Eosinophils Absolute 0.08 0.00 - 0.40 10*3/mm3 01/26/2025 9:08 AM [facility] RBC Morphology Normal Normal 01/26/2025 9:08 AM [facility] WBC Morphology Normal Normal 01/26/2025 9:08 AM [facility] Platelet Estimate Adequate Normal 01/26/2025 9:08 AM [facility] Large Platelets Slight/1+ None Seen 9:08 AM [facility] Blood Line / Unknown 01/26/2025 8: 17 AM EDT 01/26/2025 8:32 AM EDT us Janice Phelps GENERAL SURGERY PHYSICIAN ASSISTANT LAB BLOOD ORDERABLES Final Result [facility]
[address] [place] [address], * Sedimentation Rate (01/26/2025 8:17 AM EDT) Sed Rate 4 0 - 20 mm/hr 01/26/2025 8:38 AM EDT [facility] Blood Line / Unknown 01/26/2025 8: 17 AM EDT 01/26/2025 8:32 AM EDT Janice Phelps APRN LAB BLOOD ORDERABLES Final Result [facility]
[address] [facility] [address] [place] [address], * C-reactive Protein (01/26/2025 8:17 AM EDT) C-Reactive Protein <0.30 0.00 - 0.50 mg/dL 01/26/2025 8:55 AM EDT [facility] Blood Line / Unknown 01/26/2025 8: 17 AM EDT 01/26/2025 8:32 AM EDT Janice Phelps APRN LAB BLOOD ORDERABLES Final Result Performing Organization Address City/[facility]/ZIP Co de Phone Number [facility]
[address] [place] [address], * (ABNORMAL) Comprehensive Metabolic Panel (01/26/2025 8:17 AM EDT) Glucose 97 65 - 99 mg/dL 01/26/2025 8:56 AM EDT [facility] BUN 15.5 8.0 - 23.0 mg/dL 01/26/2025 8:56 AM EDT [facility] Creatinine 1.41(H) 0.76 - 1.27 mg/dL 01/26/2025 8:56 AM EDT [facility] Sodium 144 136 - 145 mmol/L 01/26/2025 8:56 AM EDT [facility] Potassium 4.6 3.5 - 5.2 mmol/L 01/26/2025 8:56 AM EDT [facility] Chloride 105 98 - 107 mmol/L 01/26/2025 8:56 AM EDT [facility] CO2 27.4 22.0 - 29.0 mmol/L 01/26/2025 8:56 AM EDT [facility] Calcium 9.6 8.6 - 10.5 mg/dL 01/26/2025 8:56 AM [facility] Total Protein 6.8 6.0 - 8.5 g/dL 01/26/2025 8:56 AM [facility] Albumin 4.4 3.5 - 5.2 g/dL 01/26/2025 8:56 AM [facility] ALT (SGPT) 19 1 - 41 U/L 01/26/2025 8:56 AM [facility] AST (SGOT) 22 1 - 40 U/L 01/26/2025 8:56 AM [facility] Alkaline Phosphatase 77 39 - 117 U/L 01/26/2025 8:56 AM [facility] Total Bilirubin 0.5 0.0 - 1.2 mg/dL 01/26/2025 8:56 AM [facility] Globulin 2.4 gm/dL 01/26/2025 8:56 AM [facility] A/G Ratio 1.8 g/dL 01/26/2025 8:56 AM [facility] BUN/Creatinine Ratio 11.0 7.0 - 25.0 01/26/2025 8:56 AM [facility] Anion Gap 11.6 5.0 - 15.0 mmol/L 01/26/2025 8:56 AM [facility] eGFR 53.3(L) >60.0 mL/min/1.7 3 01/26/2025 8:56 AM [facility] Blood Line / Unknown 01/26/2025 8: 17 AM EDT 01/26/2025 8:32 AM [facility] - 01/26/2025 8:56 AM EDT GFR Categories in Chronic Kidney Disease (CKD) GFR Category GFR (mL/min/1.73) Interpretation G1 90 or greater Normal or high (1) G2 60-89 Mild decrease (1) G3a 45-59 Mild to moderate decrease G3b 30-44 Moderate to severe decrease G4 15-29 Severe decrease G5 14 or less Kidney failure (1)In the absence of evidence of kidney disease, neither GFR category G1 or G2 fulfill the criteria for CKD. eGFR calculation 2020 CKD-EPI creatinine equation, which does not include race as a factor Janice Lenin ALDANA LAB BLOOD ORDERABLES Final Result Performing Organization Address City/[facility]/ZIP Co de Phone Number [facility]
[address] [facility] [address] [place] [address], [place] * Colonoscopy, Scan (04/07/2024) Barron Alvarado MD CHART REVIEW TABS Final Result * Hepatitis C Antibody (02/24/2019 11:13 AM EDT) Hepatitis C Ab Non-Reacti ve Non-Reacti ve 02/24/2019 7:24 PM EDT [facility] Blood Left upper arm structure / Unknown Venipuncture / Unknown 02/24/2019 11:13 AM EDT 02/24/2019 11:13 AM EDT Mitul Weinberg MD LAB BLOOD ORDERABLES Final Re sult Performing Organization Address City/[facility]/ZIP Co de Phone Number [facility]
[address] [place] [address], [place] [phone] * SCANNED - INFLUENZA (05/23/2018) Mitul Weinberg MD CHART REVIEW TABS Final Re sult * CT Abdomen Pelvis With Contrast (02/22/2017 1:47 PM EDT) Anatomical Region Laterality Modality Abdomen, Pelvis N/A Computed Tomogra phy 02/22/2017 4:24 PM EDT Impressions 02/23/2017 10:52 AM EDT Stable chest exam with mild left basilar lung scarring. No new chest disease is seen. ABDOMEN AND PELVIS CT SCAN WITH ORAL AND IV CONTRAST: The gallbladder is surgically absent. No significant abnormalities are noted of the liver, spleen, pancreas, adrenal glands, or right kidney. There is a small left lower pole renal cyst. No upper abdominal adenopathy, ascites, or acute inflammatory change is seen. Bowel loops are normal in caliber and grossly normal in appearance. Regarding the lower abdomen and pelvis, there are bilateral hip prostheses, which markedly limit detail of the pelvic floor. Above this level, however, the dome of the bladder appears grossly normal. No mass or adenopathy is seen. Bowel loops appear grossly normal. The bony structures appear to be grossly intact. IMPRESSION: No evidence of acute intra-abdominal or intrapelvic disease. E: 02/22/2017 This report was finalized on 02/23/2017 10:[address] Cesar Vigil MD. Narrative 02/23/2017 10:52 AM EDT EXAMINATION: CT CHEST W CONTRAST, CT ABDOMEN AND PELVIS W CONTRAST-02/22/2017: INDICATION: Rheumatoid arthritis with large granular lymphocytosis by history and unexplained weight loss on monoclonal antibodies that can cause lymphoma; M05.741-Rheumatoid arthritis with rheumatoid factor of right hand without organ or systems involvement; M05.742-Rheumatoid arthritis with rheumatoid factor of left hand without organ or systems involvement; D72.820-Lymphocytosis (symptomatic). TECHNIQUE: 5 mm post-IV contrast images through the chest and 5 mm postoral and IV contrast portal venous phase and delayed venous phase images through the abdomen and pelvis. The radiation dose reduction device was turned on for each scan per the ALARA (As Low as Reasonably Achievable) protocol. COMPARISON: Abdominal CT scan 10/28/2015. No previous chest CT scan. FINDINGS: The patient history indicates rheumatoid arthritis, unexplained weight loss on monoclonal antibody therapy. CT SCAN OF THE CHEST WITH IV CONTRAST: Mediastinal window images show no evidence of adenopathy. There is no pericardial or pleural effusion. Lung window images show mild left basilar pleural scarring, unchanged from the 10/28/[address] scan. No new pulmonary parenchymal disease is seen. There appears to be a suture line from previous lung biopsy in the left apex. The bony structures appear to be intact. Procedure Note Cesar Vigil MD - 02/23/2017 EXAMINATION: CT CHEST W CONTRAST, CT ABDOMEN AND PELVIS W CONTRAST-02/22/2017: INDICATION: Rheumatoid arthritis with large granular lymphocytosis by history and unexplained weight loss on monoclonal antibodies that can cause lymphoma; M05.741-Rheumatoid arthritis with rheumatoid factor of right hand without organ or systems involvement; M05.742-Rheumatoid arthritis with rheumatoid factor of left hand without organ or systems involvement; D72.820-Lymphocytosis (symptomatic). TECHNIQUE: 5 mm post-IV contrast images through the chest and 5 mm postoral and IV contrast portal venous phase and delayed venous phase images through the abdomen and pelvis. The radiation dose reduction device was turned on for each scan per the ALARA (As Low as Reasonably Achievable) protocol. COMPARISON: Abdominal CT scan 10/28/2015. No previous chest CT scan. FINDINGS: The patient history indicates rheumatoid arthritis, unexplained weight loss on monoclonal antibody therapy. CT SCAN OF THE CHEST WITH IV CONTRAST: Mediastinal window images show no evidence of adenopathy. There is no pericardial or pleural effusion. Lung window images show mild left basilar pleural scarring, unchanged from the 10/28/[address] scan. No new pulmonary parenchymal disease is seen. There appears to be a suture line from previous lung biopsy in the left apex. The bony structures appear to be intact. IMPRESSION: Stable chest exam with mild left basilar lung scarring. No new chest disease is seen. ABDOMEN AND PELVIS CT SCAN WITH ORAL AND IV CONTRAST: The gallbladder is surgically absent. No significant abnormalities are noted of the liver, spleen, pancreas, adrenal glands, or right kidney. There is a small left lower pole renal cyst. No upper abdominal adenopathy, ascites, or acute inflammatory change is seen. Bowel loops are normal in caliber and grossly normal in appearance. Regarding the lower abdomen and pelvis, there are bilateral hip prostheses, which markedly limit detail of the pelvic floor. Above this level, however, the dome of the bladder appears grossly normal. No mass or adenopathy is seen. Bowel loops appear grossly normal. The bony structures appear to be grossly intact. IMPRESSION: No evidence of acute intra-abdominal or intrapelvic disease. E: 02/22/2017 This report was finalized on 02/23/2017 10:[address] Cesar Vigil MD. Carter Monzon MD IMG CT ORDERABLES Final Result from Last 3 Months or Most Recently Relevant to Health Maintenance Insurance MEDICARE A & B [facility] Care Teams Hall Porter Relationship Specialty Start Date End Date Jacob Magana MD [address] [facility] [address] [place] [id number] PCP - General Adolescent Medicine 08/10/22
--- OUTSIDE RECORDS SUMMARY | 2025-04-15 09:43 | XMS_ITS | Clinical Summary ---
Author Organization [facility] Address [address] [place] [address] Phone Care Team Providers Care Trade Manager Name Role Phone Katarzyna INGRAM, Agusto Dempsey Unavailable [ ] Conditions or Problems No information available. Medications Medication Instructions Start Date Stop Date Generic Name NDC Provider VALTREX 500 MG TABS Take 1 tablet by mouth daily 5 VALACYCLOVIR HCL [id number] Agusot Colón MD Medications Administered No information available. Allergies, Adverse Reactions, Alerts No information available. Results Date Name Value Unit Range Flag Description Lab Report: CBC w Auto Diff BASOPHIL % 0.0 % 0.0-1.0 N Basophils/ 100 leukocytes in Blood by Manual count % EOS AUTO 0.0 % 0.0-3.0 N Eosinophil s/100 leukocytes in Blood by Automated count MONOCYTE BF 20.0 % 0.0-12.0 H monocyte s as percent of body fluid leukocytes LYMPHS % 51.3 % 24.0-44.0 H Lymphocyte s/100 leukocytes in Blood by Automated count PMN % 28.7 % 41.0-71.0 L Neutrophils /100 leukocytes in Blood by Automated count BASOABSOLMAN 0.00 K/MCL {Cells}/u L 0.00-0.20 N basophils, absolute, manual EOS ABSLT 0.00 10*3/uL 0.10-0.30 L Eosinophi ls [#/volume] in Blood MONOCYTABMAN 0.16 K/MCL {Cells}/u L 0.00-1.00 N monocytes, absolute, manual LYMPHSABSMAN 0.41 K/MCL {Cells}/u L 0.60-4.80 L lymphocytes, absolute, manual ABS NEUTROPH 0.23 10*3/uL 1.50-8.30 L Neutro phils [#/volume] in Blood PLATELETS 285 10*3/mm3 150-450 N Platelets [#/volume] in Blood by Automated count RDW_ 22.6 11.3-14.5 H RDW, no uni ts MCHC 30.6 G/DL 32.0-36.0 L MCHC [Mass/ volume] by Automated count MCH 23.9 pg 27.0-31.0 L MCH [Entiti c mass] by Automated count MCV 78.1 fL 80.0-99.0 L MCV [Entiti c volume] by Automated count HCT 36.3 % 38.9-50.9 L Hematocrit [Volume Fraction] of Blood by Automated count HGB 11.1 g/dL 13.1-17.5 L Hemoglobin [Mass/volume] in Blood RBC 4.65 M/MCL 10*6/mm3 4.20-5.76 N Erythro cytes [#/volume] in Blood by Automated count WBC 0.80 10*3/mm3 3.50-10.80 AA Leukocyte s [#/volume] in Blood by Automated count Lab Report: Comprehensive Me tabolic Panel ANIONGAP 10 mmol/L 3-11 N anion gap, s oli GFRC 112 mL/min/1. 73m2 Glomerular Filtration Rate Calculation ALBUMIN 3.5 g/dL 3.4-4.8 N Albumin [Mass/volume] in Serum or Plasma PROTEIN, TOT 7.3 g/dL 6.4-8.3 N Protein [Mass/volume] in Serum or Plasma BILI TOTAL 0.4 mg/dL 0.3-1.2 N Bilirubin. total [Mass/volume] in Serum or Plasma SGPT (ALT) 68 U/L 7-40 H Alanine aminotransferase [Enzymatic activity/volume] in Serum or Plasma SGOT (AST) 32 U/L 8-33 N Aspartate aminotransferase [Enzymatic activity/volume] in Serum or Plasma ALK PHOS 386 U/L 25-100 H Alkaline giovanni sphatase [Enzymatic activity/volume] in Blood CALCIUM 8.7 mg/dL 8.7-10.4 N Calcium [Moles/volume] in Serum or Plasma CO2 23 mmol/L 20-31 N Carbon dioxid e, total [Moles/volume] in Venous blood CHLORIDE 103 mmol/L 98-107 N Chloride [Moles/volume] in Serum or Plasma POTASSIUM 4.4 mmol/L 3.4-5.4 N Potassium [Moles/volume] in Serum or Plasma SODIUM 136 mmol/L 136-145 N Sodium [Moles/volume] in Serum or Plasma CREATININE 0.7 mg/dL 0.6-1.3 N Creatinine [Mass/volume] in Serum or Plasma BUN 15 mg/dL 6-20 N Urea nitrogen [Mass/volume] in Serum or Plasma GLUCOSE SER 118 mg/dL 70-100 H Glucose [Mass/volume] in Serum or Plasma Plan of Care No information available. Procedures No information available. Vital Signs No information available. Immunizations No information available. Advance Directives No information available.
--- OUTSIDE RECORDS SUMMARY | 2025-04-15 09:43 | XMS_ITS | Encounter Summary ---
Author Organization [facility] Address [address] [place] [address] Care Team Providers Care Mathematician Research Name Role Phone Jacob Magana MD Primary Care Provider [phone] Encounter Details Date Type Department Care Team (Latest Contact Info) Description 04/13/2025 Travel Social History Tobacco Use Types Packs/Day Years [...] Description 07/20/2025 3:15 PM EST Office Visit [facility] [address] [facility] [address] [place] [id number] Gabo Da Silva APRN [address] [facility] [address] [place] [address] 08/10/2025 8:30 AM EST Appointment [facility] [place] [address] [facility] [address] [place] [address] documented as of this encounter Visit Diagnoses Not on filedocumented in this encounter Care Teams Mathematician Research Relationship Specialty Start Date End Date Jacob Magana MD [address] [place] [address] [place] [id number] PCP - General Adolescent Medicine 08/10/22 documented as of this encounter
--- OUTSIDE RECORDS SUMMARY | 2025-04-15 09:43 | XMS_ITS | Patient Health Record ---
Author Organization [facility] Address [address] [place] [address] Care Team Providers Care Mail Clerk Name Role Phone Jeffrey Urena II Unavailable [phone] Hunter DO -Locker Attendant DO, Johann Unavailable Unavailable Allergies Allergen (clinical drug ingredient) [...] Referred Provider Specialty Radiology Referral Priority Routine Medications Medication SIG (Take, Route, Fr equency, Duration) Notes Start Date End Date Status Rituxan 10 mg/mL as directed intraven ously once a week; Duration: 4 dose(s) Active Multiple Vitamins 1 qd Ac tive lisinopril 20 mg 1 tab(s) orally once a day; Duration: 30 day(s) Active predniSONE 5 mg 1 tab(s) orally once a day; Duration: 30 day(s) Active Tagamet HB 200 mg 1 tab(s) orally 2 ti mes a day; Duration: 30 day(s) Active traMADol 50 mg 1 tab(s) orally every 6 hours Active Problems Problem Type SNOMED Code ICD Code Onset Dates Problem Status W/U Status Risk Notes Problem Solitary sacroiliitis (086943865) Sacroiliitis, not elsewhere classified (M46.1) Active confirmed Problem Lumbosacral spondylosis without myelopathy (87660363) Spondylosis without myelopathy or radiculopathy, lumbar region (M47.816) Active confirmed Problem Lumbar radiculopathy (324170685) Radiculopathy, lumbar region (M54.16) Active confirmed Problem Long-term current use of drug therapy (491385304) Other detention (current) drug therapy (Z79.899) Active confirmed Vital Signs Heart Rate 71 /min 04/14/2025 Blood pressure diastolic 81 mm Hg 04/14/2025 Height 72 in 04/14/2025 Blood pressure systolic 134 mm Hg 04/14/2025 Weight 212 lbs 04/14/2025 BMI 28.75 kg/m2 04/14/2025 Encounters Encounter Location Date Provider Diagnosis [facility] [address] [place] [address] 04/14/2025 Jeffrey Urena Other lay out technician (current) drug therapy Z79.899 ; Spondylosis without myelopathy or radiculopathy, lumbar region M47.816 ; Radiculopathy, lumbar region M54.16 and Sacroiliitis, not elsewhere classified M46.1 [facility] [address] [place] [address] 04/13/2025 Jeffrey Urena Assessments Encounter Date Diagnosis (ICD Code) Assessment Notes Treatment Notes Treatment Clinical Notes Section Notes 04/14/2025 Spondylosis without myelopathy or radiculopathy, lumbar [...] the repeat left-sided SI joint injection. 04/14/2025 Other lay out technician (current) drug therapy (ICD-10 - Z79.899) 04/14/2025 [...] left-sided SI joint injection. Plan Of Treatment Pending Test Test Name Order Date X ray : Spines, lumbar series w/flexion extension views 09/14/2022 Urine Test ANALYZER 11/28/2022 Urine Test ANALYZER 04/14/2025 Next Appt Details Provider Name:Jeffrey samuel, 04/29/2025 10:15:00 AM, [address], [place], [address], Insurance Providers Payer Name Payer Address Payer Phone Subscriber Number Group Number Insured Name Patient Relationship to Insured Coverage Start Date Coverage End Date [place] [address] [place] [address] [id number] Tyron Baker Self - patient is the insured [address] [place] [address] [place] [address] [phone] [id number] Tyron Baker Self - patient is the insured 6 Medical (General) History Medical History History ICD Code Large granular lymphocytic Leukemia Pancytopenia Renal Insuffciency Rheumatoid Arthritis Surgical History Surgery Date(Month/Year) Cholecystectomy 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
--- OUTSIDE RECORDS SUMMARY | 2025-04-15 09:43 | XMS_ITS ---
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 Trores & Dr. Nunez * onset approximately 1989 [...] and review 9. Check labs Esophageal reflux Current Treatment and Therapy Plans No current plan information found. 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 Pancytopenia 02/15/2017 02/06/2018 Overview (02/15/2017): Due to problem #1, now resolving
--- NOTE | 2025-04-15 09:47 | XR_ITS ---
FINAL REPORT CLINICAL HISTORY: lower back pain towards SI joints x3 weeks FINDINGS: LUMBAR SPINE Four views were obtained. There is no acute fracture. The disc spaces are well-preserved. There is prominent anterior osteophyte formation, particularly at L3-4. Bilateral hip prostheses are identified. There is no malalignment. IMPRESSION: Degenerative changes as above. Reviewed, Interpreted and Dictated by Wes Willard MD Transcribed by Shani Quezada Authenticated and [facility]
--- NOTE | 2025-04-15 09:47 | XR_ITS ---
FINAL REPORT CLINICAL HISTORY: SPONDYLOSIS W/OUT MYELOPATHY OR RADICULOPATHY, LUMBAR REGION FINDINGS: PELVIS One view was obtained. There is no fracture or dislocation. There are bilateral total hip prostheses. There is heterotopic bone formation superior to the greater trochanters. IMPRESSION: No acute process. Reviewed, Interpreted and Dictated by Wes Willard MD Transcribed by Shani Quezada Authenticated and [facility]
== END 2025-04-15 23:59 | disposition home or self-care (01) ==
LOC: RAD 09:39
PROVIDERS: PCP Internal Medicine Adolescent Medicine; Visit Provider Pain Medicine Interventional Pain Medicine
DX: M47.816 Spondylosis without myelopathy or radiculopathy, lumbar region (principal); M46.1 Sacroiliitis, not elsewhere classified
CPT/HCPCS: 72110; 72170

== ENCOUNTER 2025-07-02 08:57 | Day surgery (SDC) | payer MEDICARE, OTHER, SELFPAY ==
[2025-07-02 09:12] VITALS: BP 171/92; PULSE 69; RESP 18; TEMP 36.1; O2SAT 97; BMI 28.5
--- NOTE | 2025-07-02 09:12 | EXP.GEN.HP ---
HPI HPI HPI: Patient is a 69-year-old male who presents for colonoscopy. He has never had a colonoscopy at this facility. He states that he has had numerous colonoscopies in [place], a total of approximately 10. Details are unknown. However, he states that he has had them about every 1 to 2 years and the last 1 being 2 years ago. No family history of colon cancer. [facility] Disclaimer: The information contained in this section may have been updated after the patient was seen, as this information can be updated by other users. Medical History (Updated 07/02/25 @ 09:42 by Elvin Cooper MD) Enlarged prostate History of COVID-19 Hypertension History of Hodgkin's lymphoma Surgical History (Updated 07/02/25 @ 09:22 by Jovita Toledo RN) Hx of colonoscopy History of lung surgery H/O bilateral hip replacements Family History (Updated 07/02/25 @ 09:22 by Jovita Toledo RN) Mother Cancer Other COPD (chronic obstructive pulmonary disease) Social History (Updated 07/02/25 @ 09:33 by Jc Meredith CRNA) Smoking Status: Former smoker alcohol intake: never substance use type: denies use current occupational status: employed Travel in the last 8 weeks?: None caffeine: Yes Have you lived/traveled outside US in past 30 days?: No Contact w/someone who lives/traveled outside US past 30 days?: No Exposure to someone with infectious disease in past 14 days?: No Do you have a fever (greater than 100.4 F or 38 C)?: No Have you tested positive for COVID-19?: No Exposed to someone with COVID-19 in past 14 days?: No Do you have a sore throat?: No Do you have a cough?: No Do you have any weakness?: No Do you have any diarrhea?: No Are you experiencing any unusual bleeding?: No Do you have any muscle aches/pain?: No Do you have any abdominal pain?: No Are you experiencing loss of taste or smell?: No Other Medical History Have you received the Flu Vaccine for this season: No Have you received the Pneumonia Vaccine: Yes Meds Home Medications and Allergies Home Medications ?Medication ?Instructions ?Recorded ?Confirmed ?Type tramadol 50 mg tablet 50 mg PO DAILYP PRN pain 07/05/21 02/23/25 History triamterene 37.5 1 each PO DAILY Hypertension 07/05/21 02/23/25 History mg-hydrochlorothiazide 25 mg tablet zinc 50 mg tablet 50 mg PO DAILY Supplement 07/05/21 02/23/25 History cholecalciferol (vitamin D3) 25 1,000 unit PO DAILY Supplement 07/06/21 02/23/25 History mcg (1,000 unit) capsule amlodipine 5 mg tablet 5 mg PO DAILY #30 tabs 07/10/21 02/23/25 Rx aspirin 81 mg chewable tablet 81 mg PO DAILY ##30 07/10/21 02/23/25 Rx clopidogrel 75 mg tablet 75 mg PO DAILY #30 tabs 07/10/21 02/23/25 Rx furosemide 20 mg tablet 20 mg PO DAILY 10/28/23 02/23/25 History lisinopril 20 mg tablet 20 mg PO DAILY 10/28/23 02/23/25 History prednisone 5 mg/5 mL oral solution 5 mg PO DAILY 10/28/23 02/23/25 History pantoprazole 40 mg tablet,delayed 40 mg PO DAILY 02/23/25 02/23/25 History release sodium,potassium,mag sulfates 17.5 See Rx Instructions PO .COMPLEX 06/15/25 Rx gram-3.13 gram-1.6 gram oral soln #354 mL (Suprep Bowel Prep Kit) New Prescriptions to Start Prescriptions: Allergies Allergy/AdvReac Type Severity Reaction Status Date / Time codeine AdvReac Unknown NAUSEA/VOMI Verified 07/02/25 09:11 TING Exam Constitutional Constitutional: no acute distress *Routine HEENT Exam Head: Present normocephalic Eye: Present EOMI and PERRL ENT: Present mucous membranes moist *Routine Neck Exam Neck: Present supple; Absent lymphadenopathy *Routine Respiratory Exam Respiratory: Present CTA bilaterally *Routine Cardiovascular Exam Cardiovascular: Present RRR *Routine Abdominal Exam Abdominal: Present soft and normoactive bowel sounds; Absent tenderness *Routine Rectal Exam Rectal:: deferred *Routine Genitalia Exam Genitalia:: deferred *Routine Extremities Exam Extremities: Absent cyanosis, clubbing or edema *Routine Skin Exam Skin: Present warm; Absent rash *Routine Neurological Exam Neurological: Present alert and oriented X3 Assessment and Plan *Assessment and plan (1) History of colon polyps: Status: Acute Category: Medical Code(s): Z86.0100 - Personal history of colon polyps, unspecified Plan Plan was to proceed with colonoscopy since previous recommendations were for this to be done. Patient was prepared for the procedure. However it became apparent that he had been on dual antiplatelet therapy consisting of aspirin and clopidogrel neither of which had been held for the procedure. Due to the risk of inducing bleeding which may not be amenable to endoscopic control particularly if polypectomy is needed procedure will be canceled and rescheduled. Ideally he would need to be off of his clopidogrel for 5 days but may continue low-dose aspirin periprocedurally.
[2025-07-02] MEDS: LACTATED RINGERS 1000ML 1,000 ML 50 ML IV (09:26)
--- NOTE | 2025-07-02 09:33 | P.PNANES_ITS ---
[facility] Disclaimer: The information contained in this section may have been updated after the patient was seen, as this information can be updated by other users. Medical History (Updated 07/02/25 @ 09:22 by Jovita Toledo RN) Enlarged prostate History of COVID-19 Hypertension History of Hodgkin's lymphoma Surgical History (Updated 07/02/25 @ 09:22 by Jovita Toledo RN) Hx of colonoscopy History of lung surgery H/O bilateral hip replacements Family History (Updated 07/02/25 @ 09:22 by Jovita Toledo RN) Mother Cancer Other COPD (chronic obstructive pulmonary disease) Social History (Updated 07/02/25 @ 09:23 by Jovita Toledo RN) Smoking Status: Former smoker alcohol intake: never substance use type: denies use current occupational status: employed Travel in the last 8 weeks?: None caffeine: Yes [facility] Anesthesia Checklist Patient Identification Patient Identification: Arm Band Structural Data Admitted From: Home Planned Operative Procedure/s: Colonoscopy Consent for Planned Operative Procedure(s) Verified: Yes Verified Documents: Surgical Consent and History and Physical NPO Status Verified Time NPO: 00:00 Additional verifications Anesthesia Reactions: No Airway Assessment Mallampati Score:: Class II C-Spine Mobility Assessed: Yes TMJ Mobility Assessed: Yes Dentition: Dentures-good fit Neurological Assessment Level of Consciousness: Awake, Alert and Appropriate Anesthesia Plan Anesthesia Risk discussed: Yes Anesthesia Plan: Verified ASA Class: II Anesthesia Type: MAC
== END 2025-07-02 10:00 | disposition home or self-care (01) ==
PROVIDERS: PCP Internal Medicine Adolescent Medicine; Visit Provider Surgery
PROC: 0DJD8ZZ Inspection of Lower Intestinal Tract, Via Natural or Artificial Opening Endoscopic (ICD-10-PCS; principal; 2025-07-02 09:30)
DX: Z12.11 Encounter for screening for malignant neoplasm of colon (principal); Z53.09 Procedure and treatment not carried out because of other contraindication; Z79.02 Long term (current) use of antithrombotics/antiplatelets; Z86.0100 Personal history of colon polyps, unspecified; Z79.82 Long term (current) use of aspirin; Z96.643 Presence of artificial hip joint, bilateral; I10 Essential (primary) hypertension; Z85.71 Personal history of Hodgkin lymphoma; N40.0 Benign prostatic hyperplasia without lower urinary tract symptoms; Z87.891 Personal history of nicotine dependence; Z79.899 Other long term (current) drug therapy; Z79.52 Long term (current) use of systemic steroids; Z88.5 Allergy status to narcotic agent
CPT/HCPCS: J7120